=== PATIENT | male | born 1945 | race Caucasian/White ===

== ENCOUNTER 2018-01-23 10:44 | Inpatient (IN) | payer MEDICARE ==
[2018-01-23 11:41] LABS: Bilirubin Negative (Negative); Blood, Urine Small (Negative); Clarity CLEAR (Clear); Glucose, Urine (Dipstick) Negative (Negative); Leukocyte Negative (Negative); Nitrite Negative (Negative); Protein, Urine (Dipstick) 30 mg/dL (Neg-Trace); Specific Gravity, Urine 1.022 (1.002-1.036); Urobilinogen 0.2 mg/dL (0.2-1.0); pH, Urine 6.5 (5.0-9.0)
[2018-01-23 11:42] LABS: #Lymphocytes 0.5 thou/uL (1.20-3.40); #Monocytes 0.7 thou/uL (0.11-0.59); #Neutrophils 15.3 thou/uL (1.40-6.50); %Basophils 0.2 % (0.0-1.0); %Eosinophils 0.1 % (0.0-10.0); %Lymphocytes 2.9 % (21.0-51.0); %Monocytes 4.2 % (0.0-10.0); %Neutrophils 92.5 % (42.0-75.0); Hemoglobin 12.6 g/dL (14.0-18.0); Mean Corpuscular HGB CONC 31.8 g/dL (32.0-36.0); Mean Corpuscular Hemoglobin 27.4 pg (27.0-31.0); Mean Platelet Volume 6.8 fL (7.4-10.4); Platelet Count 209 thou/uL (130-400); RBC Distribution Width 12.5 % (11.5-14.5); White Blood Cell (WBC) Count 16.5 thou/uL (4.8-10.8)
[2018-01-23 11:48] LABS: Bacteria/HPF None Seen HPF (None Seen); Hyaline Casts/LPF 0-3 HYALINE CAST LPF (0-3 Hyaline); Squamous Epithelial 0-3 HPF (0-3); WBC/HPF 0-3 HPF (0-3)
[2018-01-23 12:03] LABS: ALT (SGPT) 9 U/L (8-55); AST (SGOT) 15 U/L (5-34); Albumin 4.1 g/dL (3.4-4.8); Alkaline Phosphatase 111 U/L (40-150); Anion Gap 14 mmol/L (10-20); BUN (Urea Nitrogen) 16 mg/dL (8.4-25.7); Calc. Creatinine Clearance 0 mL/min (70-130); Carbon Dioxide 27 mmol/L (23-31); Chloride 105 mmol/L (98-107); Estimated GFR-MDRD 55; Globulin 1.7 g/dL (2.4-3.5); Glucose 129 mg/dL (83-110); Lipase 12 U/L (8-78); Potassium 3.8 mmol/L (3.5-5.1); Protein, Total 5.8 g/dL (5.8-8.1); Sodium 142 mmol/L (136-145)
[2018-01-23] MEDS ORDERED: Ondansetron ODT 4 MG TAB ONE (12:03)
[2018-01-23 12:04] LABS: Troponin I Less than 0.010 ng/mL (< 0.028)
[2018-01-23] MEDS ORDERED: Acetaminophen 500 MG TAB ONE (13:20)
[2018-01-23] MEDS ORDERED: ISOVUE-370 76%-LOCM 1 ML ONE (14:23)
--- NOTE | 2018-01-23 15:02 | CT ---
CT ABODMEN AND PELVIS: Date: 01/23/18 COMPARISON: 02/28/13. HISTORY: Right flank pain. TECHNIQUE: Serial axial CT imaging obtained at 5 mm intervals from lung bases through pubic symphysis without co ntrast. Coronal reformatted imaging obtained. FINDINGS: The lack of contrast media limits assessment of the viscera, bowel vascular structures, and for lymph adenopathy. There is a stable sliding-type hiatal hernia. Imaged lung bases are unremarkable. No free intraperito saurabh air. Liver is unremarkable. Mid hyperdense material in the gallbladder may signify sludge. Spleen, pancrea s, and adrenal glands are unremarkable. There is a lower pole left renal cyst measuring 2.9 cm. No evidence for obstructive uropathy or nephr olithiasis on the left. There is an exophytic lesion emanating from the lower pole of the right kidney anteriorly with Hounsf ield units of 10-15, suggesting a stable 2.8 cm cyst. Additional posterior right renal cyst measures 3.6 cm. No left nephrolithiasis or evidence of obstructive uropathy noted on the right. Total hip arthroplasty noted on the left. There is nonspecific mild stranding of the perirectal/presacral fat. Limited assessment of the bowel demonstrates no evidence for bowel obstruction or inflammatory change . In the left lower quadrant, lateral to the urinary bladder and posterior to the inguinal canal, there is a 5.8 x 8.0 cm fluid collection. This is felt to most likely represent a postoperative lymphocele associated with prior inguinal hernia repair. Clinical correlation is essential. There is no gas see n within this fluid collection. There is multifocal atherosclerotic calcification of the abdominal aorta and its branches. Osseous structures demonstrate no acute findings. Lower lumbar spine facet hypertrophic change noted, as well as prominent/severe multilevel lumbar spi ne degenerative change with disc space narrowing, degenerative end plate change, and osteophyte forma tion. IMPRESSION: 1. No evidence for obstructive uropathy or nephrolithiasis. 2. Nonspecific fluid collection within the left lower quadrant posterior to the inguinal region sugg esting a postoperative fluid collection associated with prior left inguinal hernia surgery repair in the proper clinical setting. This lesion measures up to 5.8 x 8.0 cm. There is no evidence for internet media planner al gas. Clinical correlation would be required to exclude infection. Results called to Dr. Ramos at 12:30 on 01/23/18. CODE CR. POS: [facility]
[2018-01-23] MEDS ORDERED: Ibuprofen 800 MG TAB ONE (15:59)
--- NOTE | 2018-01-23 16:02 | CT ---
CT ABDOMEN AND PELVIS: 01/23/2018 HISTORY: Right hip pain. Diarrhea and vomiting. Right flank pain. COMPARISON: Noncontrast enhanced CT performed earlier on 01/23/2018. TECHNIQUE: Serial axial CT imaging obtained at 5 mm intervals, from the lung bases through the pubic symphysis, with IV contrast. Coronal reformatted imaging obtained. FINDINGS: The imaged lung bases are unremarkable. There is no free intraperitoneal air. There is a tiny hypodense lesion within the right lobe of the liver, on image 27, too small to charac terize. The spleen, gallbladder, pancreas, adrenal glands, and kidneys demonstrate no acute findings . Stable bilateral renal cysts are noted. There is mild increased density within the presacral fat, which may be inflammatory in nature. There is a fluid collection in the left lower quadrant, with deviation of the urinary bladder to the right, measuring approximately 6 x 8.4 cm, as seen on recent noncontrast enhanced examination. This lesion demonstrates no significant internal enhancement. It demonstrates a thin wall with questionab le minimal wall enhancement. There is mild stranding of the fat adjacent to this left lower quadrant fluid collection. It contains no internal gas. Limited assessment of the bowel without oral contrast demonstrates no evidence for bowel obstruction or focal bowel inflammatory change. There is a hip arthroplasty on the right with adjacent heterotopic bone. Streak artifact from hip ar throplasty limits detailed assessment in this region. There is mild degenerative change at the pubic symphysis. The inferior and superior pubic rami appea r intact. There is extensive degenerative change involving the lower lumbar spine, including multilevel promine nt facet hypertrophy and multilevel thoracic spine and lumbar spine disk space narrowing, degenerativ e endplate change, and osteophyte formation. There are multiple varices in the splenic hilum. IMPRESSION: Nonspecific left lower quadrant fluid collection with a perceptible possibly slightly enhancing rim. There is mild stranding of the adjacent fat, which could be inflammatory in nature. Question a hist ory of prior left lower quadrant/left inguinal surgery. If so, this may represent a sterile or infec laith postoperative fluid collection, including lymphocele or old hematoma. If no history of surgery i n this region, this may represent abscess. No evidence for bowel inflammatory change or obstruction. Numerous additional incidental findings as described above. POS: [facility]
--- NOTE | 2018-01-23 16:07 | RAD ---
2 VIEWS RIGHT HIP: Date: 01/23/18 HISTORY: Right hip pain. History of prior right hip arthroplasty. COMPARISON: 09/18/02. FINDINGS: As noted on the prior study, there is a right total hip prosthesis in similar alignment to the prior exam. There is evidence of heterotopic ossification seen lateral to the right hip. No hardware compli cation is seen. There is no fracture or dislocation appreciated. There is contrast seen within the ur inary bladder, related to recent contrasted study. Contrast is also seen in the normal caliber distal ureters. There is mass effect on the left aspect of the urinary bladder secondary to the large cysti c structure in the left hemipelvis noted on recent CT scan exam. IMPRESSION: Right total hip prosthesis without evidence of an acute osseous abnormality of the right hip. POS: [facility]
[2018-01-23] MEDS ORDERED: Ondansetron ODT 4 MG TAB PO PRN (17:11)
[2018-01-23] MEDS ORDERED: Ondansetron HCl/PF 4 MG/2 ML Vial IVP PRN (17:11)
[2018-01-23] MEDS ORDERED: Milk Of Magnesia 30 ML UDCUP PO PRN (17:11)
[2018-01-23 19:23] VITALS: BMI 26.0
[2018-01-23] MEDS: Sodium Chloride 0.9% 1,000 ML IV SCH (20:17)
[2018-01-23] MEDS: Heparin 5,000 UNITS/ML VIAL SC SCH (20:26)
[2018-01-23] MEDS: Docusate 100 MG CAP PO SCH (20:26)
[2018-01-23] MEDS ORDERED: Pantoprazole 40 MG VIAL IVP SCH (21:00)
[2018-01-23] MEDS ORDERED: CARBINOXAMINE MALEATE 4 MG PO PRN (21:04)
[2018-01-23] MEDS ORDERED: Nitroglycerin 0.4 MG TAB (25 Tab Bottle) SL PRN (21:04)
--- NOTE | 2018-01-23 21:46 | HP ---
PRIMARY CARE PHYSICIAN: Srinivas Dixon M.D. PRESENTING COMPLAINT: Nausea, vomiting, and diarrhea. HISTORY OF PRESENT ILLNESS: Mr. Sly Palmer is a 72-year-old male with a past medical history of hy pertension, hypothyroidism, GERD, CAD status post 2 MIs, hyperlipidemia, and recent prostatectomy in 09/2017 who presented to the emergency room with 1 day history of nausea, vomiting, and diarrhea. He reports that yesterday evening, he ate fried chicken and Sami fries made by his son-in-law. Soon after, he felt his reflux was coming out, so he took his PPI; however, it did not work as usual as it usually does and then he started having nausea eventually vomiting about 4-6 times consisting of rec ently ingested meals and then became bilious. He also had multiple loose stools, moving his bowel ab out 4 times as well. He denies hematemesis or hematochezia. Diarrhea was also non-mucoid. He did n ot eat any other unusual meals and no depression with similar symptoms. He reports chills and subjec tive fevers, eventually lying down on the bathroom trials with a space heater, lying on his right irina e. Last vomiting/diarrhea episode was around 2:00 a.m. today. At the ER, his physical examination w as benign and labs were significant for a white count of 16,500 with 92% neutrophils, but no bands. Initial abdomen/pelvis CT revealed no evidence of obstructive uropathy or nephrolithiasis; however, t here was nonspecific fluid collection in the left lower quadrant posterior to the inguinal region sug gesting postoperative fluid collection associated with a prior left inguinal hernia surgery repair in proper clinical setting. The patient had a prostatectomy in 09/2017 and this is likely sequelae of his surgery. He was hydrated in the emergency room, given Tylenol, ibuprofen and IV Zofran. The jeromy n was then to discharge him in the hospital, but he then had difficulty ambulating and moving his rig ht hip. He has a history of right hip replacement in 2001. In addition, he developed a fever while in the emergency room with temperature reaching 102.9 degree Fahrenheit. Decision was then made to a dmit the patient for observation, and then to get PT/OT as well. He denies chest pain, shortness of breath, palpitations, PND, orthopnea, edema. He has no urinary symptoms. PAST MEDICAL HISTORY: Hypertension, hypothyroidism, GERD, history of MIs with CAD, hyperlipidemia. PAST SURGICAL HISTORY: Right hip replacement in 2001, both knee replacements in 2006, prostatectomy for prostate cancer in 09/2017 and right shoulder surgery in 2007. SOCIAL HISTORY: Does not drink alcohol, use illicit drugs or smoke cigarettes. FAMILY HISTORY: Reviewed and noncontributory. ALLERGIES: NIACIN and PEACONS. HOME MEDICATIONS: Amlodipine/atorvastatin 10/40 mg 1 tablet daily, aspirin 325 mg daily, citalopram hydrobromide 10 mg daily, clopidogrel bisulphate 75 mg tablet 0.5 tab daily, Dexilant 30 mg p.o. john y, levothyroxine 75 mcg daily, olmesartan medoxomil 40 mg daily, tamsulosin 0.4 mg daily, tramadol 5 0 mg daily. REVIEW OF SYSTEMS: A 12-point review of systems conducted, but negative except as stated in HPI. PHYSICAL EXAMINATION: VITAL SIGNS: Largely within normal limits except borderline low blood pressure of 105/65. GENERAL: Not in acute distress. Lying comfortably in bed. HEENT: Normocephalic, atraumatic. Not pale, anicteric. PERRLA, EOMI. Dry mucous membranes. NECK: Supple, full range of movement. No JVD. RESPIRATORY: Vesicular breath sounds bilaterally with no wheezes, rales or rhonchi. CARDIOVASCULAR: S1, S2 only. No murmurs, rubs or gallops. Regular rate and rhythm. ABDOMEN: Soft, nontender, nondistended. No hepatosplenomegaly. Bowel sounds normoactive. MUSCULOSKELETAL: No edema. NEUROLOGIC: Alert and well oriented. No focal deficits. PSYCHIATRIC: Normal mood and affect. SKIN: Warm, dry. No rashes or lesions. Well perfused. MUSCULOSKELETAL: No edema. Moves extremities spontaneously apart from difficulty in moving his righ t hip. LABORATORY DATA: Significant labs include WBC of 16,500 with 95% neutrophils. Serum chemistry is un remarkable. Initial troponin less than 0.010. Urinalysis with no signs of infection. ASSESSMENT AND PLAN: 1. Nausea/vomiting/diarrhea. This is likely secondary to gastroenteritis, likely a viral gastroente ritis and less likely bacterial. He has an episode of fever with T-max 102.9 degree Fahrenheit. He will be hydrated parenterally, and temperature curve will be monitored. We will hold off on antibiot ics for now. Blood and urine cultures will be followed and if he becomes febrile all cultures become positive, then antibiotics to be started. He is clinically stable for now. His presentation could also be due to exacerbation of his GERD, so we will start on IV Protonix 40 mg q.12 hours and monitor his response. 2. Gastroesophageal reflux disease: Plan as above. We will also restart his home p.o. medication. 3. Hypertension: Blood pressure is at goal, so we will hold off on amlodipine for now. We will mon itor blood pressure and then restart once appropriate. 4. Coronary artery disease: The patient has had 2 myocardial infarctions in the past. He is curren tly chest pain free. Initial troponin is negative. We will restart his aspirin and Plavix. 5. Hypothyroidism: We will continue levothyroxine. 6. Hyperlipidemia. Continue statin. 7. Deep venous thrombosis prophylaxis with subcutaneous heparin. 8. Status post prostatectomy. We will continue Flomax. 9. Inability to ambulate: Patient was lying on his bathroom floor for a prolonged period on his rig ht side, likely causing him to have difficulty ambulation now. Also he has a right hip prosthesis. We will get PT/OT evaluation and this will depend on his response to therapy. CODE STATUS: FULL CODE. We will also place on IV Zofran p.r.n. for nausea/vomiting.
[2018-01-23] MEDS: traMADol HCl 50 MG TAB PO PRN (23:26)
[2018-01-23] MEDS: Acetaminophen 325 MG TAB PO PRN (23:27)
[2018-01-24 04:58] LABS: Anion Gap 10 mmol/L (10-20); BUN (Urea Nitrogen) 22 mg/dL (8.4-25.7); Calc. Creatinine Clearance 72 mL/min (70-130); Calcium 8.8 mg/dL (7.8-10.44); Carbon Dioxide 26 mmol/L (23-31); Chloride 107 mmol/L (98-107); Estimated GFR-MDRD 67; Glucose 101 mg/dL (83-110); Potassium 3.9 mmol/L (3.5-5.1); Sodium 139 mmol/L (136-145)
[2018-01-24 05:42] LABS: Band 14 % (5-11); Hemoglobin 11.3 g/dL (14.0-18.0); Lymphocytes 11 % (21-51); MDiff Complete? YES; Mean Corpuscular HGB CONC 32.5 g/dL (32.0-36.0); Mean Corpuscular Hemoglobin 28.1 pg (27.0-31.0); Mean Corpuscular Volume 86.3 fl (80.0-94.0); Mean Platelet Volume 7.7 fL (7.4-10.4); Metamyelocyte 2 % (0-0); Monocytes 5 % (0-10); Neutrophil 67 % (42-75); PLT Morphology Comment Appears Adequate; Platelet Count 145 thou/uL (130-400); RBC Distribution Width 12.6 % (11.5-14.5); RBC Morphology Normal; Reactive Lymphocytes 1 % (0-10); Red Blood Cell (RBC) Count 4.01 mill/uL (4.70-6.10); White Blood Cell (WBC) Count 8.3 thou/uL (4.8-10.8)
[2018-01-24] MEDS: Levothyroxine Sodium 75 MCG TAB PO SCH (05:58)
[2018-01-24] MEDS: Sodium Chloride 0.9% 1,000 ML IV SCH ×3 (05:58→20:56)
[2018-01-24] MEDS: traMADol HCl 50 MG TAB PO PRN (08:01)
[2018-01-24] MEDS: Heparin 5,000 UNITS/ML VIAL SC SCH ×3 (08:02→20:56)
[2018-01-24] MEDS: Potassium Chloride 20 MEQ TAB PO SCH (08:03)
[2018-01-24] MEDS: Docusate 100 MG CAP PO SCH ×2 (08:03→20:55)
[2018-01-24] MEDS: Citalopram 10 MG TAB PO SCH (08:04)
[2018-01-24] MEDS: Tamsulosin HCl 0.4 MG CAP PO SCH (08:04)
[2018-01-24] MEDS: Loratadine 10 MG TAB PO SCH (08:04)
[2018-01-24] MEDS: Acetaminophen 325 MG TAB PO PRN (08:09)
[2018-01-24] MEDS ORDERED: LANSOPRAZOLE 15 MG PO SCH (09:00)
[2018-01-24] MEDS ORDERED: Clopidogrel Bisulfate 75 MG TAB PO SCH (09:00)
[2018-01-24] MEDS ORDERED: Aspirin 325 MG TAB PO SCH (09:00)
--- NOTE | 2018-01-24 11:52 | RAD ---
RIGHT SHOULDER THREE VIEWS: History: Right shoulder pain. FINDINGS/IMPRESSION: There are post op changes of right shoulder arthroplasty. Soft tissue air is present. There is degene rative change at the acromioclavicular joint. Soft tissue air may be due to recent post op change or gas forming bacteria/infection. Clinical corre lation is recommended. POS: [facility]
--- NOTE | 2018-01-24 12:11 | MRI ---
MRI BRAIN WITHOUT IV CONTRAST: Date: 01/24/18 HISTORY: New onset right-sided weakness. Right leg weakness. FINDINGS: No definite signal abnormalities are seen throughout the brain. There is no evidence of an acute infa rction. Septum pellucidum and third ventricle are in the midline. The ventricular system is normal in size, shape, and position. The right vertebral artery, as well as basilar artery are tortuous, but t here are otherwise appropriate flow-voids demonstrated to base of the brain. Mucosal thickening is present in the right maxillary antrum with minimal mucosal thickening seen in a few ethmoidal air cells. The orbits and remainder of the skull base have a normal MRI appearance. Prominent degenerative changes are seen at the odontoid anterior arch of C1 articulation. IMPRESSION: 1. No acute intracranial abnormalities demonstrated. 2. Mild sinus disease. POS: [facility]
--- NOTE | 2018-01-24 12:39 | PDOC.PN ---
- Subjective Encounter Start Date: 01/24/18 Encounter Start Time: 07:10 Subjective: mild llq pain, no nausea -: no diarrhea or vomiting now -: has chronic right shoulder and right hip pain which has gotten worse per pt - Objective MAR Reviewed: Yes Vital Signs & Weight: Vital Signs (12 hours) Temp Pulse Resp BP Pulse Ox 01/24/18 11:43 98.0 F 86 18 110/63 95 01/24/18 09:37 100.7 F H 89 18 Result Diagrams: 01/24/18 03:55 01/24/18 03:55 Phys Exam - Physical Examination HEENT: PERRLA, moist MMs Neck: no JVD, supple Respiratory: no wheezing, no rales Cardiovascular: RRR, no significant murmur Gastrointestinal: soft, no distention, positive bowel sounds no rigidity or guarding Musculoskeletal: no edema, pulses present right knee effusion++ Neurological: non-focal, moves all 4 limbs Psychiatric: normal affect, A&O x 3 Dx/Plan (1) Sepsis Code(s): A41.9 - SEPSIS, UNSPECIFIED ORGANISM Status: Acute Qualifiers: Sepsis type: sepsis due to unspecified organism Qualified Code(s): A41.9 - Sepsis, unspecified organism (2) Bacteremia Code(s): R78.81 - BACTEREMIA Status: Acute (3) Gastroenteritis Code(s): K52.9 - NONINFECTIVE GASTROENTERITIS AND COLITIS, UNSPECIFIED Status : Acute (4) CAD (coronary artery disease) Code(s): I25.10 - ATHSCL HEART DISEASE OF [place] CORONARY ARTERY W/O ANG PCTRS Status: Chronic Qualifiers: Coronary Disease-Associated Artery/Lesion type: [place] artery [place] vs. transplanted heart: [place] heart Associated angina: without angina Qualified Code(s): I25.10 - Atherosclerotic heart disease of [place] coronary artery without angina pectoris (5) HTN (hypertension) Code(s): I10 - ESSENTIAL (PRIMARY) HYPERTENSION Status: Chronic Qualifiers: Hypertension type: essential hypertension Qualified Code(s): I10 - Essential (primary) hypertension (6) Dyslipidemia Code(s): E78.5 - HYPERLIPIDEMIA, UNSPECIFIED Status: Chronic (7) H/O prostatectomy Code(s): Z90.79 - ACQUIRED ABSENCE OF OTHER GENITAL ORGAN(S) Status: Chronic Comment: in sep (8) Hypothyroidism Code(s): E03.9 - HYPOTHYROIDISM, UNSPECIFIED Status: Chronic Qualifiers: Hypothyroidism type: unspecified Qualified Code(s): E03.9 - Hypothyroidism , unspecified - Plan gm +ve rods 2/2 in blood, had temp of 102 on arrival, has llq 5x8cm mass -: also has 14%bands, gen surg consult, pt had likely robotic prostatectomy in -: [place] 09[place], await full culture results -: will place him on meropenem and vanc -: Has worsoning pain in both right shoulder and hip with diff amb/rom, ortho * . -consultation, xrays of shoulder. Right knee chronic effusion, was worse before per patient. Gentle iv hydration, npo until cleared by gen surgery. Review of Systems - Medications/Allergies Allergies/Adverse Reactions: Allergies Allergy/AdvReac Type Severity Reaction Status Date / Time niacin Allergy Unknown Verified 06/24/13 14:05 Medications: Current Medications Acetaminophen (Tylenol) 650 mg PO Q4H PRN PRN Reason: Headache/Fever or Pain Last Admin: 01/24/18 08:09 Dose: 650 mg Citalopram Hydrobromide (Celexa) 10 mg PO DAILY [facility] Last Admin: 01/24/18 08:04 Dose: 10 mg Docusate Sodium (Colace) 100 mg PO BID [facility] Last Admin: 01/24/18 08:03 Dose: 100 mg Heparin Sodium (Porcine) (Heparin) 5,000 units SC TID [facility] Last Admin: 01/24/18 09:44 Dose: Not Given Sodium Chloride (Normal Saline 0.9%) 1,000 mls @ 100 mls/hr IV .Q10H [facility] Last Admin: 01/24/18 08:15 Dose: 1,000 mls Meropenem 1 gm/ Sodium (Chloride) 100 mls @ 200 mls/hr IVPB Q8HR [facility] Vancomycin HCl 1 gm/ Device 200 mls @ 200 mls/hr IVPB Q12HR [facility] Ketorolac Tromethamine (Toradol) 15 mg IVP Q6H PRN PRN Reason: Pain Stop: 01/29/18 12:14 Lactulose (Lactulose) 20 gm PO DAILYPRN PRN PRN Reason: Constipation Levothyroxine Sodium (Synthroid) 75 mcg PO 0600 [facility] Last Admin: 01/24/18 05:58 Dose: 75 mcg Loratadine (Claritin) 10 mg PO DAILY [facility] Last Admin: 01/24/18 08:04 Dose: 10 mg Magnesium Hydroxide (Milk Of Magnesium) 30 ml PO DAILYPRN PRN PRN Reason: Constipation Mirabegron (Myrbetriq Er) 25 mg PO DAILY [facility] Last Admin: 01/24/18 08:42 Dose: 25 mg Nitroglycerin (Nitrostat) 0.4 mg SL PRN PRN PRN Reason: Chest Pain Olmesartan (Benicar) 40 mg PO DAILY [facility] Last Admin: 01/24/18 08:13 Dose: 40 mg Ondansetron HCl (Zofran Odt) 4 mg PO Q6H PRN PRN Reason: Nausea/Vomiting Ondansetron HCl (Zofran) 4 mg IVP Q6H PRN PRN Reason: Nausea/Vomiting Pantoprazole Sodium (Protonix) 40 mg PO DAILY [facility] Last Admin: 01/24/18 08:04 Dose: 40 mg Potassium Chloride (K-Dur) 20 meq PO DAILY [facility] Last Admin: 01/24/18 08:03 Dose: 20 meq Tamsulosin HCl (Flomax) 0.4 mg PO DAILY [facility] Last Admin: 01/24/18 08:04 Dose: 0.4 mg Tizanidine HCl (Zanaflex) 2 mg PO Q4H PRN PRN Reason: Muscle Spasm Tramadol HCl (Ultram) 50 mg PO Q6H PRN PRN Reason: Moderate Pain (4-6) Last Admin: 01/24/18 08:01 Dose: 50 mg
[2018-01-24] MEDS: Ketorolac Tromethamine 30 MG/ML VIAL IVP PRN (13:33)
[2018-01-24] MEDS: tiZANidine HCl 4 MG TAB PO PRN (13:41)
[2018-01-24] MEDS ORDERED: PHENYLEPHRINE-NS 100 MCG/ML 10 ML SYRINGE ONE (13:48)
[2018-01-24] MEDS ORDERED: Lidocaine 1% PF 5 ML VIAL ONE (13:48)
[2018-01-24] MEDS ORDERED: Succinylcholine Chloride 20 MG/ML 10 ml SYRINGE FS ONE (13:48)
[2018-01-24] MEDS ORDERED: PROPOFOL 200 MG/20 ML VIAL ONE (13:48)
[2018-01-24] MEDS ORDERED: ePHEDrine/0.9% NaCl/PF SYRINGE 50 mg/10 ml ONE (13:48)
[2018-01-24] MEDS ORDERED: Dexamethasone 20 MG/5 ML VIAL ONE (13:48)
[2018-01-24] MEDS ORDERED: VANCOMYCIN IVPB PRN (13:56)
[2018-01-24] MEDS ORDERED: Lidocaine 1% w/Epinephrine 1:100K 20 ML VIAL ONE (14:33)
[2018-01-24] MEDS ORDERED: Sodium Chloride 0.9% 1,000 ML IV SCH (15:00)
--- NOTE | 2018-01-24 15:48 | CON ---
The patient from our hospitalist service. HISTORY OF PRESENT ILLNESS: He is a very pleasant 72-year-old gentleman who recently had some form o f viral illness where he is having diarrhea and vomiting. He ended up lying on the bathroom floor fo r quite a few hours due to this illness and states he had very debilitating chills and muscle spasms. Currently, today he seems to be in much less distress. He feels a little bit better, but he still having significant right shoulder and right hip pain, both of which have had a joint replacements on by Dr. Rashid and Dr. Russell. The patient is able to move his arm and leg okay, but the pain is v elizabeth restricted and he is guarded. He has no numbness and tingling in the right upper and lower extre mities. PAST MEDICAL HISTORY: Positive for hypertension, hyperthyroidism, GERD, coronary artery disease, and hyperlipidemia. PAST SURGICAL HISTORY: Hip replacement on the right, bilateral knees, prostatectomy and right should er. SOCIAL HISTORY: He works in the [employer] business. No alcohol or nicotine products. FAMILY HISTORY: Noncontributory. ALLERGIES: NIACIN and PEACONS. CURRENT MEDICATIONS: Amlodipine, atorvastatin, aspirin, citalopram, Plavix, Dexilant, levothyroxine, olmesartan medoxomil, tamsulosin, tramadol. REVIEW OF SYSTEMS: Does not have any shortness of breath, chest pain currently. He is having some b ladder difficulties, but mostly is positive review of systems as for his right shoulder pain and righ t hip pain. Rest review of systems is negative and reviewed. PHYSICAL EXAMINATION: GENERAL: Well-nourished appearing male, resting in bed comfortably, in no acute distress. Speech cl ear. Affect pleasant. Answers questions appropriately. He is alert and oriented x3. His is a t the bedside. HEENT: Normal exam. Face symmetric, tongue midline. NECK: Supple. EXTREMITIES: Upper extremities are equal size, shape, symmetry, normal bulk and tone. Left upper ex tremity: Normal exam. Right upper extremity: He has good strength in the biceps, triceps, and hand . No sensory deficits found either extremity. Pulses are equal. When I trying do internal and exte rnal rotation of the shoulder, it hurts, but the patient is saying it hurts in the deltoid region. P alpation of this area does cause him a great deal of pain that radiates down the arm, although he rosas s state it is getting a little bit better. Lower extremities also appear equal size, shape, symmetry , normal bulk and tone. Left lower extremity: He is able to move these well. Right lower extremity : He can draw his leg up, but he has pain on the lateral side in the greater trochanteric bursa area . Internal and external rotation causes pain into that area, not into the groin. Bilateral PT pulse s are intact. Sensations are intact. Palpation of the right hip causes him some pain. This is over the greater trochanteric area and distal down his about midthigh. X-rays of the shoulder replaceme nt and hip replacement hardware looks fine. He does have air gas noted on the x-ray that were notch in his shoulder. We will wait for the final report. ASSESSMENT: Right shoulder and right hip pain. PLAN: It appears the patient may have strained his muscles, more pain with movement in the muscular group of the upper and lower extremity. Also palpation of the bursa causes him a good deal of pain. We will get some therapy going for patient to work on his painful areas. I also added some 50 mg of Toradol to his regime. His BUN and creatinine normal. I also ordered a sed rate and a C-reactive p rotein. I also ordered some tizanidine to see if this will help his muscle tightness. We will luis bonnie to follow the patient. He does have some positive blood cultures that showed gram-positive rods for the initial result. Hopefully, his symptoms diminish over time as this appears to be from muscle strain by physical exam. I have discussed the plan with patient. He and his are amenable to g o forth with the plan. We will continue to check on him during this hospital stay. This is Brian Amezcua PA-C dictating for Dr. Thor Barba.
--- NOTE | 2018-01-24 16:36 | CON ---
DATE OF CONSULTATION: 01/24/2018 REQUESTING PHYSICIAN: Dr. Al. HISTORY OF PRESENT ILLNESS: A 72-year-old man who is 4 months status post robotic-assisted radical p rostatectomy for prostatic carcinoma. The patient presented with 2-3 day history of malaise, painful joints and fatigue. This is associated with multiple episodes of nausea, vomiting, and diarrhea. W orkup included CT scan of the abdomen and pelvis which revealed a moderate size left lower quadrant a bdominal pelvis fluid collection of undetermined etiology. The patient has recently been seen by [facility] to evaluate his painful joints. Joint aspirate was suspicious for infection. Curren tly, the patient admits to some chills. He has been afebrile since this admission. He is urinary in continent since his prostatectomy. PAST MEDICAL HISTORY: Significant for prostatic carcinoma, essential hypertension, gastroesophageal reflux disease, hypothyroidism, coronary artery disease, status post myocardial infarction and hyperl ipidemia. PAST SURGICAL HISTORY: Pertinent for robotic assisted radical prostatectomy on 09/07/2017, right hip arthroplasty in 2001, bilateral knee arthroplasties in 2006, and right shoulder arthroplasty in 2007 . SOCIAL HISTORY: Patient lives independently. Denies any ethanol, cigarette smoking or illicit drug abuse. FAMILY HISTORY: Noncontributory for this patient's age. REVIEW OF SYSTEMS: Ten point review of systems essentially unremarkable except for as stated in past medical history and chief complaint. PHYSICAL EXAMINATION: GENERAL: This reveals a 72-year-old normally developed man who is otherwise coherent and interactive and appears stated age. The patient is alert and oriented x3 and appears to be in no acute distress at the time of my evaluation. VITAL SIGNS: Currently includes blood pressure 110/63, pulse is 86, respiratory rate is 18, maximum temperature in the last 24 hours is 100.7 degrees Fahrenheit., oxygen saturation is 95% on room air. HEENT: Examination reveals normocephalic and atraumatic. Pupils are equal, round, and reactive to l ight and accommodation. Extraocular muscles are intact bilaterally. No sclerae icterus is present. Oral mucosa is pink and moist. No lesions are noted. HEART: Reveals regular rate and rhythm, no murmurs or gallops auscultated. LUNGS: Clear to auscultation bilaterally. Breathing is regular and unlabored. ABDOMEN: Soft, nontender, nondistended. Liver and spleen are nonpalpable below costal margins. EXTREMITIES: Reveals 2+ radial and pedal pulses bilaterally. He has swollen and tender right knee. NEUROLOGIC: Examination reveals no focal deficits present. MUSCULOSKELETAL: Examination reveals 5/5 muscle strength in bilateral upper and lower extremities. Range of motion about the right shoulder and both knees are restricted due to pain. LABORATORY DATA: Laboratory findings today includes CBC with 8,300 white blood cells, hemoglobin and hematocrit 11.3 and 34.6 respectively. Platelet count is 145,000. Note that white blood cell count yesterday was 16,500. Metabolic profile: Sodium 139, potassium 3.9 , chloride is 107, bicarbonate 26, BUN 22, creatinine is 1.09, glucose 101. C-reactive protein marke dly elevated at 34.74. IMAGING DATA: I have personally reviewed CT scan of the abdomen and pelvis which was obtained yester day and this reveals an 8.4 x 6.0 cm fluid collection in the left lower quadrant and pelvis. There i s no pneumoperitoneum or air fluid levels within the fluid collection itself. There is no pneumatosi s intestinalis noted. IMPRESSION: 1. Septic polyarthritis. 2. Abnormal left lower quadrant pelvic fluid collection of undetermined etiology. 3. Four months status post robotic radical prostatectomy. RECOMMENDATIONS: 1. We will ask Interventional Radiology to evaluate the patient in consideration for CT guided drain age of the left lower quadrant pelvic fluid collection. 2. Patient is being seen by Orthopedic Surgery and we will undergo urgent arthrocentesis and other i ndicated procedures. 3. Initiate broad spectrum antibiotics. 4. There is no further acute general surgical indication for this patient at this time. I will reev aluate the patient following CT guided drainage of the fluid collection and further recommendations w ere made at that time. Thank you again, Dr. Al, for allowing me the opportunity to participate in the care of this patient. I have discussed the above findings and recommendations with the patient and his family at bedside.
[2018-01-24 16:37] LABS: Body Fluid Source SYNOVIAL FLUID; Clarity Cloudy/Turbid (Clear)
[2018-01-24 16:38] LABS: BF Color Brown; RBC Background Count 0.004; RBC Count-Automated 487000 /cumm; Tube # EDTA; WBC/NonHematic-Auto 287000 /cumm
[2018-01-24 16:50] LABS: Synovial Fluid, Glucose 11 mg/dL (Not Available); Synovial Fluid, Protein 4.5 g/dL (Not Available); Synovial Fluid, Uric Acid Less than 5.0 mg/dL (Not Available)
[2018-01-24] MEDS ORDERED: HYDROmorphone 0.5 MG/0.5 ML SYRINGE ONE (17:18)
[2018-01-24] MEDS ORDERED: Fentanyl 100 MCG/2 ML VIAL ONE (17:18)
[2018-01-24 18:17] LABS: BF Segmented Neutrophils 96 %; Cell Count Non Hematic 2 %; Lymphocytes 2 %
[2018-01-24] MEDS ORDERED: Promethazine HCl 25 MG/ML VIAL SLOW IVP PRN (19:15)
[2018-01-24] MEDS ORDERED: Ondansetron HCl/PF 4 MG/2 ML Vial IVP PRN (19:15)
[2018-01-24] MEDS ORDERED: Promethazine HCl 25 MG/ML VIAL IM PRN (19:15)
--- NOTE | 2018-01-24 20:35 | OP ---
DATE OF OPERATION: 01/24/2018 OPERATIONS: 1. Irrigation and debridement of right infected total knee arthroplasty. 2. Irrigation and debridement of right infected reverse shoulder arthroplasty. 3. Aspiration of right hip joint. PREOPERATIVE DIAGNOSES: Septic arthritis of right knee with history of total knee arthroplasty, sept ic arthritis of right shoulder with history of total shoulder arthroplasty, suspected infection of ri ght hip with total hip arthroplasty. POSTOPERATIVE DIAGNOSES: Septic arthritis of right knee with history of total knee arthroplasty, sep tic arthritis of right shoulder with history of total shoulder arthroplasty, suspected infection of r ight hip with total hip arthroplasty. COMPLICATIONS: None. ESTIMATED BLOOD LOSS: 150 mL SURGEON: Thor Barba M.D LOOPER OPERATOR: Veronique Vann PA-C. INDICATIONS: Mr. Palmer is a 72-year-old male who has one day of worsening shoulder, knee and hip pain. He came down with a gastroenteritis type illness. His joints have become progressively more p ainful. He has also been found to have a possible abscess within his abdomen. He had gram-negative rods positive on his blood cultures. We have aspirated his shoulder and this showed gross purulence. He was indicated for irrigation of the shoulder as well as intraoperative aspirate of the knee and hip and then subsequent irrigation of warranted. He has elected to proceed with the operation. DESCRIPTION OF PROCEDURE: Mr. Palmer was identified in the preoperative holding area. His correct extremities were marked. He was carried to the operating room. He was positioned supine. General anesthesia was induced. At this point, we used an 18 gauge needle to aspirate fluid from the patient 's right knee. The fluid was cloudy and purulent in nature. We sent this fluid for culture, cell co unt, and Gram stain. We decided to proceed with irrigation and debridement of the right knee during this operation. I then used an 18-gauge spinal needle under intraoperative x-ray. This was inserted into the hip joint again using intraoperative x-ray confirming position. There was no significant f luid within the hip joint that could be aspirated. I was unable to obtain any significant specimen f rom the hip joint. At this point, we prepped and draped the right upper extremity and the right lower extremity. We the n started with irrigation and debridement of the shoulder. A lateral shoulder incision was made. We dissected down through the subcutaneous tissues to the fascia. The fascia over the deltoid was inci sed. We then split the deltoid proximally approximately 3 cm. This allowed access into the glenohum eral joint. The reverse shoulder arthroplasty was encountered. There was copious amount of purulenc e within the joint. This was evacuated. We then thoroughly irrigated with copious lavage using puls e lavage 5 liters. A deep drain was placed and the wounds were closed by closing the deltoid muscle followed by subcutaneous tissue and nylon for the skin. A sterile dressing was applied. Next, we moved to the right knee. An anterior knee incision was made through the patient's previous scar. We did then dissect down through the subcutaneous tissues and raised a medial flap. We then e ntered the knee joint through a medial parapatellar arthrotomy. Again, copious fluid and purulence w as obtained. This was thoroughly irrigated with copious lavage. There were several small pieces of polyethylene and there were loose within the joint as well. These were removed. Once we had thoroug h irrigation, we placed a deep drain. We then closed with 0 PDS suture, 2-0 PDS suture and nylon for the skin. A sterile dressing was applied at this point. The patient was taken to the recovery room in good condition without complication.
[2018-01-24] MEDS: Vancomycin HCl 1.75 GM in Sodium Chloride 0.9% 500 ML IVPB SCH (20:46)
[2018-01-24] MEDS: MEROPENEM 1 GM/50 ML 1 GM in Premix Bag 1 BAG IVPB SCH ×2 (20:46→21:49)
[2018-01-24] MEDS ORDERED: Vancomycin HCl 1 GM in Premix Bag 1 BAG IVPB SCH (21:00)
[2018-01-24 21:04] LABS: INR-International Normal Ratio 1.4; Prothrombin Time 17.3 SEC (12.0-14.7)
[2018-01-24 21:05] LABS: PTT 31.9 SEC (22.9-36.1)
[2018-01-24 23:39] LABS: HBCM Index 0.05 S/CO (0-0.79); HBSAg Index 0.22 S/CO (0-0.99); HIV (1/2) Antibody/Antigen Non-Reactive (NonReactive); HIV 1/2 INDEX 0.07 S/CO (<1.00); Hep A IgM AB Non-Reactive (NonReactive); Hep A IgM S/CO 0.04 S/CO (0-0.79); Hep B Surf Ag Non-Reactive S/CO (NonReactive); Hep C IgG Ab Non-Reactive (NonReactive); Hep C Index 0.17 S/CO (0-0.79); Hepatitis B Core IGM Abs Non-Reactive (NonReactive)
[2018-01-25] MEDS: Levothyroxine Sodium 75 MCG TAB PO SCH ×2 (05:06→11:43)
[2018-01-25 05:14] LABS: #Lymphocytes 0.4 thou/uL (1.20-3.40); #Monocytes 0.3 thou/uL (0.11-0.59); #Neutrophils 5.5 thou/uL (1.40-6.50); %Eosinophils 0.1 % (0.0-10.0); %Lymphocytes 6.5 % (21.0-51.0); %Monocytes 5.3 % (0.0-10.0); %Neutrophils 88.1 % (42.0-75.0); Hemoglobin 10.4 g/dL (14.0-18.0); Mean Corpuscular HGB CONC 32.6 g/dL (32.0-36.0); Mean Corpuscular Hemoglobin 27.8 pg (27.0-31.0); Mean Corpuscular Volume 85.5 fl (80.0-94.0); Mean Platelet Volume 7.4 fL (7.4-10.4); Platelet Count 137 thou/uL (130-400); RBC Distribution Width 12.4 % (11.5-14.5); Red Blood Cell (RBC) Count 3.75 mill/uL (4.70-6.10); White Blood Cell (WBC) Count 6.2 thou/uL (4.8-10.8)
[2018-01-25 05:28] LABS: ALT (SGPT) 7 U/L (8-55); AST (SGOT) 13 U/L (5-34); Albumin 2.8 g/dL (3.4-4.8); Alkaline Phosphatase 64 U/L (40-150); Anion Gap 7 mmol/L (10-20); BUN (Urea Nitrogen) 26 mg/dL (8.4-25.7); Bilirubin, Total 0.5 mg/dL (0.2-1.2); Calc. Creatinine Clearance 81 mL/min (70-130); Calcium 8.4 mg/dL (7.8-10.44); Carbon Dioxide 25 mmol/L (23-31); Chloride 111 mmol/L (98-107); Estimated GFR-MDRD 76; Globulin 2.2 g/dL (2.4-3.5); Glucose 115 mg/dL (83-110); Potassium 3.9 mmol/L (3.5-5.1); Sodium 139 mmol/L (136-145)
[2018-01-25] MEDS: Ketorolac Tromethamine 30 MG/ML VIAL IVP PRN (05:50)
[2018-01-25] MEDS: Sodium Chloride 0.9% 1,000 ML IV SCH ×2 (05:50→20:46)
[2018-01-25] MEDS: MEROPENEM 1 GM/50 ML 1 GM in Premix Bag 1 BAG IVPB SCH ×3 (05:50→20:46)
--- NOTE | 2018-01-25 08:05 | RAD ---
RIGHT HIP ONE VIEW: History: Right hip pain. FINDINGS/IMPRESSION: Spot fluoroscopic image of the right hip demonstrates a total hip arthroplasty. POS: ISATU
[2018-01-25] MEDS: traMADol HCl 50 MG TAB PO PRN ×2 (09:00→15:50)
[2018-01-25] MEDS ORDERED: Fentanyl 100 MCG/2 ML VIAL ONE (10:26)
[2018-01-25] MEDS ORDERED: Midazolam HCl 2 mg/2 ml Vial ONE (10:26)
[2018-01-25] MEDS: Heparin 5,000 UNITS/ML VIAL SC SCH ×3 (11:41→20:46)
[2018-01-25] MEDS: Citalopram 10 MG TAB PO SCH (11:41)
[2018-01-25] MEDS: Docusate 100 MG CAP PO SCH ×2 (11:41→20:45)
[2018-01-25] MEDS: Loratadine 10 MG TAB PO SCH (11:42)
[2018-01-25] MEDS: Tamsulosin HCl 0.4 MG CAP PO SCH (11:42)
--- NOTE | 2018-01-25 11:43 | PDOC.PN ---
- Subjective Encounter Start Date: 01/25/18 Encounter Start Time: 10:15 Subjective: feels better, no fever or sob -: is npo for CT guided asp - Objective MAR Reviewed: Yes Vital Signs & Weight: Vital Signs (12 hours) Temp Pulse Resp BP Pulse Ox 01/25/18 07:46 98.3 F 79 20 133/74 93 L 01/25/18 04:32 98.6 F 82 18 143/76 H 92 L 01/24/18 23:50 98.2 F 83 18 124/73 97 I&O: 01/24/18 01/25/18 01/26/18 06:59 06:59 06:59 Intake Total 2530 Output Total 650 Balance 1880 Result Diagrams: 01/25/18 04:50 01/25/18 04:50 Phys Exam - Physical Examination HEENT: PERRLA, moist MMs Neck: no JVD, supple Respiratory: no wheezing, no rales Cardiovascular: RRR, no significant murmur Gastrointestinal: soft, non-tender, positive bowel sounds Musculoskeletal: pulses present Neurological: non-focal, moves all 4 limbs Psychiatric: normal affect, A&O x 3 Dx/Plan (1) Sepsis Code(s): A41.9 - SEPSIS, UNSPECIFIED ORGANISM Status: Acute Qualifiers: Sepsis type: sepsis due to unspecified organism Qualified Code(s): A41.9 - Sepsis, unspecified organism (2) Bacteremia Code(s): R78.81 - BACTEREMIA Status: Acute (3) CAD (coronary artery disease) Code(s): I25.10 - ATHSCL HEART DISEASE OF [place] CORONARY ARTERY W/O ANG PCTRS Status: Chronic Qualifiers: Coronary Disease-Associated Artery/Lesion type: [place] artery [place] vs. transplanted heart: [place] heart Associated angina: without angina Qualified Code(s): I25.10 - Atherosclerotic heart disease of [place] coronary artery without angina pectoris (4) HTN (hypertension) Code(s): I10 - ESSENTIAL (PRIMARY) HYPERTENSION Status: Chronic Qualifiers: Hypertension type: essential hypertension Qualified Code(s): I10 - Essential (primary) hypertension (5) Dyslipidemia Code(s): E78.5 - HYPERLIPIDEMIA, UNSPECIFIED Status: Chronic (6) H/O prostatectomy Code(s): Z90.79 - ACQUIRED ABSENCE OF OTHER GENITAL ORGAN(S) Status: Chronic Comment: in sep (7) Hypothyroidism Code(s): E03.9 - HYPOTHYROIDISM, UNSPECIFIED Status: Chronic Qualifiers: Hypothyroidism type: unspecified Qualified Code(s): E03.9 - Hypothyroidism , unspecified (8) Septic arthritis Status: Acute Qualifiers: Septic arthritis location: multiple locations Comment: right shoulder, knee and likely right hip as well - Plan s/p debridement of right shoulder and knee, had asp of hip -: await full culture results, prelim its gm+ rods -: is on christelle and vanc, d/w yesterday -: is on iv fluids, toradol prn -: to mobilize as tolerated, for CT guided asp of LLQ fluid collection * . Review of Systems - Medications/Allergies Allergies/Adverse Reactions: Allergies Allergy/AdvReac Type Severity Reaction Status Date / Time niacin Allergy Unknown Verified 06/24/13 14:05 Medications: Current Medications Acetaminophen (Tylenol) 650 mg PO Q4H PRN PRN Reason: Headache/Fever or Pain Last Admin: 01/24/18 08:09 Dose: 650 mg Citalopram Hydrobromide (Celexa) 10 mg PO DAILY [facility] Last Admin: 01/24/18 08:04 Dose: 10 mg Docusate Sodium (Colace) 100 mg PO BID [facility] Last Admin: 01/24/18 20:55 Dose: 100 mg Heparin Sodium (Porcine) (Heparin) 5,000 units SC TID [facility] Last Admin: 01/24/18 20:56 Dose: 5,000 units Sodium Chloride (Normal Saline 0.9%) 1,000 mls @ 100 mls/hr IV .Q10H [facility] Last Admin: 01/25/18 05:50 Dose: 1,000 mls Meropenem 1 gm/ Device 50 mls @ 100 mls/hr IVPB Q8HR [facility] Last Admin: 01/25/18 05:50 Dose: 50 mls Vancomycin HCl 1.75 gm/ Sodium (Chloride) 500 mls @ 250 mls/hr IVPB 1500 [facility] Last Admin: 01/24/18 20:46 Dose: Not Given Ketorolac Tromethamine (Toradol) 15 mg IVP Q6H PRN PRN Reason: Pain Stop: 01/29/18 12:14 Last Admin: 01/25/18 05:50 Dose: 15 mg Lactulose (Lactulose) 20 gm PO DAILYPRN PRN PRN Reason: Constipation Levothyroxine Sodium (Synthroid) 75 mcg PO 0600 [facility] Last Admin: 01/25/18 05:06 Dose: Not Given Loratadine (Claritin) 10 mg PO DAILY [facility] Last Admin: 01/24/18 08:04 Dose: 10 mg Magnesium Hydroxide (Milk Of Magnesium) 30 ml PO DAILYPRN PRN PRN Reason: Constipation Mirabegron (Myrbetriq Er) 25 mg PO DAILY [facility] Last Admin: 01/24/18 08:42 Dose: 25 mg Miscellaneous Medication (Pharmacy To Dose) 1 each IVPB PRN PRN PRN Reason: Pharmacy to dose Nitroglycerin (Nitrostat) 0.4 mg SL PRN PRN PRN Reason: Chest Pain Olmesartan (Benicar) 40 mg PO DAILY [facility] Last Admin: 01/24/18 08:13 Dose: 40 mg Ondansetron HCl (Zofran Odt) 4 mg PO Q6H PRN PRN Reason: Nausea/Vomiting Ondansetron HCl (Zofran) 4 mg IVP Q6H PRN PRN Reason: Nausea/Vomiting Pantoprazole Sodium (Protonix) 40 mg PO DAILY [facility] Last Admin: 01/24/18 08:04 Dose: 40 mg Potassium Chloride (K-Dur) 20 meq PO DAILY [facility] Last Admin: 01/24/18 08:03 Dose: 20 meq Tamsulosin HCl (Flomax) 0.4 mg PO DAILY [facility] Last Admin: 01/24/18 08:04 Dose: 0.4 mg Tizanidine HCl (Zanaflex) 2 mg PO Q4H PRN PRN Reason: Muscle Spasm Last Admin: 01/24/18 13:41 Dose: 2 mg Tramadol HCl (Ultram) 50 mg PO Q6H PRN PRN Reason: Moderate Pain (4-6) Last Admin: 01/25/18 09:00 Dose: 50 mg
[2018-01-25] MEDS: Potassium Chloride 20 MEQ TAB PO SCH (11:44)
[2018-01-25] MEDS: tiZANidine HCl 4 MG TAB PO PRN (11:48)
--- NOTE | 2018-01-25 12:51 | CT ---
CT GUIDED PELVIC ABSCESS DRAINAGE. HISTORY: Left lower quadrant fluid collection. FINDINGS: After explaining the procedure and answering all questions, the anterior aspect of the left lower doreen drant was prepped and draped in the usual sterile fashion. Sterile technique, buffered local anesthe daniel, CT guidance, and an anterior approach were used to carefully advance a 19-gauge needle into the left groin fluid collection. An 0.035 Amplatz wire was used to hold position, and the tract was dila laith to 8 Welsh. Locking loop 8 Welsh drain was placed in the fluid cavity and secured externally. A total volume of 120 cc slightly cloudy yellow liquid was drainage. A portion was sent to the [facility] for evaluation. The patient tolerated the procedure well and was returned in improved conditi on. IMPRESSION: Technically successful CT-guided drainage left lower quadrant fluid collection. Pathology is pending . POS: TANIA
--- NOTE | 2018-01-25 13:18 | PRG ---
DATE OF EVALUATION: 01/25/2018 SUBJECTIVE: Sly's postop day #1 from incision, drainage, washout of septic periprosthetic arthritis of the, 1. Right glenohumeral joint. 2. Right total knee arthroplasty. He feels much better today. He is doing very well and he slept a ll night last night according to the patient. His pain has improved significantly. OBJECTIVE: VITAL SIGNS: Temperature is 98.3, pulse 74, respiratory rate 20, O2 saturation is 98% on room air, b lood pressure is 126/81. GENERAL: He is alert and oriented to person, place, time, and situation. He is nonfocal and appropr iate with examiner and much easier to converse with very little somnolence today. EXTREMITIES: Right shoulder dressed with drains as is the right knee. He is neurovascularly intact in both upper and lower extremities. No gross strikethrough is appreciated. IMPRESSION: Postop day 1, 72-year-old white male with, 1. 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 2. Periprosthetic septic arthritis, right knee. PLAN: Continue current management of antibiotics per Dr. Roy. We will follow with the patient adria guiow. Give consideration of secondary washout of long-term, plans will be discussed with his primar y surgeon, Dr. Russell for decisions about whether or not this patient will require excisional arthr oplasty as well as antibiotic impregnated prosthesis temporarily and revision arthroplasty.
[2018-01-25 14:55] LABS: Creatinine, Urine Less than 20.00 mg/dL (63-166); Urea Nitrogen, Random Urine Less than 40 mg/dl
[2018-01-25] MEDS: Vancomycin HCl 1.75 GM in Sodium Chloride 0.9% 500 ML IVPB SCH (15:42)
--- NOTE | 2018-01-25 15:47 | CON ---
DATE OF CONSULTATION: 01/25/2018 REASON FOR CONSULTATION: Bacteremia. HISTORY OF PRESENT ILLNESS: A 72-year-old patient with a history of hypertension, hypothyroidism, and coronary artery disease as well as prostate cancer with recent prostatectomy done in [place] who was in his usual state until 2 days before admission when he developed nausea and vomiting. He came to the emergency room and was about to be released when family members noticed that he was limping and could not hold his weight because of right hip pain. Because of that new symptom recognition, discharge was held and eventually developed a fever. The right shoulder became painful and he was admitted. CT abdomen and pelvis was followed up and showed fluid collection. This was not oral contrast study, so only the IV contrast was given to the patient which demonstrated nonspecific left lower quadrant fluid collection with possible and slightly enhancing rim and mild stranding of the adjacent fat. There is no evidence of bowel inflammatory change or obstruction noted. Patient had drainage procedure which was percutaneous drainage procedure and 120 mL of slightly cloudy yellow liquid was drained. The pigtail catheter was left in place and currently Mr. Palmer is awake and he is feeling better. No headaches, visual symptoms, sore throat, odynophagia, dysphagia, no back pain, right shoulder pain which is moderate. Some neck tenderness. Some headaches in the occipital area, moderate. No dyspnea or chest pain, no cough, no sputum production. Little bit of abdominal tenderness. No genitourinary symptoms. No joint inflammatory activity outside the involved area of the right knee and right shoulder. No neurologic symptoms although he was confused on arrival, probably from encephalopathy related to sepsis. PAST MEDICAL HISTORY: Includes hypertension, hypothyroidism, GERD, coronary artery disease, and hyperlipidemia. PAST SURGICAL HISTORY: Right hip replacement, bilateral knee replacements, previous prostatectomy in September of last year, and right shoulder surgery. 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 Lives in [place]. Never a smoker. No alcoholic beverage use. FAMILY HISTORY: Noncontributory. ALLERGIES: NIACIN. CURRENT MEDICATIONS: Tylenol, Celexa, Colace, heparin, Toradol, lactulose, Synthroid, loratadine, meropenem, olmesartan, and vancomycin. PHYSICAL EXAMINATION: VITAL SIGNS: T-max 100.7. He has been afebrile for the past few hours. Other vital signs are normal. O2 sat 98%. The patient has peripheral IV access and voiding spontaneously. Areas of telangiectases in facial region. HEENT: Ocular movements are conjugate. Sclerae are white. Patient has dentures in upper and lower maxilla. NECK: Supple, no jugular vein distention. LUNGS: Symmetric clear breath sounds. HEART: S1 and S2, regular rate. No S3, S4. ABDOMEN: Soft with mild tenderness on percussion. No ascites, no genital abnormalities. EXTREMITIES: Knee with dressing following the arthroscopy. Pulses 1+ in dorsalis pedis. He is moving extremities with limitations imposed by the right knee and shoulder inflammatory process. NEUROLOGIC: Cognitive function appears to be intact. LABORATORY DATA: White cell count down from 16-6.2, hemoglobin 10.4, platelets 137 with 88% neutrophils. INR 1.4, sodium 142, creatinine is at 0.97, which is improved from admission. Albumin 2.8, lipase 12. Urinalysis was remarkable for 11-20 rbc's. Synovial fluid with 287,000 wbc's, predominance of mature neutrophils serology with negative hepatitis C and HIV. Microbiology with gram positive rods in 2 out of 2 sets of blood cultures and from knee and shoulder gram positive rods identified in the Gram stain, pending cultures. ASSESSMENT: Coronary artery disease, prostatectomy for management of prostate cancer at the end of last year and now acute onset of nausea and vomiting with fluid collection in the left lower quadrant, not apparently associated with any bowel inflammatory process which has resulted in bacteremia with seeding of multiple joints that had been washed out. The organism appears to be an anaerobe and Clostridium is very likely in this setting. DISCUSSION: The main concern is with nature of this fluid collection, it does not seem to be associated with colon and what has accumulated in the bag resembles urine, so we will go ahead and submit urea and creatinine in the fluid to see if it is urine. If that is the case, then may implicate leakage from the bladder or residual from the prostatectomy surgery. Otherwise it may be an infected seroma which accumulated following the prostatectomy. He will have to continue treatment without probably continue meropenem until we clarify the issue of the presence of urine or not in the bag. It could potentially be transitioned to a different antimicrobial for continuation of therapy with more restricted activity against Clostridium species if that is confirmed as the pathogen. [facility]
[2018-01-25] MEDS: Acetaminophen 325 MG TAB PO PRN ×2 (15:50→20:48)
--- NOTE | 2018-01-25 18:48 | OP ---
DATE OF PROCEDURE: 01/24/2018 PREPROCEDURAL DIAGNOSIS: Right shoulder acute effusion with periprosthetic arthralgia. POSTPROCEDURAL DIAGNOSIS: Septic arthritis periprosthetic in nature, right shoulder. SURGEON: Damian Tay PA-C. ANESTHESIA: Xylocaine 1% skin wheal. SPECIMENS: Gram stain culture and sensitivity, glucose, protein, cell count with differential and cr ystal analysis sent. FINDINGS: Gross examination and 15 mL removed was purulent appearing brown dishwater fluid without a string sign consistent grossly with a septic effusion. INDICATIONS FOR SURGERY: Sly is a 72-year-old white male who has had progressive constitutional symp toms over the last 24 hours. He was admitted to the medicine service. He has had right shoulder, ri ght hip and right knee arthralgias and effusion of the right knee and right shoulder. Plain radiogra phs demonstrated air fluid collection in the right shoulder with two views consistent with intraartic ular septic process. Our service was consulted for evaluation of this. Also of note, the patient khan s been hypertensive today with fevers, nausea, vomiting, and significant lethargy. PROCEDURE IN DETAIL: After informed consent obtained, the right shoulder was prepped and draped in u sual sterile fashion. Skin wheal anesthesia 1% Xylocaine was placed and Z-line tract was then brian d down to the pseudocapsule with 18-gauge 1 inch and half needle. Immediate aspiration of both gas a nd approximately 15-20 mL of cloudy brown dishwater fluid was aspirated. This was sent for specimen as named above. The needle was withdrawn and procedure terminated without complications. Sterile dr bruno was applied. PLAN: 1. The patient will be taken to the operative suite for immediate incision and drainage, washout of the right shoulder as well as expected washout of the right knee and a needle arthrocentesis under fl uoroscopic guidance of the right hip. He seems to be in early stages of septic shock and his blood c ultures have been positive for gram positive rods. His right shoulder is definitely septic and I navin pect that his knee is as well and quite possibly his hip. He will be taken to the operative suite im mediately. 2. Dr. Varma was notified of patient's condition and our plan. 3. The risks, benefits, options, alternatives, and rationale for proceeding with incision, drainage, washout, exploration of the right shoulder and right knee been explained in great detail. He is kuldip dy to proceed. All questions were answered. No guarantee of outcome stated or implied.
[2018-01-26] MEDS: Ketorolac Tromethamine 30 MG/ML VIAL IVP PRN ×3 (01:16→20:57)
[2018-01-26] MEDS: Sodium Chloride 0.9% 1,000 ML IV SCH ×2 (05:52→18:09)
[2018-01-26] MEDS: MEROPENEM 1 GM/50 ML 1 GM in Premix Bag 1 BAG IVPB SCH ×3 (05:52→21:06)
[2018-01-26] MEDS: traMADol HCl 50 MG TAB PO PRN (05:52)
--- NOTE | 2018-01-26 08:50 | RAD ---
RIGHT KNEE TWO VIEWS: History: Right knee septic arthritis. FINDINGS: A total knee prosthesis which is in satisfactory position. There is a small joint effusion or the kne e. I do not see any bony destructive change. There appears to be some slight soft tissue swelling ant eriorly. IMPRESSION: Total knee prosthesis in satisfactory position. There is a small joint effusion noted. POS: C
[2018-01-26] MEDS: Heparin 5,000 UNITS/ML VIAL SC SCH ×3 (09:03→21:04)
[2018-01-26] MEDS: Potassium Chloride 20 MEQ TAB PO SCH (09:04)
[2018-01-26] MEDS: Loratadine 10 MG TAB PO SCH (09:04)
[2018-01-26] MEDS: Tamsulosin HCl 0.4 MG CAP PO SCH (09:05)
[2018-01-26] MEDS: Docusate 100 MG CAP PO SCH ×2 (09:08→21:03)
[2018-01-26] MEDS: Citalopram 10 MG TAB PO SCH (09:08)
--- NOTE | 2018-01-26 12:34 | PDOC.PN ---
- Subjective Encounter Start Date: 01/26/18 Encounter Start Time: 10:20 Subjective: no sob, feels better -: is eating well -: c/o neck pain and trouble with rom - Objective MAR Reviewed: Yes Vital Signs & Weight: Vital Signs (12 hours) Temp Pulse Resp BP Pulse Ox 01/26/18 11:00 98.3 F 65 20 165/107 H 95 01/26/18 08:00 98.5 F 73 16 166/82 H 94 L 01/26/18 04:00 98.3 F I&O: 01/25/18 01/26/18 01/27/18 06:59 06:59 06:59 Intake Total 2530 2515 Output Total 650 130 Balance 1880 2385 Result Diagrams: 01/25/18 04:50 01/25/18 04:50 Phys Exam - Physical Examination HEENT: PERRLA, moist MMs Neck: no JVD, supple Respiratory: no wheezing, no rales Cardiovascular: RRR, no significant murmur Gastrointestinal: soft, non-tender, positive bowel sounds abd drain has yellow tinged fluid Musculoskeletal: no edema, pulses present right shoulder and right knee has drains+ Neurological: non-focal, moves all 4 limbs Psychiatric: normal affect, A&O x 3 Dx/Plan (1) Septic arthritis Status: Acute Qualifiers: Septic arthritis location: multiple locations Comment: right shoulder, knee and likely right hip as well (2) Sepsis Code(s): A41.9 - SEPSIS, UNSPECIFIED ORGANISM Status: Acute Comment: clostridium perfringens (3) Bacteremia Code(s): R78.81 - BACTEREMIA Status: Acute Comment: c.perfringens (4) CAD (coronary artery disease) Code(s): I25.10 - ATHSCL HEART DISEASE OF [place] CORONARY ARTERY W/O ANG PCTRS Status: Chronic Qualifiers: Coronary Disease-Associated Artery/Lesion type: [place] artery [place] vs. transplanted heart: [place] heart Associated angina: without angina Qualified Code(s): I25.10 - Atherosclerotic heart disease of [place] coronary artery without angina pectoris (5) HTN (hypertension) Code(s): I10 - ESSENTIAL (PRIMARY) HYPERTENSION Status: Chronic Qualifiers: Hypertension type: essential hypertension Qualified Code(s): I10 - Essential (primary) hypertension (6) Dyslipidemia Code(s): E78.5 - HYPERLIPIDEMIA, UNSPECIFIED Status: Chronic (7) H/O prostatectomy Code(s): Z90.79 - ACQUIRED ABSENCE OF OTHER GENITAL ORGAN(S) Status: Chronic Comment: in sep (8) Hypothyroidism Code(s): E03.9 - HYPOTHYROIDISM, UNSPECIFIED Status: Chronic Qualifiers: Hypothyroidism type: unspecified Qualified Code(s): E03.9 - Hypothyroidism , unspecified - Plan is on meropenem and vanc per advice -: abd drainage fluid is being tested to r/o if its urine -: will obtain CT c.spine to r/o epidural abscess/collection in view of pain -: is hemodynamically stable -: gentle iv hydration, d/w family at bedside * . Review of Systems - Medications/Allergies Allergies/Adverse Reactions: Allergies Allergy/AdvReac Type Severity Reaction Status Date / Time niacin Allergy Unknown Verified 06/24/13 14:05 Medications: Current Medications Acetaminophen (Tylenol) 650 mg PO Q4H PRN PRN Reason: Headache/Fever or Pain Last Admin: 01/25/18 20:48 Dose: 650 mg Citalopram Hydrobromide (Celexa) 10 mg PO DAILY [facility] Last Admin: 01/26/18 09:08 Dose: 10 mg Docusate Sodium (Colace) 100 mg PO BID [facility] Last Admin: 01/26/18 09:08 Dose: 100 mg Heparin Sodium (Porcine) (Heparin) 5,000 units SC TID [facility] Last Admin: 01/26/18 09:03 Dose: 5,000 units Sodium Chloride (Normal Saline 0.9%) 1,000 mls @ 100 mls/hr IV .Q10H [facility] Last Admin: 01/26/18 05:52 Dose: 1,000 mls Meropenem 1 gm/ Device 50 mls @ 100 mls/hr IVPB Q8HR [facility] Last Admin: 01/26/18 05:52 Dose: 50 mls Vancomycin HCl 1.75 gm/ Sodium (Chloride) 500 mls @ 250 mls/hr IVPB 1500 [facility] Last Admin: 01/25/18 15:42 Dose: 500 mls Ketorolac Tromethamine (Toradol) 15 mg IVP Q6H PRN PRN Reason: Pain Stop: 01/29/18 12:14 Last Admin: 01/26/18 11:38 Dose: 15 mg Lactulose (Lactulose) 20 gm PO DAILYPRN PRN PRN Reason: Constipation Levothyroxine Sodium (Synthroid) 75 mcg PO 0600 [facility] Last Admin: 01/25/18 11:43 Dose: 75 mcg Loratadine (Claritin) 10 mg PO DAILY [facility] Last Admin: 01/26/18 09:04 Dose: 10 mg Magnesium Hydroxide (Milk Of Magnesium) 30 ml PO DAILYPRN PRN PRN Reason: Constipation Mirabegron (Myrbetriq Er) 25 mg PO DAILY [facility] Last Admin: 01/26/18 09:06 Dose: 25 mg Miscellaneous Medication (Pharmacy To Dose) 1 each IVPB PRN PRN PRN Reason: Pharmacy to dose Nitroglycerin (Nitrostat) 0.4 mg SL PRN PRN PRN Reason: Chest Pain Olmesartan (Benicar) 40 mg PO DAILY [facility] Last Admin: 01/26/18 09:05 Dose: 40 mg Ondansetron HCl (Zofran Odt) 4 mg PO Q6H PRN PRN Reason: Nausea/Vomiting Ondansetron HCl (Zofran) 4 mg IVP Q6H PRN PRN Reason: Nausea/Vomiting Pantoprazole Sodium (Protonix) 40 mg PO DAILY [facility] Last Admin: 01/26/18 09:04 Dose: 40 mg Potassium Chloride (K-Dur) 20 meq PO DAILY [facility] Last Admin: 01/26/18 09:04 Dose: 20 meq Tamsulosin HCl (Flomax) 0.4 mg PO DAILY [facility] Last Admin: 01/26/18 09:05 Dose: 0.4 mg Tizanidine HCl (Zanaflex) 2 mg PO Q4H PRN PRN Reason: Muscle Spasm Last Admin: 01/25/18 11:48 Dose: 2 mg Tramadol HCl (Ultram) 50 mg PO Q6H PRN PRN Reason: Moderate Pain (4-6) Last Admin: 01/26/18 05:52 Dose: 50 mg
--- NOTE | 2018-01-26 14:46 | CT ---
CT GUIDED PELVIC ABSCESS DRAINAGE. HISTORY: Left lower quadrant fluid collection. FINDINGS: After explaining the procedure and answering all questions, the anterior aspect of the left lower doreen drant was prepped and draped in the usual sterile fashion. Sterile technique, buffered local anesthe daniel, CT guidance, and an anterior approach were used to carefully advance a 19-gauge needle into the left groin fluid collection. An 0.035 Amplatz wire was used to hold position, and the tract was dila laith to 8 British. Locking loop 8 British drain was placed in the fluid cavity and secured externally. A total volume of 120 cc slightly cloudy yellow liquid was drainage. A portion was sent to the [facility] for evaluation. The patient tolerated the procedure well and was returned in improved conditi on. IMPRESSION: Technically successful CT-guided drainage left lower quadrant fluid collection. Pathology is pending .
--- NOTE | 2018-01-26 14:54 | PRG ---
DATE OF SERVICE: 01/26/2018 SUBJECTIVE: Sly is a 72-year-old white male who is postop day 2 for incision, drainage, washout, right shoulder and right knee septic periprosthetic ___ arthritis. He is doing much better subjectively. At this point, happy with his postoperative results, his blood pressures normalized. His temperature was also normalized. He is eating and he actually stood and walked yesterday. OBJECTIVE: Temperature 98.3 this morning, pulse 87, O2 saturations 92% on room air, blood pressure 116/75. He is alert and oriented to person, place, time, and situation appropriate with examiner, he smiles appropriately and conversive. He can actually move his right arm now. His right knee drained and unfortunately was pulled accidentally, his right shoulder drains still intact and drain output. He has had 130 mL out of his abdominal drain, which was CT guided and placed 2 days ago. It is being tested currently for urine. Some question of maybe uteroperitoneal fistula or other etiology for his abdominal fluid collection. He is neurovascularly intact in the right upper and lower extremities. Overall, patient is improving significantly. IMPRESSION: Septic arthritis, periprosthetic in nature of the right shoulder and right knee. Pathogen appears to be Clostridium perfringens, which is atypical organism for this type of problem. PLAN: 1. Antibiotic choice deference to Dr. Roy. 2. We have talked about long-term prognosis with patient's regarding short- term PICC line placement, antibiotic selection, and ultimately we may refer him back to Dr. Rashid for long-term followup and treatment. Otherwise we will assume orthopaedic management. We will recheck the patient tomorrow. Please note Dr. Barba and I examined the patient together. BENNY
--- NOTE | 2018-01-26 15:06 | MRI ---
MRI CERVICAL SPINE WITH AND WITHOUT GADOLINIUM CONTRAST: Date: 01/26/18 HISTORY: Epidural bacteremia. Neck pain. Meningitis. FINDINGS: There is desiccation of all of the intervertebral discs. Bone marrow signal includes mild discogenic end plate changes without focal inflammation. C2-3: Disc space narrowing. Mild osteophytosis. Central canal and neural foramina are patent. C3-4: Disc space narrowing. Circumferential degenerative changes with mild stenosis of the central canal. M oderate right and severe left foraminal stenoses. C4-5: Disc space narrowing. Posterior osteophyte/disc complex and circumferential degenerative changes with moderate stenosis of the central canal. Severe bilateral foraminal stenoses. No abnormal enhancement . No abnormal signal within the spinal cord. C5-6: Posterior disc bulge and circumferential degenerative changes with mild stenosis of the central canal . Mild bilateral foraminal stenoses. C6-7: Posterior osteophyte/disc complex with circumferential degenerative changes. Moderate to severe centr al canal stenosis. Severe bilateral foraminal stenoses. C7-T1: Disc space narrowing with minimal degenerative spondylolisthesis. Circumferential degenerative change s with moderate stenosis of the central canal. Neural foramina remain patent. IMPRESSION: 1. No inflammatory abnormalities of the cervical spine are apparent. 2. Multilevel degenerative changes including severe bilateral foraminal stenoses. POS: TANIA
[2018-01-26] MEDS: Acetaminophen 325 MG TAB PO PRN (15:26)
--- NOTE | 2018-01-26 15:36 | PQF ---
DATE: 01-26-18 ATTN: DR. KIRK MORALES Please exercise your independent, professional judgment in responding to the clarification form. Clinical indicators are provided on the bottom of this form for your review Please check appropriate box(s): R Knee [ x] R Knee Excisional Debridement [ ] R knee Non-excisional Debridement: (Removal by flushing, brushing, chemical , or washing) [ ] Other procedure diagnosis [ ] Unable to determine R Shoulder [x ] R Shoulder Excisional Debridement [ ] R Shoulder Non-excisional Debridement: (Removal by flushing, brushing, chemical, or washing) [ ] Incision and Drainage only (No Debridement): [ ] Other procedure diagnosis [ ] Unable to determine For continuity of documentation, please document condition throughout progress notes and discharge summary. Thank You. CLINICAL INDICATORS - SIGNS / SYMPTOMS / LABS OPERATIVE NOTE 01-24-18: IRRIGATION AND DEBRIDEMENT OF RIGHT INFECTED TOTAL KNEE ARTHROPLASTY IRRIGATION AND DEBRIDEMENT OF RIGHT INFECTED REVERSE SHOULDER ARTHROPLASTY. OPERATIVE NOTE 01-24-18: WE DISSECTED DOWN THROUGH THE SUBCUTANEOUS TISSUES TO THE FASCIA. THE FASCIA OVER THE DELTOID WAS INCISED. THERE WAS COPIOUS AMOUNT OF PURULENCE WITHIN JOINT. THIS WAS EVACUATED. OPERATIVE NOTE 01-24-18: WE DID THEN DISSECT DOWN THROUGH SUBCUTANEOUS TISSUES AND RAISED A MEDIAL FLAP. WE THEN ENTERED THE KNEE JOINT THROUGH A MEDIAL PARAPATELLAR ARTHROTOMY. AGAIN, COPIOUS FLUID AND PURULENCE WAS OBTAINED, THIS WAS THOROUGHLY IRRIGATED WITH COPIOUS LAVAGE. THERE WERE SEVERAL SMALL PIECES OF POLYETHYLENE AND THERE WERE LOOSE WITHIN THE JOINT WELL. THESE WERE REMOVED. RISK FACTORS: OPERATIVE NOTE 01-24-18: IRRIGATION AND DEBRIDEMENT OF RIGHT INFECTED TOTAL KNEE ARTHROPLASTY IRRIGATION AND DEBRIDEMENT OF RIGHT INFECTED REVERSE SHOULDER ARTHROPLASTY. TREATMENTS: OPERATIVE NOTE 01-24-18: IRRIGATION AND DEBRIDEMENT OF RIGHT INFECTED TOTAL KNEE ARTHROPLASTY IRRIGATION AND DEBRIDEMENT OF RIGHT INFECTED REVERSE SHOULDER ARTHROPLASTY. (This form is maintained as a part of the permanent medical record) 2014 [employer]. All Rights Reserved [email or web address] [email or web address] Office: [phone] BENNY
[2018-01-26] MEDS: Vancomycin HCl 1.75 GM in Sodium Chloride 0.9% 500 ML IVPB SCH (16:10)
[2018-01-26] MEDS: Morphine 4 MG/ML VIAL SLOW IVP PRN ×2 (16:11→22:33)
[2018-01-26 16:43] LABS: Vancomycin, Trough 6.6 ug/mL
--- NOTE | 2018-01-26 16:45 | PRG ---
DATE OF SERVICE: 01/26/2018 ATTENDING PHYSICIAN: Jamie Varma DO SUBJECTIVE: Mr. 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 He was admitted with a 2-day history of malaise, painful join ts, fatigue as well as nausea, vomiting, and diarrhea. A CT scan of the abdomen and pelvis showed a left lower quadrant fluid collection of undetermined etiology. He had a percutaneous drain of this f luid collection on 01/25/2018. Microbiology reports from the drainage show many gram negative rods a nd moderate gram positive rods. Blood cultures as well as joint aspirate reveal infection with Clost ridium perfringens. The patient has a pigtail catheter that remains in place following his percutane ous drainage of his left lower quadrant for fluid collection. This morning on exam, the patient repo rts feeling better overall, but does report some neck pain and stiffness. He has had past episodes o f meningitis. OBJECTIVE: VITAL SIGNS: Blood pressure 166/82, pulse 73, temperature 98.5, respirations 16, O2 sat 94% on room air. GENERAL: The patient is a middle-aged adult male, in no acute distress. HEENT: Normocephalic and atraumatic. RESPIRATORY: Breath sounds clear to auscultation bilaterally. CARDIOVASCULAR: Regular rate and rhythm. Normal S1 and S2. No murmurs, gallops or rubs. ABDOMEN: A pigtail catheter in place in the left lower quadrant. NEUROLOGIC: The patient is grossly alert and oriented. He has no focal deficits. LABORATORY DATA: There are no labs to review today. IMAGING: There are no images to review. ASSESSMENT: 1. Septic arthritis. 2. Bacteremia with Clostridium perfringens. 3. Left lower quadrant fluid collection suspicious for abscess. PLAN: Continue antibiotics per recommendations of Dr. Roy. His joints are being managed by Dr. Carlos Manuel rosario in Orthopedic Surgery. Continue care as ordered. We will consider taking out the pigtail ca theter on Wednesday. Surgery will continue to follow from a distance. This patient was seen and examined along with Dr. Varma on rounds who agrees with the assessment and plan.
--- NOTE | 2018-01-26 18:31 | PRG ---
DATE OF SERVICE: 01/26/2018 SUBJECTIVE: The patient had lot of neck pain. Had an MRI C-spine which is discussed below, able to walk this morning. No respiratory symptoms or abdominal pain, no diarrhea. OBJECTIVE: VITAL SIGNS: T-max 98.9, blood pressure 148/85, pulse 80, respirations 20, O2 sat 95%. GENERAL: Appears no distress, a little bit diaphoretic, oriented. HEENT: Ocular movements conjugate. Oral cavity is normal. A little bit of stiffness in the posteri or neck area. CARDIAC: S1, S2, regular rate. ABDOMEN: Soft. LUNGS: Symmetric, clear breath sounds. GENITAL: Normal. EXTREMITIES: Better range of motion right knee. Right shoulder still stiff. Moves extremities othe rwise okay. NEUROLOGIC: Cognitive function intact. LABORATORY DATA: White cell count down to 6.2, hemoglobin 10.4, platelets 137. Sodium 139, creatini ne 0.97. Microbiology with Clostridium perfringens from all the samples. We have a preliminary resu lt but no growth for 24 hours. The abdominal sample shows many gram-negative rods and moderate gram- positive rods. He is currently on vancomycin and meropenem. ASSESSMENT: Coronary artery disease, prostatectomy with what appears to be a seroma on the left side with colonization by Clostridium and may be a gram-negative [place], we then extension of the clostridia l infection towards the joints with bacteremia. The C-spine area appears not to be involved by infla mmatory process at least according to the C-spine MRI, which was contrast study. We will continue me ropenem alone, discontinue vancomycin, probably eventually transitioned to a more focused antimicrobi al regimen. PICC line placement. He may need more thorough washout of the right knee and right shou lder. We will discuss with Dr. Barba.
[2018-01-27] MEDS: Acetaminophen 325 MG TAB PO PRN (00:30)
[2018-01-27] MEDS: tiZANidine HCl 4 MG TAB PO PRN (00:31)
[2018-01-27] MEDS: Morphine 4 MG/ML VIAL SLOW IVP PRN ×5 (02:32→23:22)
[2018-01-27] MEDS: Ketorolac Tromethamine 30 MG/ML VIAL IVP PRN (03:44)
[2018-01-27] MEDS: Sodium Chloride 0.9% 1,000 ML IV SCH (05:39)
[2018-01-27] MEDS: MEROPENEM 1 GM/50 ML 1 GM in Premix Bag 1 BAG IVPB SCH ×3 (05:39→21:08)
[2018-01-27] MEDS: Levothyroxine Sodium 75 MCG TAB PO SCH (05:41)
[2018-01-27] MEDS: traMADol HCl 50 MG TAB PO PRN (05:45)
[2018-01-27] MEDS: Loratadine 10 MG TAB PO SCH (08:59)
[2018-01-27] MEDS: Heparin 5,000 UNITS/ML VIAL SC SCH ×3 (08:59→19:54)
[2018-01-27] MEDS: Tamsulosin HCl 0.4 MG CAP PO SCH (08:59)
[2018-01-27] MEDS: Potassium Chloride 20 MEQ TAB PO SCH (08:59)
[2018-01-27] MEDS: Docusate 100 MG CAP PO SCH ×2 (08:59→19:54)
[2018-01-27] MEDS: Citalopram 10 MG TAB PO SCH (08:59)
--- NOTE | 2018-01-27 11:02 | PDOC.PN ---
- Subjective Encounter Start Date: 01/27/18 Encounter Start Time: 07:50 Subjective: no new complaints -: neck is better, no sob - Objective MAR Reviewed: Yes Vital Signs & Weight: Vital Signs (12 hours) Temp Pulse Resp BP Pulse Ox 01/27/18 08:00 98.2 F 74 16 153/90 H 94 L 01/27/18 04:49 98.4 F 75 18 148/85 H 93 L 01/27/18 00:00 99.3 F 78 18 144/80 H 94 L I&O: 01/26/18 01/27/18 01/28/18 06:59 06:59 06:59 Intake Total 2515 3151 Output Total 130 400 Balance 2385 2751 Result Diagrams: 01/25/18 04:50 01/25/18 04:50 Phys Exam - Physical Examination HEENT: PERRLA, moist MMs Neck: no JVD, supple Respiratory: no wheezing, no rales Cardiovascular: RRR, no significant murmur Gastrointestinal: soft, non-tender, positive bowel sounds Musculoskeletal: pulses present has drain in right shoulder and knee Neurological: non-focal, moves all 4 limbs Psychiatric: normal affect, A&O x 3 Dx/Plan (1) Septic arthritis Status: Acute Qualifiers: Septic arthritis location: multiple locations Comment: right shoulder, knee and likely right hip as well (2) Sepsis Code(s): A41.9 - SEPSIS, UNSPECIFIED ORGANISM Status: Acute Comment: clostridium perfringens (3) Bacteremia Code(s): R78.81 - BACTEREMIA Status: Acute Comment: c.perfringens (4) CAD (coronary artery disease) Code(s): I25.10 - ATHSCL HEART DISEASE OF [place] CORONARY ARTERY W/O ANG PCTRS Status: Chronic Qualifiers: Coronary Disease-Associated Artery/Lesion type: [place] artery [place] vs. transplanted heart: [place] heart Associated angina: without angina Qualified Code(s): I25.10 - Atherosclerotic heart disease of [place] coronary artery without angina pectoris (5) HTN (hypertension) Code(s): I10 - ESSENTIAL (PRIMARY) HYPERTENSION Status: Chronic Qualifiers: Hypertension type: essential hypertension Qualified Code(s): I10 - Essential (primary) hypertension (6) Dyslipidemia Code(s): E78.5 - HYPERLIPIDEMIA, UNSPECIFIED Status: Chronic (7) H/O prostatectomy Code(s): Z90.79 - ACQUIRED ABSENCE OF OTHER GENITAL ORGAN(S) Status: Chronic Comment: in sep (8) Hypothyroidism Code(s): E03.9 - HYPOTHYROIDISM, UNSPECIFIED Status: Chronic Qualifiers: Hypothyroidism type: unspecified Qualified Code(s): E03.9 - Hypothyroidism , unspecified - Plan is on meropenem -: dc iv fluids -: await full culture results, anaerobe will take time -: for picc line, may need repeat debridement due to organsim growing -: on toradol, morphine and norco prn * . Review of Systems - Medications/Allergies Allergies/Adverse Reactions: Allergies Allergy/AdvReac Type Severity Reaction Status Date / Time niacin Allergy Unknown Verified 06/24/13 14:05 Medications: Current Medications Acetaminophen (Tylenol) 650 mg PO Q4H PRN PRN Reason: Headache/Fever or Pain Last Admin: 01/27/18 00:30 Dose: 650 mg Hydrocodone Bitart/Acetaminophen ([place] 7.5/325) 1 tab PO Q6H PRN PRN Reason: Pain Citalopram Hydrobromide (Celexa) 10 mg PO DAILY [facility] Last Admin: 01/27/18 08:59 Dose: 10 mg Docusate Sodium (Colace) 100 mg PO BID [facility] Last Admin: 01/27/18 08:59 Dose: 100 mg Heparin Sodium (Porcine) (Heparin) 5,000 units SC TID [facility] Last Admin: 01/27/18 08:59 Dose: 5,000 units Meropenem 1 gm/ Device 50 mls @ 100 mls/hr IVPB Q8HR [facility] Last Admin: 01/27/18 05:39 Dose: 50 mls Ketorolac Tromethamine (Toradol) 15 mg IVP Q6H PRN PRN Reason: Pain Stop: 01/29/18 12:14 Last Admin: 01/27/18 03:44 Dose: 15 mg Lactulose (Lactulose) 20 gm PO DAILYPRN PRN PRN Reason: Constipation Levothyroxine Sodium (Synthroid) 75 mcg PO 0600 [facility] Last Admin: 01/27/18 05:41 Dose: 75 mcg Loratadine (Claritin) 10 mg PO DAILY [facility] Last Admin: 01/27/18 08:59 Dose: 10 mg Magnesium Hydroxide (Milk Of Magnesium) 30 ml PO DAILYPRN PRN PRN Reason: Constipation Mirabegron (Myrbetriq Er) 25 mg PO DAILY [facility] Last Admin: 01/27/18 09:00 Dose: 25 mg Miscellaneous Medication (Pharmacy To Dose) 1 each IVPB PRN PRN PRN Reason: Pharmacy to dose Morphine Sulfate (Morphine) 4 mg SLOW IVP Q3H PRN PRN Reason: Chest Pain/BP Elevations Last Admin: 01/27/18 09:00 Dose: 4 mg Nitroglycerin (Nitrostat) 0.4 mg SL PRN PRN PRN Reason: Chest Pain Olmesartan (Benicar) 40 mg PO DAILY [facility] Last Admin: 01/27/18 08:59 Dose: 40 mg Ondansetron HCl (Zofran Odt) 4 mg PO Q6H PRN PRN Reason: Nausea/Vomiting Ondansetron HCl (Zofran) 4 mg IVP Q6H PRN PRN Reason: Nausea/Vomiting Pantoprazole Sodium (Protonix) 40 mg PO DAILY [facility] Last Admin: 01/27/18 08:59 Dose: 40 mg Potassium Chloride (K-Dur) 20 meq PO DAILY [facility] Last Admin: 01/27/18 08:59 Dose: 20 meq Sodium Chloride (Flush - Normal Saline) 10 ml IVF Q12HR [facility] Last Admin: 01/27/18 09:00 Dose: 10 ml Sodium Chloride (Flush - Normal Saline) 10 ml IVF PRN PRN PRN Reason: Saline Flush Tamsulosin HCl (Flomax) 0.4 mg PO DAILY [facility] Last Admin: 01/27/18 08:59 Dose: 0.4 mg Tizanidine HCl (Zanaflex) 2 mg PO Q4H PRN PRN Reason: Muscle Spasm Last Admin: 01/27/18 00:31 Dose: 2 mg Tramadol HCl (Ultram) 50 mg PO Q6H PRN PRN Reason: Moderate Pain (4-6) Last Admin: 01/27/18 05:45 Dose: 50 mg
[2018-01-27] MEDS: HYDROcodone/Acetaminophen 7.5/325 mg Tablet PO PRN ×2 (11:59→21:15)
--- NOTE | 2018-01-27 16:51 | PRG ---
DATE OF SERVICE: 01/27/2018 SUBJECTIVE: Mr. Palmer is still with quite a bit of headaches and neck pain, particularly the inse rtion of the posterior neck muscles into the occipital area. The joints are improving. He has no re spiratory symptoms, no abdominal pain or diarrhea. OBJECTIVE: VITAL SIGNS: His temperature is normalized. BP 160/70, pulse 89. GENERAL: Appears in some distress from his neck pain. HEENT: Ocular movements conjugate. There is quite a bit of tenderness in the basilar skull region a t the insertion of the muscles and this is quite symmetric right and left side. LUNGS: Clear. HEART: S1, S2, regular rate. ABDOMEN: Soft with some mild to moderate tenderness in the left lower quadrant. MUSCULOSKELETAL: All the drains have been removed from the joints. Range of motion is still limited in the right shoulder and right knee. The right hip is better. Pulses 1+ dorsalis pedis. NEUROLOGIC: He is awake, oriented, follows commands. LABORATORY DATA: White cell count down to 6.2, hemoglobin 10.4, platelets 137. Sodium 139, creatini ne 0.97, albumin down to 2.8. The microbiology as noted before. There is a stool for C. diff which was negative. The abdominal drain has been removed. Cervical spine MRI did not show any areas of sp ine inflammatory change noticeable. ASSESSMENT: Coronary artery disease with recent prostatectomy and what appears to be a seroma in the left side colonization by Clostridium and then bacteremia with multiple sites of involvement, partic ularly joints. There is a concern in the C-spine area, more at the junction with the occiput and I d o not think that area was included in the MRI. He also was having headaches. There have been a few cases of meningitis reported, although that is a rare secondary to Clostridium species. We will orde r an MRI of the brain with contrast. Discussed with Dr. Barba and will just hope that the washou t performed will be sufficient to clear this infection in the joints without having to do any more ra dical procedures. Waiting on the final results of the abdominal abscess culture to define long-term antimicrobial therapy. I believe the abdominal organisms, is going to milk route deliverer to be the same I want to retrieve from the blood and samples from the joints.
--- NOTE | 2018-01-27 16:58 | MRI ---
MRI BRAIN WITH AND WITHOUT GADOLINIUM CONTRAST: HISTORY: Sepsis. TIA. COMPARISON: Noncontrast study from 01/24/18. FINDINGS: There is no evidence of acute intracranial hemorrhage or infarct. The ventricles appear normal in si ze, shape, and position. There is no mass effect, shift of midline structures, or abnormal areas of contrast enhancement. Minimal mucosal thickening within the ethmoid air cells and right maxillary si nus and right mastoid air cells. IMPRESSION: No acute intracranial abnormalities are demonstrated. POS: [facility]
--- NOTE | 2018-01-27 17:02 | PRG ---
DATE OF SERVICE: 01/27/2018 SUBJECTIVE: Mr. Trotter is a 72-year-old man who was admitted with a poorly septic arthritis. Right lower quadrant pelvic fluid was percutaneously drained. Microbiology is consistent for many gram neg ative rods as well as moderate gram positive rods. Final identification is pending. The patient is currently on broad spectrum antibiotics and managed by Infectious Disease. The patient reports no ab dominal pain today. The percutaneous drainage catheter is examined and it has been in place and has no output since yesterday. The patient has no abdominal tenderness to palpation. The drainage keisha ter was removed without incident and dressing applied here. General Surgery will sign off this patie nt's care at this time and be available to reevaluate the patient on demand. Medical management to ke coppola continued per his primary care service as well as Infectious Disease.
[2018-01-27] MEDS ORDERED: Metoprolol Tartrate 50 MG TAB PO SCH (20:00)
[2018-01-28] MEDS: Morphine 4 MG/ML VIAL SLOW IVP PRN ×3 (03:52→20:22)
[2018-01-28] MEDS: Levothyroxine Sodium 75 MCG TAB PO SCH (06:26)
[2018-01-28] MEDS: HYDROcodone/Acetaminophen 7.5/325 mg Tablet PO PRN ×3 (06:27→22:14)
[2018-01-28] MEDS: MEROPENEM 1 GM/50 ML 1 GM in Premix Bag 1 BAG IVPB SCH ×3 (06:28→20:16)
[2018-01-28 08:26] LABS: ALT (SGPT) 8 U/L (8-55); AST (SGOT) 19 U/L (5-34); Albumin 2.7 g/dL (3.4-4.8); Alkaline Phosphatase 98 U/L (40-150); Anion Gap 11 mmol/L (10-20); BUN (Urea Nitrogen) 15 mg/dL (8.4-25.7); Bilirubin, Total 0.7 mg/dL (0.2-1.2); Calc. Creatinine Clearance 120 mL/min (70-130); Calcium 8.2 mg/dL (7.8-10.44); Carbon Dioxide 22 mmol/L (23-31); Chloride 107 mmol/L (98-107); Estimated GFR-MDRD Greater than 90; Glucose 98 mg/dL (83-110); Potassium 3.7 mmol/L (3.5-5.1); Protein, Total 4.7 g/dL (5.8-8.1); Sodium 136 mmol/L (136-145)
[2018-01-28 08:39] LABS: #Eosinphils 0.1 thou/uL (0.0-0.7); #Lymphocytes 0.5 thou/uL (1.20-3.40); #Monocytes 0.8 thou/uL (0.11-0.59); #Neutrophils 5.5 thou/uL (1.40-6.50); %Basophils 0.1 % (0.0-1.0); %Eosinophils 1.2 % (0.0-10.0); %Lymphocytes 7.1 % (21.0-51.0); %Monocytes 10.9 % (0.0-10.0); %Neutrophils 80.7 % (42.0-75.0); Hemoglobin 10.5 g/dL (14.0-18.0); Mean Corpuscular Hemoglobin 28.1 pg (27.0-31.0); Mean Corpuscular Volume 85.3 fl (80.0-94.0); Mean Platelet Volume 7.8 fL (7.4-10.4); Platelet Count 158 thou/uL (130-400); RBC Distribution Width 12.6 % (11.5-14.5); Red Blood Cell (RBC) Count 3.74 mill/uL (4.70-6.10); White Blood Cell (WBC) Count 6.9 thou/uL (4.8-10.8)
[2018-01-28] MEDS: Citalopram 10 MG TAB PO SCH (11:01)
--- NOTE | 2018-01-28 11:37 | RAD ---
TWO VIEWS RIGHT HIP: Date: 01-28-18 History: Right hip prosthesis. Evaluate for gas formation. Comparison: 01-23-18 FINDINGS: Again noted is a right total hip prosthesis. Heterotopic ossification seen adjacent to the right hip. There is no fracture or dislocation identified. There is mild subcutaneous edema in the right latera l gluteal region, but no definitive subcutaneous emphysema is seen. IMPRESSION: 1. Right total hip prosthesis without hardware complication. 2. Subcutaneous edema in the right lateral gluteal region. No obvious subcutaneous emphysema is seen. POS: [facility]
[2018-01-28] MEDS: Heparin 5,000 UNITS/ML VIAL SC SCH ×3 (13:09→20:16)
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
[2018-01-28] MEDS: Loratadine 10 MG TAB PO SCH (17:32)
[2018-01-28] MEDS: Docusate 100 MG CAP PO SCH ×2 (17:32→20:15)
[2018-01-28] MEDS: Tamsulosin HCl 0.4 MG CAP PO SCH (17:32)
[2018-01-28] MEDS: Potassium Chloride 20 MEQ TAB PO SCH (17:32)
--- NOTE | 2018-01-28 18:25 | PDOC.PN ---
- Subjective Encounter Start Date: 01/28/18 Encounter Start Time: 07:40 Subjective: feels better, pain is better now -: no sob, eating well, no fever - Objective MAR Reviewed: Yes Vital Signs & Weight: Vital Signs (12 hours) Temp Pulse Resp BP Pulse Ox 01/28/18 08:00 98.1 F 73 16 94 L 01/28/18 07:58 98.1 F 73 16 148/76 H 94 L I&O: 01/27/18 01/28/18 01/29/18 06:59 06:59 06:59 Intake Total 3151 1486 Output Total 400 Balance 2751 1486 Result Diagrams: 01/28/18 07:35 01/28/18 07:35 Phys Exam - Physical Examination HEENT: PERRLA, moist MMs Neck: no JVD, supple Respiratory: no wheezing, no rales Cardiovascular: RRR, no significant murmur Gastrointestinal: soft, non-tender, no distention, positive bowel sounds Musculoskeletal: pulses present right shoulder and knee are in dressing Neurological: non-focal, moves all 4 limbs Psychiatric: normal affect, A&O x 3 Dx/Plan (1) Septic arthritis Status: Acute Qualifiers: Septic arthritis location: multiple locations Comment: right shoulder, knee and likely right hip as well (2) Sepsis Code(s): A41.9 - SEPSIS, UNSPECIFIED ORGANISM Status: Acute Comment: clostridium perfringens (3) Bacteremia Code(s): R78.81 - BACTEREMIA Status: Acute Comment: c.perfringens (4) CAD (coronary artery disease) Code(s): I25.10 - ATHSCL HEART DISEASE OF [place] CORONARY ARTERY W/O ANG PCTRS Status: Chronic Qualifiers: Coronary Disease-Associated Artery/Lesion type: [place] artery [place] vs. transplanted heart: [place] heart Associated angina: without angina Qualified Code(s): I25.10 - Atherosclerotic heart disease of [place] coronary artery without angina pectoris (5) HTN (hypertension) Code(s): I10 - ESSENTIAL (PRIMARY) HYPERTENSION Status: Chronic Qualifiers: Hypertension type: essential hypertension Qualified Code(s): I10 - Essential (primary) hypertension (6) Dyslipidemia Code(s): E78.5 - HYPERLIPIDEMIA, UNSPECIFIED Status: Chronic (7) H/O prostatectomy Code(s): Z90.79 - ACQUIRED ABSENCE OF OTHER GENITAL ORGAN(S) Status: Chronic Comment: in sep (8) Hypothyroidism Code(s): E03.9 - HYPOTHYROIDISM, UNSPECIFIED Status: Chronic Qualifiers: Hypothyroidism type: unspecified Qualified Code(s): E03.9 - Hypothyroidism , unspecified - Plan Will likely go for removal of prosthesis from right shoulder and knee in am -: hyperbaric therapy if condition worsons/ID/Ortho advice -: is on meropenem -: clinically is getting better -: will add lopressor for htn (likely elevated from pain) * . is on morphine, ultram, norco and zanaflex prn Awaiting full culture results, then picc line if needed. Review of Systems - Medications/Allergies Allergies/Adverse Reactions: Allergies Allergy/AdvReac Type Severity Reaction Status Date / Time niacin Allergy Unknown Verified 06/24/13 14:05 Medications: Current Medications Acetaminophen (Tylenol) 650 mg PO Q4H PRN PRN Reason: Headache/Fever or Pain Last Admin: 01/27/18 00:30 Dose: 650 mg Hydrocodone Bitart/Acetaminophen ([place] 7.5/325) 1 tab PO Q6H PRN PRN Reason: Mild-Moderate Pain (1-5) Last Admin: 01/27/18 21:15 Dose: 1 tab Hydrocodone Bitart/Acetaminophen ([place] 7.5/325) 2 tab PO Q6H PRN PRN Reason: Moderate to Severe Pain (6-10) Last Admin: 01/28/18 16:09 Dose: 2 tab Citalopram Hydrobromide (Celexa) 10 mg PO DAILY [facility] Last Admin: 01/28/18 11:01 Dose: 10 mg Docusate Sodium (Colace) 100 mg PO BID [facility] Last Admin: 01/28/18 17:32 Dose: 100 mg Heparin Sodium (Porcine) (Heparin) 5,000 units SC TID [facility] Last Admin: 01/28/18 14:59 Dose: Not Given Meropenem 1 gm/ Device 50 mls @ 100 mls/hr IVPB Q8HR [facility] Last Admin: 01/28/18 14:47 Dose: 50 mls Lactulose (Lactulose) 20 gm PO DAILYPRN PRN PRN Reason: Constipation Levothyroxine Sodium (Synthroid) 75 mcg PO 0600 [facility] Last Admin: 04/27/18 06:26 Dose: 75 mcg Loratadine (Claritin) 10 mg PO DAILY [facility] Last Admin: 01/28/18 17:32 Dose: 10 mg Magnesium Hydroxide (Milk Of Magnesium) 30 ml PO DAILYPRN PRN PRN Reason: Constipation Mirabegron (Myrbetriq Er) 25 mg PO DAILY [facility] Last Admin: 01/28/18 17:32 Dose: 25 mg Miscellaneous Medication (Pharmacy To Dose) 1 each IVPB PRN PRN PRN Reason: Pharmacy to dose Morphine Sulfate (Morphine) 4 mg SLOW IVP Q3H PRN PRN Reason: Chest Pain/BP Elevations Last Admin: 01/28/18 12:18 Dose: 4 mg Nitroglycerin (Nitrostat) 0.4 mg SL PRN PRN PRN Reason: Chest Pain Olmesartan (Benicar) 40 mg PO DAILY [facility] Last Admin: 01/28/18 11:02 Dose: 40 mg Ondansetron HCl (Zofran Odt) 4 mg PO Q6H PRN PRN Reason: Nausea/Vomiting Ondansetron HCl (Zofran) 4 mg IVP Q6H PRN PRN Reason: Nausea/Vomiting Pantoprazole Sodium (Protonix) 40 mg PO DAILY [facility] Last Admin: 01/28/18 17:32 Dose: 40 mg Potassium Chloride (K-Dur) 20 meq PO DAILY [facility] Last Admin: 01/28/18 17:32 Dose: 20 meq Sodium Chloride (Flush - Normal Saline) 10 ml IVF Q12HR [facility] Last Admin: 01/28/18 17:33 Dose: 10 ml Sodium Chloride (Flush - Normal Saline) 10 ml IVF PRN PRN PRN Reason: Saline Flush Tamsulosin HCl (Flomax) 0.4 mg PO DAILY [facility] Last Admin: 01/28/18 17:32 Dose: 0.4 mg Tizanidine HCl (Zanaflex) 2 mg PO Q4H PRN PRN Reason: Muscle Spasm Last Admin: 01/27/18 00:31 Dose: 2 mg Tramadol HCl (Ultram) 50 mg PO Q6H PRN PRN Reason: Moderate Pain (4-6) Last Admin: 01/27/18 05:45 Dose: 50 mg
[2018-01-28] MEDS: Metoprolol Tartrate 50 MG TAB PO SCH (20:16)
[2018-01-28] MEDS: Calcium Carbonate 500 MG ChewTAB PO PRN (20:39)
--- NOTE | 2018-01-28 22:29 | CON ---
DATE OF CONSULTATION: 01/28/2018 HISTORY OF PRESENT ILLNESS: Mr. Sly Palmer is a 72-year-old male with right knee and right shoulder prosthetic septic arthritis. The patient is currently status post incision and drainage. The patient continued to have a draining wound from his abdomen. The patient is planned tentatively for a revision of total knee with extraction of his right total shoulder with pending clearance of the abdomen before proceeding. I could plan to proceed this next with Dr. Jose. The patient is planned for an I&D and recommended fusion with drain with placement of antibiotic beads. The patient will be rescheduled tomorrow morning for repeat washout given the patient's stable status and difficulty with multiple more acute wounds. We will plan on performing the procedure I&D in the morning, so patient made n.p.o. at midnight. I discussed him with the risks and benefits and his right shoulder likely needed to be resected and we will have to do an antibiotic spacer over potentially single stage versus two stage in his right knee. BENNY
[2018-01-29] MEDS: Levothyroxine Sodium 75 MCG TAB PO SCH (04:50)
[2018-01-29] MEDS: MEROPENEM 1 GM/50 ML 1 GM in Premix Bag 1 BAG IVPB SCH ×3 (05:44→20:51)
[2018-01-29] MEDS ORDERED: Neomycin-Polymyxin 1 ML AMP ONE (06:56)
[2018-01-29] MEDS: Citalopram 10 MG TAB PO SCH ×2 (07:42→11:11)
[2018-01-29] MEDS: Amlodipine 10 MG TAB PO SCH ×2 (07:42→11:10)
[2018-01-29] MEDS: Atorvastatin Calcium 40 MG TAB PO SCH ×2 (07:42→11:11)
[2018-01-29] MEDS: Metoprolol Tartrate 50 MG TAB PO SCH ×2 (07:43→20:50)
[2018-01-29] MEDS: Docusate 100 MG CAP PO SCH ×2 (07:43→20:50)
[2018-01-29] MEDS: Heparin 5,000 UNITS/ML VIAL SC SCH ×3 (07:43→20:50)
[2018-01-29] MEDS: Loratadine 10 MG TAB PO SCH ×2 (07:43→11:11)
[2018-01-29] MEDS: Potassium Chloride 20 MEQ TAB PO SCH ×2 (07:44→11:11)
[2018-01-29] MEDS ORDERED: Fentanyl 100 MCG/2 ML VIAL ONE ×2 (07:44→09:57)
[2018-01-29] MEDS ORDERED: Ondansetron HCl/PF 4 MG/2 ML Vial ONE ×2 (07:44→16:38)
[2018-01-29] MEDS: Tamsulosin HCl 0.4 MG CAP PO SCH ×2 (07:44→11:11)
[2018-01-29] MEDS ORDERED: Famotidine/PF 20 mg/2ml Vial ONE (08:03)
[2018-01-29] MEDS ORDERED: Tobramycin Sulfate 1.2 GM VIAL ONE (08:13)
[2018-01-29] MEDS ORDERED: ATORVASTATIN PO SCH (09:00)
[2018-01-29] MEDS ORDERED: [UNRECOGNIZED DRUG - OTHER] PO SCH (09:00)
[2018-01-29] MEDS ORDERED: AMLODIPINE PO SCH (09:00)
[2018-01-29] MEDS ORDERED: Ondansetron HCl/PF 4 MG/2 ML Vial IVP PRN (09:27)
[2018-01-29] MEDS ORDERED: Acetaminophen 1,000 MG in Premix Bag 1 BAG IVPB PRN (09:28)
--- NOTE | 2018-01-29 11:00 | PDOC.PN ---
- Subjective Encounter Start Date: 01/29/18 Encounter Start Time: 07:15 Subjective: is going for repeat debridement this am -: no sob, feels better - Objective MAR Reviewed: Yes Vital Signs & Weight: Vital Signs (12 hours) Temp Pulse Resp BP 01/29/18 05:10 98.3 F 70 18 161/92 H 01/29/18 00:02 97.9 F 80 18 157/78 H I&O: 01/28/18 01/29/18 01/30/18 06:59 06:59 06:59 Intake Total 1486 Balance 1486 Result Diagrams: 01/28/18 07:35 01/28/18 07:35 Phys Exam - Physical Examination HEENT: PERRLA, moist MMs Neck: no JVD, supple Respiratory: no wheezing, no rales Cardiovascular: RRR, no significant murmur Gastrointestinal: soft, non-tender, positive bowel sounds Musculoskeletal: no edema, pulses present Neurological: non-focal, moves all 4 limbs Psychiatric: A&O x 3 Dx/Plan (1) Septic arthritis Status: Acute Qualifiers: Septic arthritis location: multiple locations Comment: right shoulder, knee and likely right hip as well (2) Sepsis Code(s): A41.9 - SEPSIS, UNSPECIFIED ORGANISM Status: Acute Comment: clostridium perfringens (3) Bacteremia Code(s): R78.81 - BACTEREMIA Status: Acute Comment: c.perfringens (4) CAD (coronary artery disease) Code(s): I25.10 - ATHSCL HEART DISEASE OF [place] CORONARY ARTERY W/O ANG PCTRS Status: Chronic Qualifiers: Coronary Disease-Associated Artery/Lesion type: [place] artery [place] vs. transplanted heart: [place] heart Associated angina: without angina Qualified Code(s): I25.10 - Atherosclerotic heart disease of [place] coronary artery without angina pectoris (5) HTN (hypertension) Code(s): I10 - ESSENTIAL (PRIMARY) HYPERTENSION Status: Chronic Qualifiers: Hypertension type: essential hypertension Qualified Code(s): I10 - Essential (primary) hypertension (6) Dyslipidemia Code(s): E78.5 - HYPERLIPIDEMIA, UNSPECIFIED Status: Chronic (7) H/O prostatectomy Code(s): Z90.79 - ACQUIRED ABSENCE OF OTHER GENITAL ORGAN(S) Status: Chronic Comment: in sep (8) Hypothyroidism Code(s): E03.9 - HYPOTHYROIDISM, UNSPECIFIED Status: Chronic Qualifiers: Hypothyroidism type: unspecified Qualified Code(s): E03.9 - Hypothyroidism , unspecified - Plan for repeat wash out today -: on meropenem, norvasc, lopressor and lipitor -: cultures are pending -: clinically improving, morphine, norco and tizanidine prn -: will likely go for removal of hardware on per ortho * . Review of Systems - Medications/Allergies Allergies/Adverse Reactions: Allergies Allergy/AdvReac Type Severity Reaction Status Date / Time niacin Allergy Unknown Verified 06/24/13 14:05 Medications: Current Medications Acetaminophen (Tylenol) 650 mg PO Q4H PRN PRN Reason: Headache/Fever or Pain Last Admin: 01/27/18 00:30 Dose: 650 mg Hydrocodone Bitart/Acetaminophen ([place] 7.5/325) 1 tab PO Q6H PRN PRN Reason: Mild-Moderate Pain (1-5) Last Admin: 01/27/18 21:15 Dose: 1 tab Hydrocodone Bitart/Acetaminophen ([place] 7.5/325) 2 tab PO Q6H PRN PRN Reason: Moderate to Severe Pain (6-10) Last Admin: 01/28/18 22:14 Dose: 2 tab Amlodipine Besylate (Norvasc) 10 mg PO DAILY [facility] Atorvastatin Calcium (Lipitor) 40 mg PO DAILY [facility] Calcium Carbonate (Tums) 1,000 mg PO Q4H PRN PRN Reason: INDIGESTION Last Admin: 01/28/18 20:39 Dose: 1,000 mg Citalopram Hydrobromide (Celexa) 10 mg PO DAILY [facility] Last Admin: 01/28/18 11:01 Dose: 10 mg Docusate Sodium (Colace) 100 mg PO BID [facility] Last Admin: 01/29/18 07:43 Dose: Not Given Fentanyl (Pacu-Sublimaze) 50 mcg SLOW IVP Q10MIN PRN PRN Reason: Moderate to Severe Pain (6-10) Stop: 01/29/18 12:28 Heparin Sodium (Porcine) (Heparin) 5,000 units SC TID [facility] Last Admin: 01/29/18 07:43 Dose: Not Given Meropenem 1 gm/ Device 50 mls @ 100 mls/hr IVPB Q8HR [facility] Last Admin: 01/29/18 05:44 Dose: 50 mls Acetaminophen 1,000 mg/ Device 100 mls @ 400 mls/hr IVPB Q6H PRN PRN Reason: Fever/Mild Pain Stop: 01/30/18 09:29 Lactulose (Lactulose) 20 gm PO DAILYPRN PRN PRN Reason: Constipation Levothyroxine Sodium (Synthroid) 75 mcg PO 0600 [facility] Last Admin: 01/29/18 04:50 Dose: Not Given Loratadine (Claritin) 10 mg PO DAILY [facility] Last Admin: 01/28/18 17:32 Dose: 10 mg Magnesium Hydroxide (Milk Of Magnesium) 30 ml PO DAILYPRN PRN PRN Reason: Constipation Metoprolol Tartrate (Lopressor) 50 mg PO BID [facility] Last Admin: 01/29/18 07:43 Dose: Not Given Mirabegron (Myrbetriq Er) 25 mg PO DAILY [facility] Last Admin: 01/28/18 17:32 Dose: 25 mg Morphine Sulfate (Morphine) 4 mg SLOW IVP Q3H PRN PRN Reason: Chest Pain/BP Elevations Last Admin: 01/28/18 20:22 Dose: 4 mg Morphine Sulfate (Pacu-Morphine Sulfate) 4 mg SLOW IVP ONE PRN PRN Reason: Moderate to Severe Pain (6-10) Stop: 01/29/18 12:27 Nitroglycerin (Nitrostat) 0.4 mg SL PRN PRN PRN Reason: Chest Pain Olmesartan (Benicar) 40 mg PO DAILY [facility] Last Admin: 01/28/18 11:02 Dose: 40 mg Ondansetron HCl (Zofran Odt) 4 mg PO Q6H PRN PRN Reason: Nausea/Vomiting Ondansetron HCl (Zofran) 4 mg IVP Q6H PRN PRN Reason: Nausea/Vomiting Ondansetron HCl (Pacu-Zofran) 4 mg IVP ONE PRN PRN Reason: Nausea/Vomiting Stop: 01/29/18 12:27 Pantoprazole Sodium (Protonix) 40 mg PO DAILY [facility] Last Admin: 01/28/18 17:32 Dose: 40 mg Potassium Chloride (K-Dur) 20 meq PO DAILY [facility] Last Admin: 01/28/18 17:32 Dose: 20 meq Sodium Chloride (Flush - Normal Saline) 10 ml IVF Q12HR [facility] Last Admin: 01/29/18 07:44 Dose: Not Given Sodium Chloride (Flush - Normal Saline) 10 ml IVF PRN PRN PRN Reason: Saline Flush Tamsulosin HCl (Flomax) 0.4 mg PO DAILY [facility] Last Admin: 01/28/18 17:32 Dose: 0.4 mg Tizanidine HCl (Zanaflex) 2 mg PO Q4H PRN PRN Reason: Muscle Spasm Last Admin: 01/27/18 00:31 Dose: 2 mg Tramadol HCl (Ultram) 50 mg PO Q6H PRN PRN Reason: Moderate Pain (4-6) Last Admin: 01/27/18 05:45 Dose: 50 mg
--- NOTE | 2018-01-29 11:04 | RAD ---
RIGHT SHOULDER RADIOGRAPHS 2 VIEWS: DATE: 01/29/18. PROVIDED CLINICAL HISTORY: Right shoulder pain. FINDINGS: Comparison 01/24/18. Changes of reverse right total shoulder arthroplasty are redemonstrated, without evidence for hardware loosening or migration. Amorphous foci of increased density are seen adjacent to the proximal aspect of the construct presumably reflecting antibiotic-impregnated material. Intr aarticular gas seen on the prior examination is no longer appreciated. No lytic bony changes are gay dent. IMPRESSION: Interval placement of antibiotic impregnated material with resolution of intraarticular gas. POS: [facility]
[2018-01-29] MEDS: Morphine 4 MG/ML VIAL SLOW IVP PRN ×2 (12:30→21:04)
[2018-01-29] MEDS ORDERED: Lidocaine 1% PF 5 ML VIAL ONE (16:38)
[2018-01-29] MEDS ORDERED: Dexamethasone 20 MG/5 ML VIAL ONE (16:38)
[2018-01-29] MEDS ORDERED: PROPOFOL 200 MG/20 ML VIAL ONE (16:38)
[2018-01-29] MEDS ORDERED: Succinylcholine Chloride 20 MG/ML 10 ml SYRINGE FS ONE (16:38)
--- NOTE | 2018-01-29 17:15 | OP ---
DATE OF PROCEDURE: 01/29/2018 PREOPERATIVE DIAGNOSES: 1. Right reverse total shoulder septic arthritis, infected right total shoulder arthroplasty. 2. 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 STAFF: Duke Ling M.D. ANESTHESIOLOGIST: Dr. Castaneda. BEAUTY CULTURIST APPRENTICE: Kyler Tay PA-C. PROCEDURES PERFORMED: 1. Incision and drainage right shoulder with antibiotic beads placement. 2. Incision and drainage right total knee arthroplasty with antibiotic beads placement. ANESTHESIA: The patient received general endotracheal intubation. ESTIMATED BLOOD LOSS: 100 mL TOURNIQUET TIME: None. IMPLANTS: We placed 4 antibiotic wafers within the knee. We placed 7 antibiotic beads on a string within the shoulder. Composition was 1 package of plain cement with 3 grams of vancomycin and 2.4 grams of tobramycin. EXPLANTS: None. COMPLICATIONS: None. HISTORY OF PRESENT ILLNESS: Mr. Palmer is a 72-year-old male who presented with abdominal pain as well as a right shoulder and right knee pain. The patient was noted to have septic joints of his right reverse shoulder arthroplasty and right knee arthroplasty performed by Dr. Rashid and Dr. Russell. The patient had an I&D earlier this week performed by my partners. This patient is planned for a revision, of next week. He has some reaccumulation of fluid. He is currently draining and has been followed by Dr. Varma. The patient is currently on meropenem and followed by ID. He is on scheduled meropenem, the patient was taken back for repeat washout of his right shoulder and his right knee. He does understood the risks and benefits of the surgery, pain, scar, bleeding, infection, damage to vital structures, decreased range of motion or strength, need for further surgeries. He understood and likely we performed a 1 stage versus 0 stage procedure for his right shoulder given its currently in a reverse. His right knee is likely going to undergo one stage versus 2 stage procedure. We have bought time, kind of allow for the abdomen to clear up. He understood the risks and benefits and elected to proceed. DESCRIPTION OF PROCEDURE: After timeout was performed, his right lower extremity as the operative site based on sight, consents, marking, we have prepped and draped the right knee and right shoulder at the same time. PROCEDURE #1: We removed our sutures, take down the Prolene sutures to expose the joint, we washed 5 liters of fluid at the joint, flexing and extending working on motion. We had already started and made 4 wafers, antibiotic cement made of tobramycin and vancomycin, which we placed within the joint. We then closed with 0 Prolene, #1 Prolene and then #2 nylon for the skin at the completion of the procedure. PROCEDURE #2: We then concurrently started separately with separate instruments. The shoulder removed, the sutures from the deltopectoral anterior and lateral had split down through skin, down to the tendon, washed out and I also saw just serous fluid also in the shoulder, washed fluid through. I placed 7 beads on a string to help and close the joint, closed with #1 Prolene and then closed the skin with 2-0 nylon. The patient will be admitted back to Medicine. The patient will be followed in- house. Plan will be for a stage revision of his shoulder and knee later this week by Dr. Jose. The patient understands that this is a complex problem and may be difficult to clear given the unique nature of the organism cultured. BENNY
[2018-01-29] MEDS: HYDROcodone/Acetaminophen 7.5/325 mg Tablet PO PRN ×2 (18:17→23:57)
[2018-01-29] MEDS: MAGNESIUM HYDROXIDE SSW SCH (23:09)
[2018-01-29] MEDS: [UNRECOGNIZED DRUG - OTHER] SSW SCH (23:09)
[2018-01-29] MEDS: ALUMINUM SSW SCH (23:09)
[2018-01-29] MEDS: DIPHENHYDRAMINE SSW SCH (23:09)
[2018-01-30] MEDS: Morphine 4 MG/ML VIAL SLOW IVP PRN ×2 (03:33→20:28)
[2018-01-30] MEDS: MEROPENEM 1 GM/50 ML 1 GM in Premix Bag 1 BAG IVPB SCH ×3 (05:30→20:29)
[2018-01-30] MEDS: [UNRECOGNIZED DRUG - OTHER] SSW SCH ×4 (05:31→23:05)
[2018-01-30] MEDS: DIPHENHYDRAMINE SSW SCH ×4 (05:31→23:05)
[2018-01-30] MEDS: Levothyroxine Sodium 75 MCG TAB PO SCH (05:31)
[2018-01-30] MEDS: MAGNESIUM HYDROXIDE SSW SCH ×4 (05:31→23:05)
[2018-01-30] MEDS: ALUMINUM SSW SCH ×4 (05:31→23:05)
[2018-01-30] MEDS: HYDROcodone/Acetaminophen 7.5/325 mg Tablet PO PRN ×4 (05:31→23:04)
[2018-01-30 08:19] LABS: #Eosinphils 0.1 thou/uL (0.0-0.7); #Monocytes 0.7 thou/uL (0.11-0.59); #Neutrophils 6.3 thou/uL (1.40-6.50); %Basophils 0.1 % (0.0-1.0); %Eosinophils 1.7 % (0.0-10.0); %Lymphocytes 12.4 % (21.0-51.0); %Monocytes 8.8 % (0.0-10.0); %Neutrophils 76.9 % (42.0-75.0); Hemoglobin 10.4 g/dL (14.0-18.0); Mean Corpuscular HGB CONC 32.4 g/dL (32.0-36.0); Mean Corpuscular Hemoglobin 27.4 pg (27.0-31.0); Mean Corpuscular Volume 84.5 fl (80.0-94.0); Mean Platelet Volume 6.9 fL (7.4-10.4); Platelet Count 316 thou/uL (130-400); RBC Distribution Width 12.8 % (11.5-14.5); Red Blood Cell (RBC) Count 3.79 mill/uL (4.70-6.10); White Blood Cell (WBC) Count 8.2 thou/uL (4.8-10.8)
[2018-01-30 08:27] LABS: ALT (SGPT) 9 U/L (8-55); AST (SGOT) 21 U/L (5-34); Albumin 2.6 g/dL (3.4-4.8); Alkaline Phosphatase 105 U/L (40-150); Anion Gap 7 mmol/L (10-20); BUN (Urea Nitrogen) 16 mg/dL (8.4-25.7); Bilirubin, Total 0.5 mg/dL (0.2-1.2); Calc. Creatinine Clearance 113 mL/min (70-130); Calcium 8.2 mg/dL (7.8-10.44); Carbon Dioxide 29 mmol/L (23-31); Chloride 105 mmol/L (98-107); Estimated GFR-MDRD Greater than 90; Globulin 2.1 g/dL (2.4-3.5); Glucose 116 mg/dL (83-110); Potassium 3.8 mmol/L (3.5-5.1); Protein, Total 4.7 g/dL (5.8-8.1); Sodium 137 mmol/L (136-145)
[2018-01-30] MEDS: Loratadine 10 MG TAB PO SCH (10:15)
[2018-01-30] MEDS: Citalopram 10 MG TAB PO SCH (10:15)
[2018-01-30] MEDS: Tamsulosin HCl 0.4 MG CAP PO SCH (10:15)
[2018-01-30] MEDS: Amlodipine 10 MG TAB PO SCH (10:15)
[2018-01-30] MEDS: Atorvastatin Calcium 40 MG TAB PO SCH (10:15)
[2018-01-30] MEDS: Docusate 100 MG CAP PO SCH ×2 (10:15→20:28)
[2018-01-30] MEDS: Potassium Chloride 20 MEQ TAB PO SCH (10:15)
[2018-01-30] MEDS: Metoprolol Tartrate 50 MG TAB PO SCH ×2 (10:15→20:28)
[2018-01-30] MEDS: Heparin 5,000 UNITS/ML VIAL SC SCH ×3 (10:15→20:29)
[2018-01-30] MEDS: diphenhydrAMINE 25 MG CAP PO PRN (11:18)
[2018-01-30] MEDS: traMADol HCl 50 MG TAB PO PRN (11:23)
--- NOTE | 2018-01-30 11:25 | PDOC.PN ---
- Subjective Encounter Start Date: 01/30/18 Encounter Start Time: 09:00 Subjective: feels better -: headache is better this morning - Objective MAR Reviewed: Yes Vital Signs & Weight: Vital Signs (12 hours) Temp Pulse Resp BP BP Pulse Ox 01/30/18 08:00 97.7 F 60 18 166/83 H 95 01/30/18 04:00 97.9 F 67 18 151/94 H 96 I&O: 01/29/18 01/30/18 01/31/18 06:59 06:59 06:59 Intake Total 580 Output Total 350 Balance 230 Result Diagrams: 01/30/18 07:58 01/30/18 07:58 Phys Exam - Physical Examination HEENT: PERRLA, moist MMs Neck: no JVD, supple Respiratory: no wheezing, no rales Cardiovascular: RRR, no significant murmur Gastrointestinal: soft, non-tender, positive bowel sounds lower abd edema+ Musculoskeletal: no edema, pulses present Neurological: non-focal, moves all 4 limbs Psychiatric: normal affect, A&O x 3 Dx/Plan (1) Septic arthritis Status: Acute Qualifiers: Septic arthritis location: multiple locations Comment: right shoulder, knee and likely right hip as well (2) Sepsis Code(s): A41.9 - SEPSIS, UNSPECIFIED ORGANISM Status: Acute Comment: clostridium perfringens (3) Bacteremia Code(s): R78.81 - BACTEREMIA Status: Acute Comment: c.perfringens (4) CAD (coronary artery disease) Code(s): I25.10 - ATHSCL HEART DISEASE OF [place] CORONARY ARTERY W/O ANG PCTRS Status: Chronic Qualifiers: Coronary Disease-Associated Artery/Lesion type: [place] artery [place] vs. transplanted heart: [place] heart Associated angina: without angina Qualified Code(s): I25.10 - Atherosclerotic heart disease of [place] coronary artery without angina pectoris (5) HTN (hypertension) Code(s): I10 - ESSENTIAL (PRIMARY) HYPERTENSION Status: Chronic Qualifiers: Hypertension type: essential hypertension Qualified Code(s): I10 - Essential (primary) hypertension (6) Dyslipidemia Code(s): E78.5 - HYPERLIPIDEMIA, UNSPECIFIED Status: Chronic (7) H/O prostatectomy Code(s): Z90.79 - ACQUIRED ABSENCE OF OTHER GENITAL ORGAN(S) Status: Chronic Comment: in dec of 2017 (8) Hypothyroidism Code(s): E03.9 - HYPOTHYROIDISM, UNSPECIFIED Status: Chronic Qualifiers: Hypothyroidism type: unspecified Qualified Code(s): E03.9 - Hypothyroidism , unspecified - Plan for picc line and lumbar puncture in am -: removal of hardware on per ortho service -: is on meropenem, d/w pt and at bedside -: culture sensitivity is still pending -: counselled to amb more, morphine, norco prn. * . Review of Systems - Medications/Allergies Allergies/Adverse Reactions: Allergies Allergy/AdvReac Type Severity Reaction Status Date / Time niacin Allergy Unknown Verified 06/24/13 14:05 Medications: Current Medications Acetaminophen (Tylenol) 650 mg PO Q4H PRN PRN Reason: Headache/Fever or Pain Last Admin: 01/27/18 00:30 Dose: 650 mg Hydrocodone Bitart/Acetaminophen ([place] 7.5/325) 1 tab PO Q6H PRN PRN Reason: Mild-Moderate Pain (1-5) Last Admin: 01/29/18 18:17 Dose: 1 tab Hydrocodone Bitart/Acetaminophen ([place] 7.5/325) 2 tab PO Q6H PRN PRN Reason: Moderate to Severe Pain (6-10) Last Admin: 01/30/18 10:16 Dose: 2 tab Amlodipine Besylate (Norvasc) 10 mg PO DAILY [facility] Last Admin: 01/30/18 10:15 Dose: 10 mg Atorvastatin Calcium (Lipitor) 40 mg PO DAILY [facility] Last Admin: 01/30/18 10:15 Dose: 40 mg Calcium Carbonate (Tums) 1,000 mg PO Q4H PRN PRN Reason: INDIGESTION Last Admin: 01/28/18 20:39 Dose: 1,000 mg Citalopram Hydrobromide (Celexa) 10 mg PO DAILY [facility] Last Admin: 01/30/18 10:15 Dose: 10 mg Al Hydroxide/Mg Hydroxide 20 ml/ Diphenhydramine HCl 50 mg/Lidocaine HCl 20 ml/ Nystatin 2,000,000 units 0 ml SSW Q6HR [facility] Stop: 01/31/18 18:01 Last Admin: 01/30/18 05:31 Dose: 10 ml Diphenhydramine HCl (Benadryl) 25 mg PO Q6H PRN PRN Reason: Itching & Insomnia Last Admin: 01/30/18 11:18 Dose: 25 mg Docusate Sodium (Colace) 100 mg PO BID [facility] Last Admin: 01/30/18 10:15 Dose: 100 mg Heparin Sodium (Porcine) (Heparin) 5,000 units SC TID [facility] Last Admin: 01/30/18 10:15 Dose: 5,000 units Meropenem 1 gm/ Device 50 mls @ 100 mls/hr IVPB Q8HR [facility] Last Admin: 01/30/18 05:30 Dose: 50 mls Lactulose (Lactulose) 20 gm PO DAILYPRN PRN PRN Reason: Constipation Levothyroxine Sodium (Synthroid) 75 mcg PO 0600 [facility] Last Admin: 01/30/18 05:31 Dose: 75 mcg Loratadine (Claritin) 10 mg PO DAILY [facility] Last Admin: 01/30/18 10:15 Dose: 10 mg Magnesium Hydroxide (Milk Of Magnesium) 30 ml PO DAILYPRN PRN PRN Reason: Constipation Metoprolol Tartrate (Lopressor) 50 mg PO BID [facility] Last Admin: 01/30/18 10:15 Dose: 50 mg Mirabegron (Myrbetriq Er) 25 mg PO DAILY [facility] Last Admin: 01/30/18 10:15 Dose: 25 mg Morphine Sulfate (Morphine) 4 mg SLOW IVP Q3H PRN PRN Reason: Chest Pain/BP Elevations Last Admin: 01/30/18 03:33 Dose: 4 mg Nitroglycerin (Nitrostat) 0.4 mg SL PRN PRN PRN Reason: Chest Pain Olmesartan (Benicar) 40 mg PO DAILY [facility] Last Admin: 01/30/18 10:15 Dose: 40 mg Ondansetron HCl (Zofran Odt) 4 mg PO Q6H PRN PRN Reason: Nausea/Vomiting Ondansetron HCl (Zofran) 4 mg IVP Q6H PRN PRN Reason: Nausea/Vomiting Pantoprazole Sodium (Protonix) 40 mg PO DAILY [facility] Last Admin: 01/30/18 10:15 Dose: 40 mg Potassium Chloride (K-Dur) 20 meq PO DAILY [facility] Last Admin: 01/30/18 10:15 Dose: 20 meq Sodium Chloride (Flush - Normal Saline) 10 ml IVF Q12HR [facility] Last Admin: 01/30/18 10:15 Dose: 10 ml Sodium Chloride (Flush - Normal Saline) 10 ml IVF PRN PRN PRN Reason: Saline Flush Tamsulosin HCl (Flomax) 0.4 mg PO DAILY [facility] Last Admin: 01/30/18 10:15 Dose: 0.4 mg Tizanidine HCl (Zanaflex) 2 mg PO Q4H PRN PRN Reason: Muscle Spasm Last Admin: 01/27/18 00:31 Dose: 2 mg Tramadol HCl (Ultram) 50 mg PO Q6H PRN PRN Reason: Moderate Pain (4-6) Last Admin: 01/30/18 11:23 Dose: 50 mg
[2018-01-31] MEDS: Morphine 4 MG/ML VIAL SLOW IVP PRN (02:05)
[2018-01-31 04:57] LABS: #Eosinphils 0.2 thou/uL (0.0-0.7); #Lymphocytes 0.9 thou/uL (1.20-3.40); #Monocytes 0.7 thou/uL (0.11-0.59); #Neutrophils 6.4 thou/uL (1.40-6.50); %Basophils 0.2 % (0.0-1.0); %Eosinophils 2.3 % (0.0-10.0); %Lymphocytes 10.4 % (21.0-51.0); %Monocytes 8.7 % (0.0-10.0); %Neutrophils 78.5 % (42.0-75.0); Hemoglobin 10.3 g/dL (14.0-18.0); Mean Corpuscular HGB CONC 32.3 g/dL (32.0-36.0); Mean Corpuscular Hemoglobin 27.5 pg (27.0-31.0); Mean Platelet Volume 6.8 fL (7.4-10.4); PLT Morphology Comment Appears Adequate; Platelet Count 356 thou/uL (130-400); RBC Distribution Width 12.8 % (11.5-14.5); Red Blood Cell (RBC) Count 3.76 mill/uL (4.70-6.10); White Blood Cell (WBC) Count 8.2 thou/uL (4.8-10.8)
[2018-01-31 05:01] LABS: Anion Gap 8 mmol/L (10-20); BUN (Urea Nitrogen) 16 mg/dL (8.4-25.7); Calc. Creatinine Clearance 105 mL/min (70-130); Calcium 8.1 mg/dL (7.8-10.44); Carbon Dioxide 31 mmol/L (23-31); Chloride 102 mmol/L (98-107); Estimated GFR-MDRD Greater than 90; Glucose 97 mg/dL (83-110); Potassium 4.1 mmol/L (3.5-5.1); Sodium 137 mmol/L (136-145)
[2018-01-31] MEDS: HYDROcodone/Acetaminophen 7.5/325 mg Tablet PO PRN ×3 (05:50→22:22)
[2018-01-31] MEDS: Levothyroxine Sodium 75 MCG TAB PO SCH (05:50)
[2018-01-31] MEDS: Metoprolol Tartrate 50 MG TAB PO SCH ×2 (05:51→20:58)
[2018-01-31] MEDS: [UNRECOGNIZED DRUG - OTHER] SSW SCH ×3 (05:51→17:45)
[2018-01-31] MEDS: ALUMINUM SSW SCH ×3 (05:51→17:45)
[2018-01-31] MEDS: DIPHENHYDRAMINE SSW SCH ×3 (05:51→17:45)
[2018-01-31] MEDS: MEROPENEM 1 GM/50 ML 1 GM in Premix Bag 1 BAG IVPB SCH ×3 (05:51→20:57)
[2018-01-31] MEDS: MAGNESIUM HYDROXIDE SSW SCH ×3 (05:51→17:45)
[2018-01-31] MEDS: Atorvastatin Calcium 40 MG TAB PO SCH (08:19)
[2018-01-31] MEDS: Amlodipine 10 MG TAB PO SCH (08:19)
[2018-01-31] MEDS: Potassium Chloride 20 MEQ TAB PO SCH (08:19)
[2018-01-31] MEDS: Fluconazole 100 MG TAB PO SCH (08:19)
[2018-01-31] MEDS: Citalopram 10 MG TAB PO SCH (08:20)
[2018-01-31] MEDS: Tamsulosin HCl 0.4 MG CAP PO SCH (08:20)
[2018-01-31] MEDS: Loratadine 10 MG TAB PO SCH (08:20)
[2018-01-31] MEDS: Docusate 100 MG CAP PO SCH ×2 (08:21→20:58)
[2018-01-31] MEDS: Heparin 5,000 UNITS/ML VIAL SC SCH ×3 (08:21→20:58)
[2018-01-31 08:51] LABS: INR-International Normal Ratio 1.2; PTT 33.2 SEC (22.9-36.1); Prothrombin Time 14.9 SEC (12.0-14.7)
--- NOTE | 2018-01-31 12:49 | PDOC.PN ---
- Subjective Encounter Start Date: 01/31/18 Encounter Start Time: 09:15 Subjective: feels better, is waiting for picc line placement -: no pain or sob -: headache is better, says his surgeon cancelled LP - Objective MAR Reviewed: Yes Vital Signs & Weight: Vital Signs (12 hours) Temp Pulse Resp BP BP BP Pulse Ox 01/31/18 11:50 98.3 F 88 20 105/66 94 L 01/31/18 09:00 98.3 F 67 18 159/85 H 95 01/31/18 08:19 71 156/83 H 01/31/18 08:00 98.3 F 67 18 95 01/31/18 04:31 98.0 F 71 18 158/83 H 93 L I&O: 01/30/18 01/31/18 02/01/18 06:59 06:59 06:59 Intake Total 580 580 Output Total 350 Balance 230 580 Result Diagrams: 01/31/18 03:24 01/31/18 03:24 Phys Exam - Physical Examination HEENT: PERRLA, moist MMs Neck: no JVD, supple Respiratory: no wheezing, no rales Cardiovascular: RRR, no significant murmur Gastrointestinal: soft, non-tender, no distention, positive bowel sounds Musculoskeletal: no edema, pulses present Neurological: non-focal, moves all 4 limbs Psychiatric: normal affect, A&O x 3 Dx/Plan (1) Septic arthritis Status: Acute Qualifiers: Septic arthritis location: multiple locations Comment: right shoulder, knee and likely right hip as well (2) Sepsis Code(s): A41.9 - SEPSIS, UNSPECIFIED ORGANISM Status: Acute Comment: clostridium perfringens (3) Bacteremia Code(s): R78.81 - BACTEREMIA Status: Acute Comment: c.perfringens (4) CAD (coronary artery disease) Code(s): I25.10 - ATHSCL HEART DISEASE OF [place] CORONARY ARTERY W/O ANG PCTRS Status: Chronic Qualifiers: Coronary Disease-Associated Artery/Lesion type: [place] artery [place] vs. transplanted heart: [place] heart Associated angina: without angina Qualified Code(s): I25.10 - Atherosclerotic heart disease of [place] coronary artery without angina pectoris (5) HTN (hypertension) Code(s): I10 - ESSENTIAL (PRIMARY) HYPERTENSION Status: Chronic Qualifiers: Hypertension type: essential hypertension Qualified Code(s): I10 - Essential (primary) hypertension (6) Dyslipidemia Code(s): E78.5 - HYPERLIPIDEMIA, UNSPECIFIED Status: Chronic (7) H/O prostatectomy Code(s): Z90.79 - ACQUIRED ABSENCE OF OTHER GENITAL ORGAN(S) Status: Chronic Comment: in sep (8) Hypothyroidism Code(s): E03.9 - HYPOTHYROIDISM, UNSPECIFIED Status: Chronic Qualifiers: Hypothyroidism type: unspecified Qualified Code(s): E03.9 - Hypothyroidism , unspecified - Plan is on meropenem and diflucan (from today) -: for likely removal of hardware on from right shoulder and knee -: had total of 2 debridements for the same joints so far -: continue lopressor, morphine, norco, tizanidine prn -: to amb in hallway as tolerated * . Review of Systems - Medications/Allergies Allergies/Adverse Reactions: Allergies Allergy/AdvReac Type Severity Reaction Status Date / Time niacin Allergy Unknown Verified 06/24/13 14:05 Medications: Current Medications Acetaminophen (Tylenol) 650 mg PO Q4H PRN PRN Reason: Headache/Fever or Pain Last Admin: 01/27/18 00:30 Dose: 650 mg Hydrocodone Bitart/Acetaminophen ([place] 7.5/325) 1 tab PO Q6H PRN PRN Reason: Mild-Moderate Pain (1-5) Last Admin: 01/29/18 18:17 Dose: 1 tab Hydrocodone Bitart/Acetaminophen ([place] 7.5/325) 2 tab PO Q6H PRN PRN Reason: Moderate to Severe Pain (6-10) Last Admin: 01/31/18 05:50 Dose: 2 tab Amlodipine Besylate (Norvasc) 10 mg PO DAILY [facility] Last Admin: 01/31/18 08:19 Dose: 10 mg Atorvastatin Calcium (Lipitor) 40 mg PO DAILY [facility] Last Admin: 01/31/18 08:19 Dose: 40 mg Calcium Carbonate (Tums) 1,000 mg PO Q4H PRN PRN Reason: INDIGESTION Last Admin: 01/28/18 20:39 Dose: 1,000 mg Citalopram Hydrobromide (Celexa) 10 mg PO DAILY [facility] Last Admin: 01/31/18 08:20 Dose: 10 mg Al Hydroxide/Mg Hydroxide 20 ml/ Diphenhydramine HCl 50 mg/Lidocaine HCl 20 ml/ Nystatin 2,000,000 units 0 ml SSW Q6HR [facility] Stop: 01/31/18 18:01 Last Admin: 01/31/18 05:51 Dose: 10 ml Diphenhydramine HCl (Benadryl) 25 mg PO Q6H PRN PRN Reason: Itching & Insomnia Last Admin: 01/30/18 11:18 Dose: 25 mg Docusate Sodium (Colace) 100 mg PO BID [facility] Last Admin: 01/31/18 08:21 Dose: 100 mg Fluconazole (Diflucan) 100 mg PO DAILY [facility] Last Admin: 01/31/18 08:19 Dose: 100 mg Heparin Sodium (Porcine) (Heparin) 5,000 units SC TID [facility] Last Admin: 01/31/18 08:21 Dose: Not Given Meropenem 1 gm/ Device 50 mls @ 100 mls/hr IVPB Q8HR [facility] Last Admin: 01/31/18 05:51 Dose: 50 mls Lactulose (Lactulose) 20 gm PO DAILYPRN PRN PRN Reason: Constipation Levothyroxine Sodium (Synthroid) 75 mcg PO 0600 [facility] Last Admin: 01/31/18 05:50 Dose: 75 mcg Loratadine (Claritin) 10 mg PO DAILY [facility] Last Admin: 01/31/18 08:20 Dose: 10 mg Magnesium Hydroxide (Milk Of Magnesium) 30 ml PO DAILYPRN PRN PRN Reason: Constipation Metoprolol Tartrate (Lopressor) 50 mg PO BID [facility] Last Admin: 01/31/18 05:51 Dose: 50 mg Mirabegron (Myrbetriq Er) 25 mg PO DAILY [facility] Last Admin: 01/31/18 08:20 Dose: 25 mg Morphine Sulfate (Morphine) 4 mg SLOW IVP Q3H PRN PRN Reason: Chest Pain/BP Elevations Last Admin: 01/31/18 02:05 Dose: 4 mg Nitroglycerin (Nitrostat) 0.4 mg SL PRN PRN PRN Reason: Chest Pain Olmesartan (Benicar) 40 mg PO DAILY [facility] Last Admin: 01/31/18 08:19 Dose: 40 mg Ondansetron HCl (Zofran Odt) 4 mg PO Q6H PRN PRN Reason: Nausea/Vomiting Ondansetron HCl (Zofran) 4 mg IVP Q6H PRN PRN Reason: Nausea/Vomiting Pantoprazole Sodium (Protonix) 40 mg PO DAILY [facility] Last Admin: 01/31/18 08:19 Dose: 40 mg Potassium Chloride (K-Dur) 20 meq PO DAILY [facility] Last Admin: 01/31/18 08:19 Dose: 20 meq Sodium Chloride (Flush - Normal Saline) 10 ml IVF Q12HR [facility] Last Admin: 01/31/18 08:20 Dose: 10 ml Sodium Chloride (Flush - Normal Saline) 10 ml IVF PRN PRN PRN Reason: Saline Flush Tamsulosin HCl (Flomax) 0.4 mg PO DAILY [facility] Last Admin: 01/31/18 08:20 Dose: 0.4 mg Tizanidine HCl (Zanaflex) 2 mg PO Q4H PRN PRN Reason: Muscle Spasm Last Admin: 01/27/18 00:31 Dose: 2 mg Tramadol HCl (Ultram) 50 mg PO Q6H PRN PRN Reason: Moderate Pain (4-6) Last Admin: 01/30/18 11:23 Dose: 50 mg
--- NOTE | 2018-01-31 14:31 | SPC ---
ULTRASOUND AND FLUOROSOCPIC GUIDED LEFT UPPER EXTREMITY PICC LINE PLACEMENT. INDICATION: Need for long-term IV antibiotics. TECHNIQUE: Informed consent was obtained. Preprocedure ultrasound demonstrated patent left basilic vein. The l eft upper extremity was prepped and draped in the usual sterile fashion. Buffered 1% Lidocaine was a dministered to the overlying subcutaneous tissues. Under ultrasound guidance, a micropuncture access kit was utilized to gain access to the left basilic vein. The guidewire was advanced to the level o f the right atrium. Multiple attempts were made to advance the wire into the IVC that proved to be u nsuccessful. The wire was then placed within the distal SVC. A 5 [place] catheter sheath was then pl aced. A dual-lumen PICC line trimmed to 49 cm was then guided over the wire and through the sheath. The sheath and wire were removed. The tip of the catheter is seen at the level of the cavoatrial ju nction. The catheter flushed and aspirated appropriately. The total fluoroscopic time was 1.4 minut . Total exposure was 8059 mGy*cm2. IMPRESSION: Successful ultrasound and fluorosocpic-guided left upper extremity PICC line placement. POS: [facility]
--- NOTE | 2018-01-31 16:15 | CON ---
DATE OF CONSULTATION: 01/31/2018 HISTORY OF PRESENT ILLNESS: Mr. Sly Palmer is a very pleasant 72-year-old gentleman, referred for evaluation for hyperbaric oxygen therapy. The patient was admitted to [facility] on 01/23/2018, and shortly thereafter was taken to the operating room for irrigation and debridem ent of an infected right total knee arthroplasty, irrigation and debridement of an infected right jessica ulder arthroplasty, and aspiration of the right hip joint. Cultures of synovial fluid and of the rig ht knee revealed the growth of Clostridium perfringens. In addition, blood cultures obtained on 01/03 also revealed the growth of Clostridium perfringens. On 01/25/2018, the patient underwent CT- guided drainage of a pelvic abscess and cultures also revealed the growth of Clostridium perfringens. Mr. Palmer was taken again to the operating room on 01/29/2018 for incision and drainage of the r ight shoulder with placement of antibiotic beads as well as incision and drainage of right total knee arthroplasty, also with antibiotic bead placement. The patient states he is to return to the operat ing room again in 3 days. PAST MEDICAL HISTORY: 1. Hypertension. 2. Hypothyroidism. 3. Gastroesophageal reflux disease. 4. Coronary artery disease. 5. Prostate carcinoma. PAST SURGICAL HISTORY: 1. Right hip replacement. 2. Bilateral knee replacements. 3. Prostatectomy for prostate carcinoma. 4. Right shoulder surgery. 5. 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 6. Incision and drainage right shoulder with antibiotic bead placement, and incision and drainage ri ght total knee arthroplasty with antibiotic bead placement. MEDICATIONS ON ADMISSION: Amlodipine/atorvastatin, aspirin 325 mg, citalopram, clopidogrel, Dexilant , levothyroxine, olmesartan, tamsulosin, and tramadol. ALLERGIES: NIACIN. SOCIAL HISTORY: Social history is negative for tobacco or ETOH use. FAMILY HISTORY: Family history is significant for coronary artery disease. The patient states that his father was diagnosed with coronary artery disease. PHYSICAL EXAMINATION: VITAL SIGNS: Temperature 98.3, pulse 67, respirations 18, blood pressure 156/83. GENERAL: A 72-year-old gentleman sitting on chair in no acute distress. HEENT: Normocephalic, atraumatic. NECK: No nuchal rigidity. CHEST: Clear to auscultation. CARDIAC: Regular rate and rhythm. ABDOMEN: Soft. EXTREMITIES: No clubbing or cyanosis. NEUROLOGIC: Grossly nonfocal. ASSESSMENT AND PLAN: A 72-year-old gentleman referred for evaluation for hyperbaric oxygen therapy f or treatment of clostridial bacteremia with seeding of multiple joints. The patient denies any histo ry of congestive heart failure, seizures, crushing chest trauma, pneumothorax, recent retinal surgery , blood disorders including hereditary spherocytosis or administration of any chemotherapeutic agents contraindicating hyperbaric oxygen therapy. The patient understands the risks and benefits of hyper baric oxygen therapy and wishes to proceed. The patient will be treated at 3.0ATA for 90 minutes on a daily basis. The length of therapy will depend upon the patient's response to therapy in conjuncti on with serial clinical exams. The patient will be brought to the hyperbaric lab today for the initi ation of HBOT.
--- NOTE | 2018-01-31 19:33 | PRG ---
DATE OF SERVICE: 01/31/2018 SUBJECTIVE: Feeling better from the standpoint of his back area eruption. Joints are about the same . No abdominal pain. A little bit of swelling in the scrotal area. OBJECTIVE: VITAL SIGNS: T-max 98.8, blood pressure 124/79, pulse 75, respirations 18, O2 sat 92%-95%. GENERAL: Awake, alert, oriented. BACK: Back eruption is not as bright as yesterday and does not have the same amount of pruritus. LUNGS: Symmetric clear breath sounds. HEART: S1, S2 regular rate. ABDOMEN: Soft with no tenderness. LABORATORY DATA: White cell count 8.2, hemoglobin 10.3, platelets 356. Sodium 137, creatinine 0.75. 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 No evidence of communication with the colon. A repeat CT scan probably will be advisable, and also with the joint expansion of the infectious process includin g right knee and right shoulder, status post washout and I believe removal of the right shoulder join t. The patient currently on meropenem, to be continued; and oral Diflucan as well. I believe that s omeburak ordered hyperbaric treatment. Date of therapy with meropenem will be week march.
[2018-02-01] MEDS: Morphine 4 MG/ML VIAL SLOW IVP PRN (01:18)
[2018-02-01] MEDS: diphenhydrAMINE 25 MG CAP PO PRN (01:19)
[2018-02-01 05:17] LABS: #Eosinphils 0.2 thou/uL (0.0-0.7); #Lymphocytes 0.9 thou/uL (1.20-3.40); #Monocytes 0.7 thou/uL (0.11-0.59); #Neutrophils 6.8 thou/uL (1.40-6.50); %Basophils 0.1 % (0.0-1.0); %Eosinophils 2.2 % (0.0-10.0); %Lymphocytes 10.3 % (21.0-51.0); %Monocytes 8.3 % (0.0-10.0); %Neutrophils 79.1 % (42.0-75.0); Hemoglobin 9.6 g/dL (14.0-18.0); Mean Corpuscular HGB CONC 32.4 g/dL (32.0-36.0); Mean Corpuscular Hemoglobin 27.6 pg (27.0-31.0); Mean Corpuscular Volume 85.1 fl (80.0-94.0); Platelet Count 355 thou/uL (130-400); RBC Distribution Width 12.8 % (11.5-14.5); Red Blood Cell (RBC) Count 3.48 mill/uL (4.70-6.10); White Blood Cell (WBC) Count 8.6 thou/uL (4.8-10.8)
[2018-02-01] MEDS: MEROPENEM 1 GM/50 ML 1 GM in Premix Bag 1 BAG IVPB SCH ×3 (05:48→20:24)
[2018-02-01] MEDS: Levothyroxine Sodium 75 MCG TAB PO SCH (05:48)
[2018-02-01] MEDS: HYDROcodone/Acetaminophen 7.5/325 mg Tablet PO PRN ×3 (05:48→20:32)
[2018-02-01 05:57] LABS: Anion Gap 8 mmol/L (10-20); BUN (Urea Nitrogen) 14 mg/dL (8.4-25.7); Calc. Creatinine Clearance 114 mL/min (70-130); Carbon Dioxide 29 mmol/L (23-31); Chloride 101 mmol/L (98-107); Estimated GFR-MDRD Greater than 90; Glucose 104 mg/dL (83-110); Potassium 4.3 mmol/L (3.5-5.1); Sodium 134 mmol/L (136-145)
[2018-02-01] MEDS: Docusate 100 MG CAP PO SCH ×2 (08:27→20:23)
[2018-02-01] MEDS: Potassium Chloride 20 MEQ TAB PO SCH (08:27)
[2018-02-01] MEDS: Metoprolol Tartrate 50 MG TAB PO SCH ×2 (08:27→20:24)
[2018-02-01] MEDS: Tamsulosin HCl 0.4 MG CAP PO SCH (08:27)
[2018-02-01] MEDS: Citalopram 10 MG TAB PO SCH (08:27)
[2018-02-01] MEDS: Fluconazole 100 MG TAB PO SCH (08:27)
[2018-02-01] MEDS: Loratadine 10 MG TAB PO SCH (08:27)
[2018-02-01] MEDS: Atorvastatin Calcium 40 MG TAB PO SCH (08:28)
[2018-02-01] MEDS: Heparin 5,000 UNITS/ML VIAL SC SCH ×3 (08:32→20:24)
[2018-02-01] MEDS: Amlodipine 10 MG TAB PO SCH (08:53)
--- NOTE | 2018-02-01 09:23 | PRG ---
DATE OF SERVICE: 01/30/2018 SUBJECTIVE: Patient developed eruption in the back of his body and the torso for the past few days, which is somewhat pruritic. The neck pain is improved markedly, has no headaches, he is not vomiting . Patient had a washout of the shoulder and the knee in preparation for surgery with Dr. Jose and Dr. Ling, I believe on Wednesday. OBJECTIVE: VITAL SIGNS: His T-max is 98.3, blood pressure 160/83, pulse 60, respirations 18, O2 sat 95%. GENERAL: Appears no distress, pleasant, oriented. HEENT: Ocular movements conjugate. SKIN: Shows folliculitis in the back area only. HEART: S1, S2. Regular rate. ABDOMEN: Soft. LUNGS: Clear. EXTREMITIES: Right shoulder and right knee implant sites with dressing, which was not removed. He m oves otherwise the extremities with no limitations except for the inflammatory process in the right s houlder and knee. LABORATORY DATA: White cell count is 8.2, hemoglobin 10.4, MCV 84, platelets , 76% neutrophils. Sodium 137, creatinine 0.7. Liver profile normal. Albumin is 2.6. Microbiology now with Bacteroi eduin, Clostridium perfringens as noted before. 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 Patient has had washout x2 and is going to have the joints removed, I believed Wednesday that is going to be carried out, may have a 1 stage revision. The skin eruption is likely to be secondary to tended folliculitis associated with diapho resis state and antimicrobial therapy administration. We will add Diflucan to that. Continue meropenem as previously planned.
--- NOTE | 2018-02-01 12:30 | PRG ---
DATE OF SERVICE: 01/30/2018 SUBJECTIVE: Sly is postop day 1 from his second incision and drainage washout with antibiotic bead p lacement of the right knee and right glenohumeral joint, both of which arthroplasty in nature. This is a second decompressive washouts and explorations; however, this time we placed periarticular antib iotic spacers in both. I have discussed the patient with both Dr. Duke Ling and Dr. Rickie matos, who will be assuming care from Dr. 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 Yesterday after observing intubation noticed he had a rené y red pharynx with patches of white material observed when he was being intubated, therefore I went a head and treated him with oral swish and swallow antifungal. Today, his throat is a little bit chiquis r. I think his neck pain and headache are little equivocal, but he is eating now and he is having di nner with his family currently. He is eating solid foods. There has been discussion about performin g a lumbar puncture for his headache and neck complaints and I believe PICC line is going to be place d tomorrow as well. PHYSICAL EXAMINATION: He is alert and oriented to person, place, time, and situation. He standing u pright. He does have peripheral edema in the dependent aspect of both upper and lower extremities an d also on the buttocks and his scrotum is quite enlarged and edematous. His belly is nontender and n onperitoneal. His joints move well. No severe provocative pain and they do not appear to be exquisi tely tender. There has been no reaccumulation currently of effusion. He is neurovascular intact. T here is no erythema noted in the extremities. IMPRESSION: 1. 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 2. 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 3. Abdominal fluid collection with of Bacteroides and Clostridium perfringens noted on culture . 4. Peripheral dependent edema. 5. What appears to be a heat rash on his back involving only the posterior torso. I think some of h is symptoms are coming from dependent edema in activity but he appears to be third spacing fair amoun t of fluid but he is not symptomatic from this from pulmonary standpoint. PLAN: We are planning for an excisional arthroplasty on of this week to include excision an d explantation of the right shoulder hardware to include the prosthesis in the humerus as well as the glenoid. Antibiotic spacer will be placed at the same time. Excisional arthroplasty of the right k nee first stage will also be performed the same time. I would like to talk to his Dr. Avani devi g the patient in terms of disposition on his abdomen and a fluid collection with positive cultures, s o that we may move on the joint without receding. PICC line will be placed tomorrow and we will cont inue to monitor his throat, headache, and neck pain and see if he improves. We will recheck the natalee ent tomorrow. Encouraged walking out of bed, oral intake because his albumin has been quite low and I believe he is malnourished. We will recheck the patient tomorrow.
--- NOTE | 2018-02-01 14:34 | PDOC.PN ---
- Subjective Encounter Start Date: 02/01/18 Encounter Start Time: 14:33 Ms. Palmer was seen today in follow-up. He notes that his right knee is a bit " touchy", otherwise no complaints. - Objective MAR Reviewed: Yes Vital Signs & Weight: Vital Signs (12 hours) Temp Pulse Resp BP Pulse Ox 02/01/18 08:53 73 02/01/18 08:00 98 F 73 18 02/01/18 07:49 98.0 F 73 20 129/81 94 L I&O: 01/31/18 02/01/18 02/02/18 06:59 06:59 06:59 Intake Total 580 530 Balance 580 530 Result Diagrams: 02/01/18 03:58 02/01/18 03:58 Phys Exam - Physical Examination HEENT: PERRLA, sclera anicteric Respiratory: no wheezing, no rales, no rhonchi + coarse breath sounds Cardiovascular: RRR, no significant murmur, no rub Gastrointestinal: soft, non-tender, no distention, positive bowel sounds Musculoskeletal: pulses present, edema present trace edema on the right lower extremity Dx/Plan (1) Bacterial infection due to Clostridium perfringens Code(s): B96.7 - CLOSTRIDIUM PERFRINGENS CAUSING DISEASES CLASSD ELSWHR Status : Acute (2) Bacteremia Code(s): R78.81 - BACTEREMIA Status: Acute Comment: c.perfringens (3) HTN (hypertension) Code(s): I10 - ESSENTIAL (PRIMARY) HYPERTENSION Status: Chronic Qualifiers: Hypertension type: essential hypertension Qualified Code(s): I10 - Essential (primary) hypertension (4) Hypothyroidism Code(s): E03.9 - HYPOTHYROIDISM, UNSPECIFIED Status: Chronic Qualifiers: Hypothyroidism type: unspecified Qualified Code(s): E03.9 - Hypothyroidism , unspecified (5) Sepsis Code(s): A41.9 - SEPSIS, UNSPECIFIED ORGANISM Status: Acute Comment: clostridium perfringens (6) Septic arthritis Status: Acute Qualifiers: Septic arthritis location: multiple locations Comment: right shoulder, knee and likely right hip as well - Plan * Bacteremia due to Clostridium Perfringes with septic arthritis of the right knee and right shoulder- continue Meropenem * Plan to to have the prosthesis removed from the knee and shoulder * Patient will also be undergoing HBOT * HTN- blood pressure is stable * Hypothyroidism- clinically stable.
[2018-02-02] MEDS: Levothyroxine Sodium 75 MCG TAB PO SCH (04:28)
[2018-02-02] MEDS: Metoprolol Tartrate 50 MG TAB PO SCH ×2 (04:28→21:01)
[2018-02-02] MEDS: HYDROcodone/Acetaminophen 7.5/325 mg Tablet PO PRN ×4 (04:29→21:00)
[2018-02-02 04:38] LABS: Anion Gap 9 mmol/L (10-20); BUN (Urea Nitrogen) 13 mg/dL (8.4-25.7); Calc. Creatinine Clearance 104 mL/min (70-130); Calcium 8.6 mg/dL (7.8-10.44); Carbon Dioxide 31 mmol/L (23-31); Chloride 99 mmol/L (98-107); Estimated GFR-MDRD Greater than 90; Glucose 113 mg/dL (83-110); Potassium 4.5 mmol/L (3.5-5.1); Sodium 134 mmol/L (136-145)
[2018-02-02 05:23] LABS: #Eosinphils 0.2 thou/uL (0.0-0.7); #Lymphocytes 1.4 thou/uL (1.20-3.40); #Monocytes 0.8 thou/uL (0.11-0.59); #Neutrophils 9.1 thou/uL (1.40-6.50); %Basophils 0.1 % (0.0-1.0); %Eosinophils 1.8 % (0.0-10.0); %Lymphocytes 11.8 % (21.0-51.0); %Neutrophils 79.2 % (42.0-75.0); Hemoglobin 10.4 g/dL (14.0-18.0); Mean Corpuscular HGB CONC 32.2 g/dL (32.0-36.0); Mean Corpuscular Hemoglobin 27.6 pg (27.0-31.0); Mean Corpuscular Volume 85.7 fl (80.0-94.0); Mean Platelet Volume 6.5 fL (7.4-10.4); PLT Morphology Comment Appears Increased; Platelet Count 447 thou/uL (130-400); Red Blood Cell (RBC) Count 3.77 mill/uL (4.70-6.10); White Blood Cell (WBC) Count 11.5 thou/uL (4.8-10.8)
[2018-02-02] MEDS: MEROPENEM 1 GM/50 ML 1 GM in Premix Bag 1 BAG IVPB SCH ×3 (05:36→21:01)
[2018-02-02] MEDS ORDERED: Ciprofloxacin 0.2% Otic ONE (06:35)
[2018-02-02] MEDS: Citalopram 10 MG TAB PO SCH (07:11)
[2018-02-02] MEDS: Fluconazole 100 MG TAB PO SCH (07:11)
[2018-02-02] MEDS: Docusate 100 MG CAP PO SCH ×2 (07:11→21:01)
[2018-02-02] MEDS: Heparin 5,000 UNITS/ML VIAL SC SCH (07:11)
[2018-02-02] MEDS: Amlodipine 10 MG TAB PO SCH (07:11)
[2018-02-02] MEDS: Atorvastatin Calcium 40 MG TAB PO SCH (07:11)
[2018-02-02] MEDS: Tamsulosin HCl 0.4 MG CAP PO SCH (07:12)
[2018-02-02] MEDS: Loratadine 10 MG TAB PO SCH (07:12)
[2018-02-02] MEDS: Potassium Chloride 20 MEQ TAB PO SCH (07:12)
[2018-02-02] MEDS ORDERED: Promethazine HCl 25 MG/ML VIAL IM PRN (09:36)
[2018-02-02] MEDS ORDERED: Ondansetron HCl/PF 4 MG/2 ML Vial IVP PRN (09:36)
[2018-02-02] MEDS ORDERED: Promethazine HCl 25 MG/ML VIAL SLOW IVP PRN (09:36)
[2018-02-02] MEDS ORDERED: Fentanyl 100 MCG/2 ML VIAL ONE (09:59)
--- NOTE | 2018-02-02 12:37 | PRG ---
DATE OF SERVICE: 02/02/2018 SUBJECTIVE: Sly is doing relatively well. His neck and head pain is improved. He is swallowing and eating much better. The hyperbaric treatment has been initiated and his edema has improved as well as the rash on his back is improved and throat discomfort is also much better. We scheduled him for tomorrow to have a first stage of excisional arthroplasty of the right knee as well as an exploration , washout, and possible excisional arthroplasty of the right shoulder in the morning. OBJECTIVE: VITAL SIGNS: Temperature 98, pulse 73, respiratory rate 16, and O2 saturation 96% on room air, blood pressure 150/100. He has been running a little hypertensive lately. GENERAL: He is alert and oriented to person, place, time, and situation, conversing with examiner an d appropriate, smiles and converses easily. Grossly nonfocal. EXTREMITIES: Visual inspection of the right shoulder demonstrates him to have no erythema. Same exa mination of the right knee, little accumulation is noted at the knee, but otherwise no purulence or d rainage. No physeal, no strikethrough. He is neurovascularly intact in both right upper extremity a nd right lower extremity. ASSESSMENT: 1. Septic arthritis, periprosthetic in nature, right glenohumeral joint with Clostridium perfringens . 2. Septic periprosthetic arthritis, right knee, Clostridium perfringens. 3. Hypertension. 4. Mild postoperative hemorrhagic anemia. Hemoglobin 10.4, hematocrit 30.3. This has been relative ly stable. PLAN: 1. The risks, benefits, options, alternatives, and rationale for proceeding with excisional arthropl asty, exploration, and washout the right glenohumeral joint and right knee with staged excisional art hroplasty has been explained in great detail with the patient. He is ready to proceed. All question s were answered. No guarantee of outcome was stated or implied. 2. CBC, C-reactive protein and sedimentation rate for baseline evaluation preoperatively will be obt ained today. 3. We will hold Lovenox. 4. N.p.o. after midnight. 5. Please see orders.
[2018-02-02 12:59] LABS: #Basophils 0.1 thou/uL (0.0-0.2); #Eosinphils 0.2 thou/uL (0.0-0.7); #Lymphocytes 0.8 thou/uL (1.20-3.40); #Monocytes 0.7 thou/uL (0.11-0.59); #Neutrophils 6.7 thou/uL (1.40-6.50); %Basophils 0.7 % (0.0-1.0); %Eosinophils 2.1 % (0.0-10.0); %Lymphocytes 9.4 % (21.0-51.0); %Monocytes 8.7 % (0.0-10.0); Mean Corpuscular HGB CONC 32.1 g/dL (32.0-36.0); Mean Corpuscular Hemoglobin 27.2 pg (27.0-31.0); Mean Corpuscular Volume 84.9 fl (80.0-94.0); Mean Platelet Volume 6.3 fL (7.4-10.4); Platelet Count 415 thou/uL (130-400); RBC Distribution Width 12.9 % (11.5-14.5); Red Blood Cell (RBC) Count 3.68 mill/uL (4.70-6.10); White Blood Cell (WBC) Count 8.4 thou/uL (4.8-10.8)
[2018-02-02] MEDS ORDERED: PROPOFOL 200 MG/20 ML VIAL ONE (14:58)
[2018-02-02] MEDS ORDERED: Lidocaine 1% PF 5 ML VIAL ONE (14:58)
[2018-02-02] MEDS ORDERED: hydrALAZINE 25 MG TAB PO PRN (19:27)
--- NOTE | 2018-02-02 19:38 | PDOC.PN ---
- Subjective Encounter Start Date: 02/02/18 Encounter Start Time: 19:37 Mr. Palmer was seen today in follow-up. He says he got a bit nervous in the Hyperbaric chamber today. He notes that the swelling is improving in his right upper extremity. - Objective MAR Reviewed: Yes Vital Signs & Weight: Vital Signs (12 hours) Temp Pulse Resp BP Pulse Ox 02/02/18 10:31 98 F 73 16 158/100 H 96 I&O: 02/01/18 02/02/18 02/03/18 06:59 06:59 06:59 Intake Total 530 Balance 530 Result Diagrams: 02/02/18 12:46 02/02/18 04:10 Phys Exam - Physical Examination HEENT: PERRLA Respiratory: no wheezing, no rales, no rhonchi, clear to auscultation bilateral Cardiovascular: RRR, no significant murmur, no rub Gastrointestinal: soft, non-tender, no distention, positive bowel sounds Musculoskeletal: edema present + swelling in the right lower extremity, mild erythema no warmth + swelling in the left upper extremity Dx/Plan (1) Bacterial infection due to Clostridium perfringens Code(s): B96.7 - CLOSTRIDIUM PERFRINGENS CAUSING DISEASES CLASSD ELSWHR Status : Acute (2) Bacteremia Code(s): R78.81 - BACTEREMIA Status: Acute Comment: c.perfringens (3) HTN (hypertension) Code(s): I10 - ESSENTIAL (PRIMARY) HYPERTENSION Status: Chronic Qualifiers: Hypertension type: essential hypertension Qualified Code(s): I10 - Essential (primary) hypertension (4) Hypothyroidism Code(s): E03.9 - HYPOTHYROIDISM, UNSPECIFIED Status: Chronic Qualifiers: Hypothyroidism type: unspecified Qualified Code(s): E03.9 - Hypothyroidism , unspecified (5) Sepsis Code(s): A41.9 - SEPSIS, UNSPECIFIED ORGANISM Status: Acute Comment: clostridium perfringens (6) Septic arthritis Status: Acute Qualifiers: Septic arthritis location: multiple locations Comment: right shoulder, knee and likely right hip as well - Plan * Clostridium Perfringes sepsis, and septic joint- continue Meropenem IV * Continue HBOT as indicated * HTN- his blood pressure has been elevated- will add Hydralazine as needed * Hypothyroidism- this is clinically stable.
[2018-02-02] MEDS: Morphine 4 MG/ML VIAL SLOW IVP PRN (23:38)
[2018-02-03] MEDS: Morphine 4 MG/ML VIAL SLOW IVP PRN (04:17)
[2018-02-03] MEDS: MEROPENEM 1 GM/50 ML 1 GM in Premix Bag 1 BAG IVPB SCH ×2 (05:34→16:31)
[2018-02-03] MEDS: HYDROcodone/Acetaminophen 7.5/325 mg Tablet PO PRN (05:37)
[2018-02-03] MEDS: Metoprolol Tartrate 50 MG TAB PO SCH ×2 (05:37→20:41)
[2018-02-03] MEDS: Levothyroxine Sodium 75 MCG TAB PO SCH (05:43)
[2018-02-03 05:48] LABS: #Eosinphils 0.2 thou/uL (0.0-0.7); #Lymphocytes 0.9 thou/uL (1.20-3.40); #Monocytes 0.8 thou/uL (0.11-0.59); #Neutrophils 5.5 thou/uL (1.40-6.50); %Basophils 0.4 % (0.0-1.0); %Eosinophils 3.2 % (0.0-10.0); %Lymphocytes 11.9 % (21.0-51.0); %Monocytes 10.5 % (0.0-10.0); Hemoglobin 9.3 g/dL (14.0-18.0); Mean Corpuscular HGB CONC 31.5 g/dL (32.0-36.0); Mean Corpuscular Hemoglobin 26.8 pg (27.0-31.0); Mean Corpuscular Volume 85.1 fl (80.0-94.0); Mean Platelet Volume 6.3 fL (7.4-10.4); Platelet Count 439 thou/uL (130-400); Red Blood Cell (RBC) Count 3.48 mill/uL (4.70-6.10); White Blood Cell (WBC) Count 7.5 thou/uL (4.8-10.8)
[2018-02-03 06:09] LABS: Anion Gap 7 mmol/L (10-20); BUN (Urea Nitrogen) 14 mg/dL (8.4-25.7); Calc. Creatinine Clearance 111 mL/min (70-130); Calcium 8.3 mg/dL (7.8-10.44); Carbon Dioxide 30 mmol/L (23-31); Chloride 103 mmol/L (98-107); Estimated GFR-MDRD Greater than 90; Glucose 104 mg/dL (83-110); Potassium 4.3 mmol/L (3.5-5.1); Sodium 136 mmol/L (136-145)
[2018-02-03] MEDS: Loratadine 10 MG TAB PO SCH (08:23)
[2018-02-03] MEDS: Docusate 100 MG CAP PO SCH ×2 (08:23→20:42)
[2018-02-03] MEDS: Fluconazole 100 MG TAB PO SCH (08:23)
[2018-02-03] MEDS: Atorvastatin Calcium 40 MG TAB PO SCH (08:23)
[2018-02-03] MEDS: Citalopram 10 MG TAB PO SCH (08:23)
[2018-02-03] MEDS: Amlodipine 10 MG TAB PO SCH (08:23)
[2018-02-03] MEDS: Tamsulosin HCl 0.4 MG CAP PO SCH (08:24)
[2018-02-03] MEDS: Potassium Chloride 20 MEQ TAB PO SCH (08:24)
[2018-02-03] MEDS ORDERED: Vancomycin HCl 1.5 GM, Admixture Fee 1 EACH in Sodium Chloride 0.9% 250 ML 300 ML IVPB SCH (08:30)
[2018-02-03] MEDS ORDERED: Tobramycin Sulfate 1.2 GM VIAL ONE (09:06)
--- NOTE | 2018-02-03 09:29 | OP ---
DATE OF PROCEDURE: 02/02/2018 PREOPERATIVE DIAGNOSES: 1. Barotrauma. 2. Bilateral eustachian tube dysfunction. POSTOPERATIVE DIAGNOSES: 1. Barotrauma. 2. Bilateral eustachian tube dysfunction. PROCEDURES: Bilateral myringotomy with tube placement. SURGEON: Surjit Pereira M.D. ESTIMATED BLOOD LOSS: 0 mL. COMPLICATIONS: None. ANESTHESIA: TIVA. PROCEDURE IN DETAIL: Patient was taken to the operating room and placed supine on the table. Mask ane sthesia was obtained by the Anesthesia staff. The head was slightly tilted. The operating microscope was brought into the field. Attention was turned to the left ear. The speculum was placed, and the ear canal debris and cerumen was removed. The tympanic membrane was note d to be retracted with mucoid effusion. A radial type incision was made in the anterior inferior quad rant. The thick mucoid effusion was suctioned. A tympanostomy tube was placed within the myringotomy. An identical procedure was performed on the right ear. The patient tolerated the procedure well.
[2018-02-03] MEDS ORDERED: Fentanyl 250 MCG/5 ML VIAL ONE (09:33)
[2018-02-03] MEDS ORDERED: Bupivacaine HCl 0.5%/Epinephrine 1:200,000/PF 30 ml Vial ONE (12:24)
--- NOTE | 2018-02-03 12:28 | CON ---
DATE OF CONSULTATION: 02/02/2018 The patient was seen in consultation for evaluation of tube placement. The patient has undergone hyp erbaric oxygen therapy and was unable to perform his first half secondary to ear pain. The patient h as widespread sepsis and is currently planned for undergoing a removal of hardware. He will resume h is previous orthopedic procedures. He has never had problems on planes before, but since his illness he has noticed significantly more nasal congestion, ear pressure, difficulty popping his ears. PAST MEDICAL HISTORY, SURGICAL HISTORY, MEDICATIONS, DRUG ALLERGIES: All reviewed and see attached f orms. PHYSICAL EXAMINATION: Bilateral tympanic membranes are retracted with a scant amount of fluid presen t today. He is unable to auto insufflate his ears. Nasal cavity is fairly clear. Mild boggy nasal mucosa. Neck: No lymphadenopathy or masses. Oral cavity and oropharynx, mucosa is dry, otherwise m ucosa is intact. ASSESSMENT: 1. Barotrauma. 2. Bilateral eustachian tube dysfunction. PLAN: We will schedule for bilateral myringotomy tube placement RADHA.
[2018-02-03] MEDS ORDERED: Lidocaine 1% PF 5 ML VIAL ONE (12:54)
[2018-02-03] MEDS ORDERED: PROPOFOL 200 MG/20 ML VIAL ONE (12:54)
[2018-02-03] MEDS ORDERED: Glycopyrrolate 0.2 MG/ML 5 ML SYRINGE ONE (12:54)
[2018-02-03] MEDS ORDERED: Succinylcholine Chloride 20 MG/ML 10 ml SYRINGE FS ONE (12:54)
[2018-02-03] MEDS ORDERED: PHENYLEPHRINE-NS 100 MCG/ML 10 ML SYRINGE ONE (12:54)
[2018-02-03] MEDS ORDERED: Ketorolac Tromethamine 30 MG/ML VIAL ONE (12:54)
[2018-02-03] MEDS ORDERED: Ondansetron HCl/PF 4 MG/2 ML Vial IVP PRN ×3 (13:11→14:45)
[2018-02-03] MEDS ORDERED: traMADol HCl 50 MG TAB PO PRN (13:11)
[2018-02-03] MEDS ORDERED: Fentanyl 100 MCG/2 ML VIAL SLOW IVP PRN ×2 (13:11)
[2018-02-03] MEDS ORDERED: HYDROcodone/Acetaminophen 10/325 mg Tablet PO PRN ×2 (13:11)
[2018-02-03] MEDS ORDERED: Promethazine HCl 25 MG/ML VIAL SLOW IVP PRN (13:15)
[2018-02-03] MEDS ORDERED: Promethazine HCl 25 MG/ML VIAL IM PRN ×2 (13:15→14:45)
[2018-02-03] MEDS ORDERED: Fentanyl 100 MCG/2 ML VIAL ONE (13:45)
--- NOTE | 2018-02-03 13:59 | RAD ---
RIGHT SHOULDER 2 VIEWS: Date: 02/03/18 HISTORY: 72-year-old male for postop right shoulder replacement. FINDINGS: Reverse right shoulder arthroplasty changes are noted. No evidence for dislocation or periprosthetic fracture. IMPRESSION: Status post right reverse shoulder total replacement without periprosthetic fracture or dislocation. POS: OFF
--- NOTE | 2018-02-03 14:19 | RAD ---
RIGHT KNEE 2 VIEWS: HISTORY: Right knee revision. COMPARISON: 01/26/18. FINDINGS: Metallic femoral head component remains in place without stacy-hardware lucency. Radiolucent tibial c omponent is now in place. Soft tissue and joint gas and fluid are consistent with recent surgery. T iny metallic fragments now lie just posterior to the femoral condyles on the lateral view. IMPRESSION: Interval revision right knee prosthesis. POS: TANIA
[2018-02-03] MEDS ORDERED: Naloxone HCl 0.4 mg/ml Vial IV PRN (14:45)
[2018-02-03] MEDS ORDERED: Zolpidem Tartrate 5 MG TAB PO PRN (14:45)
[2018-02-03] MEDS ORDERED: Ketorolac Tromethamine 30 MG/ML VIAL IVP PRN (14:45)
[2018-02-03] MEDS ORDERED: diphenhydrAMINE 25 MG CAP PO PRN (14:45)
[2018-02-03] MEDS ORDERED: Acetaminophen 1,000 MG in Premix Bag 1 BAG IVPB PRN (14:46)
[2018-02-03] MEDS ORDERED: fentaNYL Citrate/PF 2,000 MCG in Sodium Chloride 0.9% 60 ML IV PRN (15:00)
[2018-02-03] MEDS: Sodium Chloride 0.9% 1,000 ML IV SCH (16:47)
--- NOTE | 2018-02-03 18:14 | PDOC.PN ---
- Subjective Encounter Start Date: 02/03/18 Encounter Start Time: 18:12 Mr. Palmer was seen today in follow-up of septic arthritis. He is s/p surgery to remove the infected hardware from the right shoulder, and knee. He has been having significant pain, and is on a GAS INSPECTOR pump. He is a bit drowsy as a result - Objective MAR Reviewed: Yes Vital Signs & Weight: Vital Signs (12 hours) Temp Pulse Resp Pulse Ox 02/03/18 15:55 98.6 F 93 16 98 02/03/18 08:23 69 02/03/18 08:00 98.2 F 69 16 97 Weight Admit Weight 181 lb 11.2 oz Weight 181 lb 11.2 oz I&O: 02/02/18 02/03/18 02/04/18 06:59 06:59 06:59 Intake Total 580 Balance 580 Result Diagrams: 02/03/18 05:46 02/03/18 03:30 Phys Exam - Physical Examination HEENT: PERRLA Respiratory: no wheezing, no rales, no rhonchi Cardiovascular: RRR, no significant murmur, no rub Gastrointestinal: soft, non-tender, positive bowel sounds Musculoskeletal: edema present + mild swelling in the right upper extremity, and knee Dx/Plan (1) Bacterial infection due to Clostridium perfringens Code(s): B96.7 - CLOSTRIDIUM PERFRINGENS CAUSING DISEASES CLASSD ELSWHR Status : Acute (2) Bacteremia Code(s): R78.81 - BACTEREMIA Status: Acute Comment: c.perfringens (3) HTN (hypertension) Code(s): I10 - ESSENTIAL (PRIMARY) HYPERTENSION Status: Chronic Qualifiers: Hypertension type: essential hypertension Qualified Code(s): I10 - Essential (primary) hypertension (4) Hypothyroidism Code(s): E03.9 - HYPOTHYROIDISM, UNSPECIFIED Status: Chronic Qualifiers: Hypothyroidism type: unspecified Qualified Code(s): E03.9 - Hypothyroidism , unspecified (5) Sepsis Code(s): A41.9 - SEPSIS, UNSPECIFIED ORGANISM Status: Acute Comment: clostridium perfringens (6) Septic arthritis Status: Acute Qualifiers: Septic arthritis location: multiple locations Comment: right shoulder, knee and likely right hip as well - Plan * Clostridium Perfringes Sepsis,and septic arthritis- Continue IV Meropenem * Local wound care as per Orthopedics, and continue HBOT as indicated * HTN- blood pressure is controlled * Hypothyroidism- stable * Symptom Management .
[2018-02-03] MEDS: Calcium Carbonate 500 MG ChewTAB PO PRN (22:45)
[2018-02-03] MEDS: Acetaminophen 325 MG TAB PO PRN (22:54)
[2018-02-04] MEDS: Sodium Chloride 0.9% 1,000 ML IV SCH ×2 (03:36→15:08)
[2018-02-04 04:44] LABS: #Basophils 0.1 thou/uL (0.0-0.2); #Eosinphils 0.2 thou/uL (0.0-0.7); #Lymphocytes 0.8 thou/uL (1.20-3.40); #Monocytes 0.8 thou/uL (0.11-0.59); #Neutrophils 5.3 thou/uL (1.40-6.50); %Basophils 0.8 % (0.0-1.0); %Eosinophils 2.4 % (0.0-10.0); %Lymphocytes 11.2 % (21.0-51.0); %Monocytes 11.1 % (0.0-10.0); %Neutrophils 74.5 % (42.0-75.0); Hemoglobin 8.5 g/dL (14.0-18.0); Mean Corpuscular HGB CONC 32.5 g/dL (32.0-36.0); Mean Corpuscular Hemoglobin 27.6 pg (27.0-31.0); Mean Corpuscular Volume 84.9 fl (80.0-94.0); Mean Platelet Volume 6.5 fL (7.4-10.4); Platelet Count 475 thou/uL (130-400); RBC Distribution Width 12.9 % (11.5-14.5); Red Blood Cell (RBC) Count 3.08 mill/uL (4.70-6.10); White Blood Cell (WBC) Count 7.1 thou/uL (4.8-10.8)
[2018-02-04 04:52] LABS: Anion Gap 7 mmol/L (10-20); BUN (Urea Nitrogen) 15 mg/dL (8.4-25.7); Calc. Creatinine Clearance 111 mL/min (70-130); Calcium 7.8 mg/dL (7.8-10.44); Carbon Dioxide 27 mmol/L (23-31); Chloride 103 mmol/L (98-107); Estimated GFR-MDRD Greater than 90; Glucose 124 mg/dL (83-110); Sodium 133 mmol/L (136-145)
[2018-02-04] MEDS: Levothyroxine Sodium 75 MCG TAB PO SCH (05:59)
[2018-02-04] MEDS ORDERED: Meropenem 1 GM in Sodium Chloride 0.9% 100 ML IVPB SCH (08:00)
[2018-02-04] MEDS ORDERED: MEROPENEM 1 GM/50 ML 1 GM in Admixture Fee 1 EACH IVPB SCH (08:30)
--- NOTE | 2018-02-04 08:32 | OP ---
PREOPERATIVE DIAGNOSES: 1. Hip pain, rule out sepsis. 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 TITLE OF PROCEDURE: 1. Aspiration of right hip under anesthesia with fluoroscopy. 2. Revision total knee arthroplasty with removal of all components and implantation of a Harmans #5 Triathlon femur, #4 all polyethylene Cosme Triathlon baseplate. 3. Revision of Arthrex reverse total shoulder arthroplasty with implantation of a humeral prosthesis +4x39 and a polyethylene humeral component +6 mm. SURGEON: Rickie Jose M.D. [employer] OPERATOR: Damian Tay PA-C BLOOD LOSS: 400 mL SPECIMEN: None. DRAINS: None. COMPLICATIONS: None. DESCRIPTION OF PROCEDURE: The patient was taken to the operating room where general anesthesia was i nduced. First, aspiration of the hip was performed under fluoroscopy. Multiple attempts were made. I obtained just one small drop of blood which was sent for culture, but no purulence was encountered . The right leg was prepped and draped in the usual sterile fashion. Tourniquet was inflated after exsanguination. I opened up the old incision and extended proximally and distally and had good tissu e. I recreated tissue planes, performed a medial arthrotomy. The patella was removed with an oscill ating saw, along with all cement and pegs. The femur was removed with an oscillating saw. There was no cement on the femur. I used osteotomes to supplement this and had excellent bone retention, afte r removal of the femur implant, attention was turned to the tibia, which was removed with an oscillat ing saw and osteotomes. Once again, excellent bone preservation was obtained. I did have to remove the cement from the metaphysis of the tibia. The trials were performed and sizes were chosen as desc ribed above. I let the tourniquet down. I performed copious irrigation and I performed a complete s ynovectomy. I then cemented the polyethylene tibia into place and the femur into place. I left him in about 10 degree flexion contracture in anticipation of loosening of the soft tissues with resoluti on of the infection. Retinaculum repaired with #2 Vicryl and #2 Quill, subcutaneous closed with 2-0 Vicryl, the skin was closed with 2-0 Prolene. A sterile dressing was applied. The patient was place d in knee immobilizer. The whole setup was completely taken down. A new setup was opened and he was placed in a beach chair position. Previous arthrotomy had been done through a deltopectoral split, so I performed a superior approach to the reverse total shoulder arthroplasty taking the deltoid down all the way over to the acromioclavicular joint and extending it distally past the old incision. I performed a complete synovectomy of the shoulder joint. The shoulder was dislocated. I removed the glenosphere, removed the screws holding the glenoid baseplate into the glenoid bone as sample. The r emainder of the implant was stable. Attention was turned back to the humerus where I previously castro kristin the polyethylene liner. I tried to remove the humeral implant, this also was very stable. With p ulsatile lavage irrigation and careful meticulous synovectomy, was able to obtain a very clean joint. At this point, I implanted a +4x39 metal glenosphere and a +6 polyethylene liner, obtained good sta bility with this, irrigation performed again. The deltoid was repaired back to bone and through the AC joint using #5 Ethibond sutures. A #2 Vicryl was used to close the lateral deltoid split, subcuta neous tissue closed with 2-0 Vicryl, the skin was closed with red. Sterile dressings applied. T here were no complications.
[2018-02-04] MEDS: Loratadine 10 MG TAB PO SCH (09:06)
[2018-02-04] MEDS: Metoprolol Tartrate 50 MG TAB PO SCH ×2 (09:06→20:59)
[2018-02-04] MEDS: Fluconazole 100 MG TAB PO SCH (09:06)
[2018-02-04] MEDS: Docusate 100 MG CAP PO SCH ×2 (09:06→20:59)
[2018-02-04] MEDS: Potassium Chloride 20 MEQ TAB PO SCH (09:06)
[2018-02-04] MEDS: Amlodipine 10 MG TAB PO SCH (09:06)
[2018-02-04] MEDS: Tamsulosin HCl 0.4 MG CAP PO SCH (09:07)
[2018-02-04] MEDS: Atorvastatin Calcium 40 MG TAB PO SCH (09:46)
[2018-02-04] MEDS: Heparin 5,000 UNITS/ML VIAL SC SCH ×3 (09:46→20:59)
[2018-02-04] MEDS: Citalopram 10 MG TAB PO SCH (10:02)
[2018-02-04] MEDS: fentaNYL Citrate/PF 2,000 MCG in Sodium Chloride 0.9% 60 ML IV PRN (13:08)
--- NOTE | 2018-02-04 14:28 | PDOC.PN ---
- Subjective Encounter Start Date: 02/04/18 Encounter Start Time: 14:27 Mr. Palmer was seen today in follow-up of Clostridium sepsis, and septic joint. He is much better today. Pain is much better controlled, and he has been able to tolerate breakfast and lunch without vomiting. - Objective MAR Reviewed: Yes Vital Signs & Weight: Vital Signs (12 hours) Temp Pulse Resp BP BP Pulse Ox 02/04/18 11:53 98.7 F 76 17 126/75 96 02/04/18 09:06 71 135/84 02/04/18 07:59 98.7 F 71 16 135/84 97 02/04/18 03:30 98.7 F 76 16 115/63 95 Weight Admit Weight 181 lb 11.2 oz Weight 181 lb 11.2 oz I&O: 02/03/18 02/04/18 02/05/18 06:59 06:59 06:59 Intake Total 580 1075 Output Total 3050 Balance 580 Result Diagrams: 02/04/18 03:22 02/04/18 03:22 Phys Exam - Physical Examination HEENT: PERRLA Respiratory: no wheezing, no rales, no rhonchi, clear to auscultation bilateral Cardiovascular: RRR, no significant murmur, no rub Gastrointestinal: soft, non-tender, no distention, positive bowel sounds Musculoskeletal: no edema Dx/Plan (1) Bacterial infection due to Clostridium perfringens Code(s): B96.7 - CLOSTRIDIUM PERFRINGENS CAUSING DISEASES CLASSD ELSWHR Status : Acute (2) Bacteremia Code(s): R78.81 - BACTEREMIA Status: Acute Comment: c.perfringens (3) HTN (hypertension) Code(s): I10 - ESSENTIAL (PRIMARY) HYPERTENSION Status: Chronic Qualifiers: Hypertension type: essential hypertension Qualified Code(s): I10 - Essential (primary) hypertension (4) Hypothyroidism Code(s): E03.9 - HYPOTHYROIDISM, UNSPECIFIED Status: Chronic Qualifiers: Hypothyroidism type: unspecified Qualified Code(s): E03.9 - Hypothyroidism , unspecified (5) Sepsis Code(s): A41.9 - SEPSIS, UNSPECIFIED ORGANISM Status: Acute Comment: clostridium perfringens (6) Septic arthritis Status: Acute Qualifiers: Septic arthritis location: multiple locations Comment: right shoulder, knee and likely right hip as well - Plan * HTN- blood pressure is well controlled * Clostridium Perfringes sepsis- continue Meropenem, and local wound care * Hypothyroidism- stable .
[2018-02-04] MEDS: MEROPENEM 1 GM/50 ML 1 GM in Admixture Fee 1 EACH IVPB SCH ×2 (16:08→23:52)
--- NOTE | 2018-02-04 16:09 | PRG ---
DATE OF SERVICE: 02/04/2018 SUBJECTIVE: Mr. Palmer had the surgical procedures. The right shoulder was revised at least parti ally and the right knee was totally revised. He is feeling okay. He has no respiratory symptoms or abdominal pain anymore. Dr. Varma is planning on repeat CT scan of the abdomen and pelvis to follow up the left pelvic collection. OBJECTIVE: VITAL SIGNS: Normal. GENERAL: He appears in no distress. Dressings in the right shoulder and right knee and the PICC lynette e in place. LUNGS: Clear. HEART: S1, S2, regular rate without murmurs. ABDOMEN: Soft, not distended. LABORATORY DATA: White cell count 7.1, hemoglobin 8.5, platelets 475,000. Creatinine 0.71. Samples from the hip and shoulder submitted, yet pending. Clostridium difficile was not repeated. ASSESSMENT AND DISCUSSION: Coronary artery disease with prostatectomy, a seroma and infection with p olymicrobial and anaerobic jass including Clostridium perfringens and Bacteroides and then bacteremi a with Clostridium perfringens and seeding of the joints mentioned above. The patient is status post the definitive procedure. We will continue with meropenem until I believe the mid March. After that , oral Augmentin for 3 months and after that then suppressive Pen-Vee K indefinitely.
[2018-02-05 04:10] LABS: #Basophils 0.1 thou/uL (0.0-0.2); #Eosinphils 0.4 thou/uL (0.0-0.7); #Monocytes 0.9 thou/uL (0.11-0.59); #Neutrophils 5.5 thou/uL (1.40-6.50); %Basophils 0.8 % (0.0-1.0); %Eosinophils 4.9 % (0.0-10.0); %Lymphocytes 12.6 % (21.0-51.0); %Monocytes 11.3 % (0.0-10.0); %Neutrophils 70.4 % (42.0-75.0); Mean Corpuscular HGB CONC 32.1 g/dL (32.0-36.0); Mean Corpuscular Volume 84.2 fl (80.0-94.0); Mean Platelet Volume 6.1 fL (7.4-10.4); Platelet Count 465 thou/uL (130-400); RBC Distribution Width 12.9 % (11.5-14.5); Red Blood Cell (RBC) Count 2.94 mill/uL (4.70-6.10); White Blood Cell (WBC) Count 7.8 thou/uL (4.8-10.8)
[2018-02-05 04:49] LABS: Anion Gap 6 mmol/L (10-20); BUN (Urea Nitrogen) 12 mg/dL (8.4-25.7); Calc. Creatinine Clearance 110 mL/min (70-130); Calcium 7.8 mg/dL (7.8-10.44); Carbon Dioxide 28 mmol/L (23-31); Chloride 104 mmol/L (98-107); Estimated GFR-MDRD Greater than 90; Glucose 112 mg/dL (83-110); Sodium 134 mmol/L (136-145)
[2018-02-05] MEDS: Levothyroxine Sodium 75 MCG TAB PO SCH (04:57)
[2018-02-05] MEDS: Sodium Chloride 0.9% 1,000 ML IV SCH ×2 (04:57→18:49)
[2018-02-05] MEDS: MEROPENEM 1 GM/50 ML 1 GM in Admixture Fee 1 EACH IVPB SCH ×2 (08:27→15:26)
[2018-02-05] MEDS: Atorvastatin Calcium 40 MG TAB PO SCH (09:39)
[2018-02-05] MEDS: Metoprolol Tartrate 50 MG TAB PO SCH ×2 (09:39→22:37)
[2018-02-05] MEDS: Docusate 100 MG CAP PO SCH ×2 (09:39→22:37)
[2018-02-05] MEDS: Amlodipine 10 MG TAB PO SCH (09:39)
[2018-02-05] MEDS: Fluconazole 100 MG TAB PO SCH (09:39)
[2018-02-05] MEDS: Citalopram 10 MG TAB PO SCH (09:40)
[2018-02-05] MEDS: Potassium Chloride 20 MEQ TAB PO SCH (09:40)
[2018-02-05] MEDS: Loratadine 10 MG TAB PO SCH (09:40)
[2018-02-05] MEDS: Heparin 5,000 UNITS/ML VIAL SC SCH ×3 (09:47→23:38)
[2018-02-05] MEDS: Tamsulosin HCl 0.4 MG CAP PO SCH (09:49)
[2018-02-05] MEDS: fentaNYL Citrate/PF 2,000 MCG in Sodium Chloride 0.9% 60 ML IV PRN (10:20)
--- NOTE | 2018-02-05 14:25 | PRG ---
DATE OF SERVICE: 02/05/2018 SUBJECTIVE: Sly is now postop day #3 from a staged excisional arthroplasty of the right shoulder and right knee. He has a hybrid all-poly right knee and we did a glenosphere poly swap on the right jessica ulder. Understanding that he has Clostridium perfringens as a solid isolate from both joints and he has been on meropenem now since his admission. He has been through 3 surgeries now in the last 2 wee ks and I have followed his laboratory and his hemoglobin has been trending down precipitously from an admission hemoglobin of 12 down to 8 today. Also, his serum albumin was 2.4 about a week ago have n ot checked it recently. Overall, his level of energy is diminished as well and he feels washed out. He was able to ambulate with physical therapy I believe greater than 100 feet, but he is tired out v elizabeth quickly. OBJECTIVE: GENERAL: Patient is alert, conversive, but he does appear tired. Color is not so great. VITAL SIGNS: Temperature 98.3, pulse 74, respiratory rate 16, and O2 saturation 96% on room air, blo od pressure 107/64. He is taking all of his blood pressure agents. LABORATORY DATA: Hemoglobin and hematocrit 8.0 and 24.8. IMPRESSION: 1. Polyarticular symmetric septic arthritis, right shoulder and right knee status post excisional ar throplasty, stage I, right shoulder and knee. 2. Postoperative hemorrhagic anemia. 3. Hypoalbuminemia. PLAN: We will go ahead and order 2 units packed red blood cells transfused today. Talked to Dr. Nataliya jimenez about this. Regarding the patient's level of energy, precipitous anemia and the need for good ti ssue healing, we should probably intervene sooner than later and not let him become grossly symptomat ic. I have ordered the blood, discussed this with Dr. Jose. We will transfuse today.
--- NOTE | 2018-02-05 14:45 | PDOC.PN ---
- Subjective Encounter Start Date: 02/05/18 Encounter Start Time: 14:41 Mr. Palmer was seen today in follow-up. He was walking in the [place] with PT. He say he feels a bit fatigued. - Objective MAR Reviewed: Yes Vital Signs & Weight: Vital Signs (12 hours) Temp Pulse Resp BP BP Pulse Ox 02/05/18 12:11 98.3 F 74 16 107/64 96 02/05/18 09:39 74 121/74 02/05/18 08:07 98.5 F 74 16 121/74 95 02/05/18 07:45 98.5 F 74 16 95 02/05/18 04:50 98.6 F 68 16 109/73 96 Weight Admit Weight 181 lb 11.2 oz Weight 181 lb 11.2 oz I&O: 02/04/18 02/05/18 02/06/18 06:59 06:59 06:59 Intake Total 1075 2900 Output Total 3050 4500 Balance -1974 -1599 Result Diagrams: 02/05/18 03:28 02/05/18 03:28 Phys Exam - Physical Examination HEENT: PERRLA Respiratory: no wheezing, no rales, no rhonchi, clear to auscultation bilateral Cardiovascular: RRR, no significant murmur, no rub Gastrointestinal: soft, non-tender, positive bowel sounds Musculoskeletal: no edema Dx/Plan (1) Bacterial infection due to Clostridium perfringens Code(s): B96.7 - CLOSTRIDIUM PERFRINGENS CAUSING DISEASES CLASSD ELSWHR Status : Acute (2) Bacteremia Code(s): R78.81 - BACTEREMIA Status: Acute Comment: c.perfringens (3) HTN (hypertension) Code(s): I10 - ESSENTIAL (PRIMARY) HYPERTENSION Status: Chronic Qualifiers: Hypertension type: essential hypertension Qualified Code(s): I10 - Essential (primary) hypertension (4) Hypothyroidism Code(s): E03.9 - HYPOTHYROIDISM, UNSPECIFIED Status: Chronic Qualifiers: Hypothyroidism type: unspecified Qualified Code(s): E03.9 - Hypothyroidism , unspecified (5) Sepsis Code(s): A41.9 - SEPSIS, UNSPECIFIED ORGANISM Status: Acute Comment: clostridium perfringens (6) Septic arthritis Status: Acute Qualifiers: Septic arthritis location: multiple locations Comment: right shoulder, knee and likely right hip as well - Plan * Clostridium Perfringes sepsis with septic joints- continue Meropenem and will need until mid March * Anemia- agree with transfusion due to fatigue * HTN- blood pressure is stable * Deconditioning- continue PT/OT. * Can begin considering discharge planning- ? Rehab
[2018-02-05] MEDS ORDERED: Zolpidem Tartrate 5 MG TAB PO PRN (20:43)
[2018-02-05 22:07] LABS: Hemoglobin 8.8 g/dL (14.0-18.0); Platelet Count 444 thou/uL (130-400)
[2018-02-06] MEDS: MEROPENEM 1 GM/50 ML 1 GM in Admixture Fee 1 EACH IVPB SCH ×3 (01:13→16:09)
[2018-02-06] MEDS: diphenhydrAMINE 50 MG/ML VIAL IM/IV PRN ×2 (01:13→22:18)
[2018-02-06 04:21] LABS: #Eosinphils 0.3 thou/uL (0.0-0.7); #Lymphocytes 1.2 thou/uL (1.20-3.40); #Monocytes 0.7 thou/uL (0.11-0.59); #Neutrophils 5.2 thou/uL (1.40-6.50); %Basophils 0.7 % (0.0-1.0); %Eosinophils 3.5 % (0.0-10.0); %Lymphocytes 15.9 % (21.0-51.0); %Monocytes 9.6 % (0.0-10.0); %Neutrophils 70.3 % (42.0-75.0); Hemoglobin 8.2 g/dL (14.0-18.0); Mean Corpuscular Volume 84.3 fl (80.0-94.0); Platelet Count 452 thou/uL (130-400); RBC Distribution Width 12.9 % (11.5-14.5); Red Blood Cell (RBC) Count 3.03 mill/uL (4.70-6.10); White Blood Cell (WBC) Count 7.3 thou/uL (4.8-10.8)
[2018-02-06 04:34] LABS: Anion Gap 8 mmol/L (10-20); BUN (Urea Nitrogen) 8 mg/dL (8.4-25.7); Calc. Creatinine Clearance 110 mL/min (70-130); Calcium 8.2 mg/dL (7.8-10.44); Carbon Dioxide 29 mmol/L (23-31); Chloride 103 mmol/L (98-107); Estimated GFR-MDRD Greater than 90; Glucose 108 mg/dL (83-110); Potassium 3.8 mmol/L (3.5-5.1); Sodium 136 mmol/L (136-145)
[2018-02-06] MEDS: Levothyroxine Sodium 75 MCG TAB PO SCH (06:45)
[2018-02-06] MEDS ORDERED: HYDROcodone/Acetaminophen 10/325 mg Tablet PO PRN (08:28)
[2018-02-06] MEDS ORDERED: traMADol HCl 50 MG TAB PO PRN (08:30)
[2018-02-06] MEDS: Loratadine 10 MG TAB PO SCH (09:05)
[2018-02-06] MEDS: Atorvastatin Calcium 40 MG TAB PO SCH (09:05)
[2018-02-06] MEDS: Amlodipine 10 MG TAB PO SCH (09:06)
[2018-02-06] MEDS: Potassium Chloride 20 MEQ TAB PO SCH (09:06)
[2018-02-06] MEDS: Docusate 100 MG CAP PO SCH ×2 (09:07→22:35)
[2018-02-06] MEDS: Tamsulosin HCl 0.4 MG CAP PO SCH (09:07)
[2018-02-06] MEDS: Fluconazole 100 MG TAB PO SCH (09:07)
[2018-02-06] MEDS: Metoprolol Tartrate 50 MG TAB PO SCH ×2 (09:07→22:18)
[2018-02-06] MEDS: Heparin 5,000 UNITS/ML VIAL SC SCH ×3 (09:08→22:18)
[2018-02-06] MEDS: Citalopram 10 MG TAB PO SCH (09:08)
[2018-02-06] MEDS: HYDROcodone/Acetaminophen 10/325 mg Tablet PO PRN ×2 (10:38→22:17)
--- NOTE | 2018-02-06 14:31 | PDOC.PN ---
- Subjective Encounter Start Date: 02/06/18 Encounter Start Time: 14:30 omega Palmer was seen today in follow-up of Clostridium Perfringes sepsis. He says he feels better today, not as weak. He says the pain is well controlled in his shoulder and knee. - Objective MAR Reviewed: Yes Vital Signs & Weight: Vital Signs (12 hours) Temp Pulse Pulse Resp BP BP BP 02/06/18 12:45 98.3 F 76 20 106/69 02/06/18 12:27 98.5 F 71 20 110/69 02/06/18 11:50 98.6 F 72 16 106/67 02/06/18 09:06 76 120/76 02/06/18 08:00 98.5 F 76 20 02/06/18 07:40 98.2 F 76 18 120/76 02/06/18 04:20 98.8 F 79 16 132/73 Pulse Ox 02/06/18 12:45 95 02/06/18 12:27 96 02/06/18 11:50 94 L 02/06/18 09:06 02/06/18 08:00 96 02/06/18 07:40 93 L 02/06/18 04:20 96 Weight Admit Weight 181 lb 11.2 oz Weight 181 lb 11.2 oz I&O: 02/05/18 02/06/18 02/07/18 06:59 06:59 06:59 Intake Total 2900 2300 1960 Output Total 4500 2400 2450 Balance -1600 -100 -490 Result Diagrams: 02/06/18 03:54 02/06/18 03:54 Phys Exam - Physical Examination HEENT: PERRLA Respiratory: no wheezing, no rales, no rhonchi, clear to auscultation bilateral Cardiovascular: RRR, no significant murmur, no rub Gastrointestinal: soft, non-tender, no distention, positive bowel sounds Musculoskeletal: edema present trace pedal edema on the right lower extremity Dx/Plan (1) Bacterial infection due to Clostridium perfringens Code(s): B96.7 - CLOSTRIDIUM PERFRINGENS CAUSING DISEASES CLASSD ELSWHR Status : Acute (2) Bacteremia Code(s): R78.81 - BACTEREMIA Status: Acute Comment: c.perfringens (3) HTN (hypertension) Code(s): I10 - ESSENTIAL (PRIMARY) HYPERTENSION Status: Chronic Qualifiers: Hypertension type: essential hypertension Qualified Code(s): I10 - Essential (primary) hypertension (4) Hypothyroidism Code(s): E03.9 - HYPOTHYROIDISM, UNSPECIFIED Status: Chronic Qualifiers: Hypothyroidism type: unspecified Qualified Code(s): E03.9 - Hypothyroidism , unspecified (5) Sepsis Code(s): A41.9 - SEPSIS, UNSPECIFIED ORGANISM Status: Acute Comment: clostridium perfringens (6) Septic arthritis Status: Acute Qualifiers: Septic arthritis location: multiple locations Comment: right shoulder, knee and likely right hip as well - Plan * Clostridium Perfringes Sepsis and septic knee and shoulder joint- continue Meropenem * Continue local wound care * Anemia- due to acute blood loss- he is receiving a second unit of blood- will check stool for occult blood, and will limit blood draws to only what is absolutely necessary * HTN- blood pressure is stable * Continue PT/OT * Discharge planning is in progress.
[2018-02-06] MEDS: Sodium Chloride 0.9% 1,000 ML IV SCH ×3 (15:25→22:35)
[2018-02-06] MEDS: traMADol HCl 50 MG TAB PO PRN (18:56)
[2018-02-07] MEDS: MEROPENEM 1 GM/50 ML 1 GM in Admixture Fee 1 EACH IVPB SCH ×4 (00:29→23:47)
[2018-02-07] MEDS: HYDROcodone/Acetaminophen 10/325 mg Tablet PO PRN ×2 (03:12→16:01)
[2018-02-07] MEDS: diphenhydrAMINE 25 MG CAP PO PRN (03:13)
[2018-02-07] MEDS: Levothyroxine Sodium 75 MCG TAB PO SCH (05:17)
[2018-02-07 06:37] LABS: Hemoglobin 9.4 g/dL (14.0-18.0); Platelet Count 452 thou/uL (130-400)
[2018-02-07] MEDS: Tamsulosin HCl 0.4 MG CAP PO SCH (08:49)
[2018-02-07] MEDS: Potassium Chloride 20 MEQ TAB PO SCH (08:49)
[2018-02-07] MEDS: Loratadine 10 MG TAB PO SCH (08:49)
[2018-02-07] MEDS: Amlodipine 10 MG TAB PO SCH (08:49)
[2018-02-07] MEDS: Atorvastatin Calcium 40 MG TAB PO SCH (08:49)
[2018-02-07] MEDS: Metoprolol Tartrate 50 MG TAB PO SCH ×2 (08:49→21:22)
[2018-02-07] MEDS: Docusate 100 MG CAP PO SCH ×2 (08:49→21:22)
[2018-02-07] MEDS: Fluconazole 100 MG TAB PO SCH (08:49)
[2018-02-07] MEDS: Citalopram 10 MG TAB PO SCH (08:50)
[2018-02-07] MEDS: Heparin 5,000 UNITS/ML VIAL SC SCH ×3 (08:50→21:30)
[2018-02-07 10:45] LABS: White Blood Cell (WBC) Count 7.1 thou/uL (4.8-10.8)
[2018-02-07] MEDS: Sodium Chloride 0.9% 1,000 ML IV SCH ×2 (12:38→21:21)
[2018-02-07] MEDS ORDERED: ALPRAZolam 0.25 MG TAB PO SCH (13:00)
--- NOTE | 2018-02-07 16:20 | PDOC.PN ---
- Subjective Encounter Start Date: 02/07/18 Encounter Start Time: 16:19 Mr. Palmer was seen today in follow-up of Clostridium Perfringes sepsis. He says he is feeling a little better today. No complaints.The pain in his shoulder and knee is tolerable. - Objective MAR Reviewed: Yes Vital Signs & Weight: Vital Signs (12 hours) Temp Pulse Resp BP BP Pulse Ox 02/07/18 11:34 97.8 F 70 18 112/67 93 L 02/07/18 08:49 74 132/77 02/07/18 08:30 98.7 F 74 16 98 02/07/18 07:55 98.7 F 74 16 132/77 98 Weight Admit Weight 181 lb 11.2 oz Weight 181 lb 11.2 oz I&O: 02/06/18 02/07/18 02/08/18 06:59 06:59 06:59 Intake Total 2300 3385 1720 Output Total 2400 5550 1650 Balance -100 -2165 70 Result Diagrams: 02/07/18 06:32 02/06/18 03:54 Phys Exam - Physical Examination HEENT: PERRLA Respiratory: no wheezing, no rales, no rhonchi, clear to auscultation bilateral Cardiovascular: RRR, no significant murmur, no rub Gastrointestinal: soft, non-tender, positive bowel sounds Musculoskeletal: no edema Dx/Plan (1) Bacterial infection due to Clostridium perfringens Code(s): B96.7 - CLOSTRIDIUM PERFRINGENS CAUSING DISEASES CLASSD ELSWHR Status : Acute (2) Bacteremia Code(s): R78.81 - BACTEREMIA Status: Acute Comment: c.perfringens (3) HTN (hypertension) Code(s): I10 - ESSENTIAL (PRIMARY) HYPERTENSION Status: Chronic Qualifiers: Hypertension type: essential hypertension Qualified Code(s): I10 - Essential (primary) hypertension (4) Hypothyroidism Code(s): E03.9 - HYPOTHYROIDISM, UNSPECIFIED Status: Chronic Qualifiers: Hypothyroidism type: unspecified Qualified Code(s): E03.9 - Hypothyroidism , unspecified (5) Sepsis Code(s): A41.9 - SEPSIS, UNSPECIFIED ORGANISM Status: Acute Comment: clostridium perfringens (6) Septic arthritis Status: Acute Qualifiers: Septic arthritis location: multiple locations Comment: right shoulder, knee and likely right hip as well - Plan * Clostridium Perfringes sepsis with septic arthritis- continue Meropenem * HTN- blood pressure is stable * Continue HBOT as indicated * Continue PT/OT * awaiting penitentiary placement.
[2018-02-07] MEDS: traMADol HCl 50 MG TAB PO PRN (21:28)
[2018-02-07] MEDS: tiZANidine HCl 4 MG TAB PO PRN (21:29)
[2018-02-08] MEDS: Levothyroxine Sodium 75 MCG TAB PO SCH (06:46)
[2018-02-08] MEDS: Potassium Chloride 20 MEQ TAB PO SCH (08:36)
[2018-02-08] MEDS: Atorvastatin Calcium 40 MG TAB PO SCH (08:36)
[2018-02-08] MEDS: Citalopram 10 MG TAB PO SCH (08:36)
[2018-02-08] MEDS: Loratadine 10 MG TAB PO SCH (08:37)
[2018-02-08] MEDS: Docusate 100 MG CAP PO SCH ×2 (08:37→20:25)
[2018-02-08] MEDS: Metoprolol Tartrate 50 MG TAB PO SCH ×2 (08:37→20:25)
[2018-02-08] MEDS: Tamsulosin HCl 0.4 MG CAP PO SCH (08:38)
[2018-02-08] MEDS: Fluconazole 100 MG TAB PO SCH (08:38)
[2018-02-08] MEDS: Amlodipine 10 MG TAB PO SCH (08:38)
[2018-02-08] MEDS: MEROPENEM 1 GM/50 ML 1 GM in Admixture Fee 1 EACH IVPB SCH (08:39)
[2018-02-08] MEDS: Heparin 5,000 UNITS/ML VIAL SC SCH ×3 (08:39→20:26)
--- NOTE | 2018-02-08 12:43 | PDOC.PN ---
- Subjective Encounter Start Date: 02/08/18 Encounter Start Time: 12:39 Mr. Palmer was seen today in follow-up of Clostridium Perfringes sepsis. He does not have complaints, but he has periodic episodes of confusion, and he has been twitching off and on. - Objective MAR Reviewed: Yes Vital Signs & Weight: Vital Signs (12 hours) Temp Pulse Resp BP BP BP Pulse Ox 02/08/18 11:45 98.0 F 71 18 115/67 96 02/08/18 08:38 68 122/80 02/08/18 08:00 98.5 F 68 16 122/80 98 02/08/18 03:20 98.4 F 65 18 114/72 99 Weight Admit Weight 181 lb 11.2 oz Weight 181 lb 11.2 oz I&O: 02/07/18 02/08/18 02/09/18 06:59 06:59 06:59 Intake Total 3385 3630 Output Total 5550 5700 Balance -5 -2069 Result Diagrams: 02/07/18 06:32 02/06/18 03:54 Phys Exam - Physical Examination HEENT: PERRLA Respiratory: no wheezing, no rales, no rhonchi, clear to auscultation bilateral Cardiovascular: RRR, no significant murmur, no rub Gastrointestinal: soft, non-tender, no distention, positive bowel sounds Musculoskeletal: no edema Neurological: non-focal Dx/Plan (1) Bacterial infection due to Clostridium perfringens Code(s): B96.7 - CLOSTRIDIUM PERFRINGENS CAUSING DISEASES CLASSD ELSWHR Status : Acute (2) Bacteremia Code(s): R78.81 - BACTEREMIA Status: Acute Comment: c.perfringens (3) HTN (hypertension) Code(s): I10 - ESSENTIAL (PRIMARY) HYPERTENSION Status: Chronic Qualifiers: Hypertension type: essential hypertension Qualified Code(s): I10 - Essential (primary) hypertension (4) Hypothyroidism Code(s): E03.9 - HYPOTHYROIDISM, UNSPECIFIED Status: Chronic Qualifiers: Hypothyroidism type: unspecified Qualified Code(s): E03.9 - Hypothyroidism , unspecified (5) Sepsis Code(s): A41.9 - SEPSIS, UNSPECIFIED ORGANISM Status: Acute Comment: clostridium perfringens (6) Septic arthritis Status: Acute Qualifiers: Septic arthritis location: multiple locations Comment: right shoulder, knee and likely right hip as well - Plan * Delirium- this has been off and on since surgery- could be due to the effects of his overall illness, and older age- however, will check, a serum ammonia, ( due to the twitching, ) and an ABG to look at his CO2 level, and a TSH and free T4. I have also spoken with Dr. Roy regarding Meropenem, if this could be a possible cause. Will also remove the Lee catheter * HTN- blood pressure is stable * Arrangements for Outpatient antibiotics are pending .
[2018-02-08 13:44] LABS: CO2 Tension 36.8 mmHg (35.0-45.0); pH, Arterial 7.48 (7.35-7.45)
[2018-02-08 13:45] LABS: Actual Bicarbonate (HCO3a) 26.6 mEq/L (22-26); Calcium, Ionized 1.2 mmol/L (1.12-1.30); Hematocrit-ABG 29.4 % (42.0-52.0); O2 Tension (PaO2) 84.7 mmHg (80.0-100.0); Puncture Site RRA
--- NOTE | 2018-02-08 13:59 | PRG ---
DATE OF SERVICE: 02/08/2018 HISTORY: Mr. Palmer has developed delirium. Denies any headaches, no respiratory symptoms or abdo montrell pain. Mild pain at the operative sites in the joints. PHYSICAL EXAMINATION: VITAL SIGNS: Normal. GENERAL: He is a little bit confused, establishes eye contact, but sometimes has confabulatory thoug hts and delusional thinking process. HEENT: The ocular movements are conjugate. LUNGS: Clear. EXTREMITIES: The right shoulder and right knee have the usual postoperative appearance. No abnormal ities noted. He moves extremities equally. ABDOMEN: Soft, not distended. LABORATORY: White cell count 7.1, hemoglobin 9.4, platelets 452. Slight lymphocytopenia. Creatinin e 0.72, sodium 136, potassium 3.8. CRP was 21.35, which is down from previous values. Microbiology negative latest cultures from the infected areas. ASSESSMENT AND DISCUSSION: Coronary disease, prostatectomy and seroma with infection by Clostridium perfringens and Bacteroides. The possibility of communication with bowel had been discussed in the p ast; however, no such evidence was demonstrated by the imaging studies performed. Could he have had transient bowel involvement and then sealing of the opening in the bowel is something to be concerned with. For example a small area of enterotomy that spontaneously sealed. Right now he continues to improve from the inflammatory process; however, he has developed delirium which is very common in hos pitalized patients. Meropenem is not usually associated with delirium, but I will go ahead and disco ntinue it. Switch him to Rocephin plus oral Flagyl which will also facilitate discharge planning. His delirium must be multifactorial and other potential precipitating factors to be evaluated.
[2018-02-08 14:16] LABS: Free T4 (Free Thyroxine) 1.07 ng/dL (0.70-1.48); Thyroid Stimulating Hormone 1.9568 uIU/mL (0.35-4.94)
[2018-02-08] MEDS: metroNIDAZOLE 500 MG TAB PO SCH ×2 (14:56→20:25)
[2018-02-08] MEDS: cefTRIAXone\\ROCEPHIN 2 GM in Sodium Chloride 0.9% 100 ML IVPB SCH (14:57)
[2018-02-08] MEDS ORDERED: ISOVUE-370 76%-LOCM 1 ML ONE (15:02)
[2018-02-08] MEDS: Sodium Chloride 0.9% 1,000 ML IV SCH (18:20)
--- NOTE | 2018-02-08 20:17 | CT ---
CT OF PELVIS PERFORMED WITH INTRAVENOUS CONTRAST ENHANCEMENT: 02/08/18 HISTORY: Followup of abscess drainage. COMPARISON: 01/25/18 and 01/23/18 studies. Partially visualized right renal cysts are again seen. A loculated fluid collection adjacent to the l eft obturator internis is noted. It has slightly decreased in size as compared to the 01/23/18 study b ut still measures approximately 6 cm in diameter. Causes some minimal displacement of the bladder to the right. There is a moderate amount of stool present in the rectum region. A right hip prosthesis i s present. IMPRESSION: Persistent loculated fluid collection along the medial aspect of the right acetabulum just along the obturator internis muscle. It measures 6 cm in diameter. It is slightly decreased in size as compared to the previous 01/23/18 study. POS: [facility]
[2018-02-08] MEDS: HYDROcodone/Acetaminophen 10/325 mg Tablet PO PRN (20:23)
[2018-02-09] MEDS: Levothyroxine Sodium 75 MCG TAB PO SCH (05:02)
[2018-02-09] MEDS: Sodium Chloride 0.9% 1,000 ML IV SCH (05:11)
[2018-02-09 08:18] VITALS: BP 113/69; TEMP 98
[2018-02-09] MEDS: Amlodipine 10 MG TAB PO SCH (08:43)
[2018-02-09] MEDS: Metoprolol Tartrate 50 MG TAB PO SCH (08:43)
[2018-02-09] MEDS: metroNIDAZOLE 500 MG TAB PO SCH (08:43)
[2018-02-09] MEDS: Potassium Chloride 20 MEQ TAB PO SCH (08:43)
[2018-02-09] MEDS: Tamsulosin HCl 0.4 MG CAP PO SCH (08:43)
[2018-02-09] MEDS: Docusate 100 MG CAP PO SCH (08:43)
[2018-02-09] MEDS: Atorvastatin Calcium 40 MG TAB PO SCH (08:44)
[2018-02-09] MEDS: Heparin 5,000 UNITS/ML VIAL SC SCH (08:44)
[2018-02-09] MEDS: Citalopram 10 MG TAB PO SCH (08:44)
[2018-02-09] MEDS: Fluconazole 100 MG TAB PO SCH (08:44)
[2018-02-09] MEDS: Loratadine 10 MG TAB PO SCH (08:44)
[2018-02-09] MEDS: cefTRIAXone\\ROCEPHIN 2 GM in Sodium Chloride 0.9% 100 ML IVPB SCH (12:26)
[2018-02-09] MEDS: HYDROcodone/Acetaminophen 10/325 mg Tablet PO PRN (12:27)
--- NOTE | 2018-02-09 13:59 | DIS ---
DATE OF ADMISSION: 01/23/2018 DATE OF DISCHARGE: 02/09/2018 DISCHARGE DISPOSITION: Home. PRIMARY CARE PROVIDER: Srinivas Dixon M.D. FINAL DIAGNOSES: Septic arthritis with Clostridium perfringens in multiple joints, hypertension, cor onary artery disease, anemia of acute disease, delirium. DISCHARGE MEDICATIONS: Prevacid 15 mg a day, tramadol 50 mg p.o. q.4 hours p.r.n., Flomax 0.4 mg a d ay, Benicar 40 mg a day, levothyroxine 75 mg a day, amlodipine/atorvastatin 10/40 once a day, Flagyl 500 mg p.o. t.i.d., Rocephin 2 grams IV piggyback q.24 hours, metoprolol 50 mg p.o. b.i.d., Celexa 10 mg a day, potassium chloride 20 mEq a day. ALLERGIES: NIACIN. PENDING AT THE TIME OF DISCHARGE: Nothing. CODE STATUS: FULL. HOSPITAL COURSE: The patient admitted to the hospital with nausea, vomiting, diarrhea, fever to 102. 9. Blood and urine cultures were obtained. Brain MRI, no acute process. Abdomen and pelvis CT flui d collection in left lower quadrant suggested postoperative fluid collection measured 6 x 8 cm. Consultations were obtained with Dr. Jamie Varma, Dr. Tremayne Roy, [facility] [place] [facility], Dr. Surjit Pereira, ENT. Shoulder x-ray revealed soft tissue air in the right shoulder. PROCEDURES DONE: Patient underwent arthrocentesis of the right shoulder 01/25, underwent CT-guided d rainage of the lower quadrant abdominal fluid. On 01/25, patient had an incision and drainage of his right shoulder. Pertinent cultures, venous blood of his both arms grew Clostridium perfringens. Th e synovial fluid of his shoulder and knee grew Clostridium perfringens. The abdominal abscess grew C lostridium perfringens and Bacteroides thetaiotaomicron. On 01/25, Dr. Tremayne Roy saw the patient . The patient has been put on meropenem and vancomycin. PICC line was ordered, 01/26. Followup MRI was again negative. Echocardiogram normal. The patient was eventually transitioned to Rocephin 2 g claudia daily, metronidazole 500 mg p.o. twice a day at the time of discharge. Dr. Tremayne Roy has or dered the antibiotics and will follow them as an outpatient. He will determine when they need to be stopped. On 01/29/2018, patient had incision and drainage of right shoulder with antibiotic bead jeromy cement, incision and drainage of right knee arthroplasty with antibiotic bead placement. On 01/31, a PICC line was placed. At this point, the patient is being discharged home on IV Rocephin and p.o. Flagyl for his Clostridium perfringens infection. He will be followed up with Dr. Roy in 1-2 weeks . Follow up with his PCP and followed up with Dr. Jose for his septic arthritis. Home health has been ordered for physical therapy, wound care. PICC line care and IV antibiotics. This has been arr anged through Dr. Tremayne Roy. PERTINENT LABORATORY DATA: During his hospital stay, his initial white count was 16,500, hemoglobin 12.6, platelet count 209,000. His white count has been normal since that time and has been monitored on a daily basis. His C-reactive protein is 21.3. His chemistries, comp metabolic profile was norm al except for blood sugar 129. This was followed. His initial C-reactive protein was 34.74 and is d ecreasing. He had some episodes of delirium. These have resolved. Ammonia was ordered which was 16 . Thyroid function tests were ordered, which were normal. At the present time, the patient is marke dly improved, being discharged on IV antibiotics for the aforementioned followup. Thirty-five minutes spent preparing this discharge.
--- NOTE | 2018-02-16 08:33 | PQF ---
DAVID VALENTINE, [facility] [id number] CLINICAL DOCUMENTATION CLARIFICATION FORM: POST DISCHARGE Addendum to original discharge summary date: 02/09/2018 DATE: 02/16/18 ATTN: Dr. Aguillon Please exercise your independent, professional judgment in responding to the clarification form. 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 Thank You. CLINICAL INDICATORS - SIGNS / SYMPTOMS / LABS Per H&P: White count 16,500. Fever to 102.9. Per blood culture: Positive blood cultures for Clostridium Perfringens. Per discharge summary: Synovial fluid right shoulder/right knee grew Clostridium Perfringens. Per discharge summary: Abdominal abscess grew Clostridium Perfringens and Bacteroides Thetaitaomicron. Per discharge summary: Septic arthritis with Clostridium Perfringens in multiple joints. Per Hospitalist progress notes: Sepsis. Bacteremia c. perfringens. RISK FACTORS Infected right total shoulder replacement. Infected right toal knee replacement. Abdominal abscess. TREATMENTS: (per progress/consult notes) Revision right knee/right shoulder replacements. Drainage abdominal abscess. Blood/wound cultures. ID Consult IV Vancomycin. IV Meropenem. IV Rocephin. IV Fluids (This form is maintained as a part of the permanent medical record) 2014 [employer]. All Rights Reserved [email or web address] [phone] [email or web address]
== END 2018-02-09 14:50 | disposition home health service (06) | DRG 853 ==
LOC: ERS 10:44 → T4-A 17:20 → OBSVTOIN 01-24 08:56 → SJJU 02-03 16:16
PROVIDERS: ADMIT Internal Medicine; ATTEND Internal Medicine
PROC: 0R9J3ZZ Drainage of Right Shoulder Joint, Percutaneous Approach (ICD-10-PCS; 2018-01-24)
PROC: 0S9C3ZZ Drainage of Right Knee Joint, Percutaneous Approach (ICD-10-PCS; 2018-01-24)
PROC: 3E1U38Z Irrigation of Joints using Irrigating Substance, Percutaneous Approach (ICD-10-PCS; 2018-01-24)
PROC: 3E1U38Z Irrigation of Joints using Irrigating Substance, Percutaneous Approach (ICD-10-PCS; 2018-01-24)
PROC: 0W9J30Z Drainage of Pelvic Cavity with Drainage Device, Percutaneous Approach (ICD-10-PCS; 2018-01-25)
PROC: 3E0U029 Introduction of Other Anti-infective into Joints, Open Approach (ICD-10-PCS; 2018-01-29)
PROC: 3E0U029 Introduction of Other Anti-infective into Joints, Open Approach (ICD-10-PCS; 2018-01-29)
PROC: 02HV33Z Insertion of Infusion Device into Superior Vena Cava, Percutaneous Approach (ICD-10-PCS; 2018-01-31)
PROC: 0S993ZZ Drainage of Right Hip Joint, Percutaneous Approach (ICD-10-PCS; principal; 2018-02-03)
PROC: 0SPC0JZ Removal of Synthetic Substitute from Right Knee Joint, Open Approach (ICD-10-PCS; 2018-02-03)
PROC: 0SRC0J9 Replacement of Right Knee Joint with Synthetic Substitute, Cemented, Open Approach (ICD-10-PCS; 2018-02-03)
PROC: 0RRJ0J7 Replacement of Right Shoulder Joint with Synthetic Substitute, Glenoid Surface, Open Approach (ICD-10-PCS; 2018-02-03)
PROC: 0RPJ0JZ Removal of Synthetic Substitute from Right Shoulder Joint, Open Approach (ICD-10-PCS; 2018-02-03)
PROC: 099570Z Drainage of Right Middle Ear with Drainage Device, Via Natural or Artificial Opening (ICD-10-PCS; 2018-02-03)
PROC: 099670Z Drainage of Left Middle Ear with Drainage Device, Via Natural or Artificial Opening (ICD-10-PCS; 2018-02-03)
DX: A41.89 Other specified sepsis (principal); K65.1 Peritoneal abscess; T84.53XA Infection and inflammatory reaction due to internal right knee prosthesis, initial encounter; D62 Acute posthemorrhagic anemia; T84.59XA Infection and inflammatory reaction due to other internal joint prosthesis, initial encounter; F05 Delirium due to known physiological condition; I10 Essential (primary) hypertension; E03.9 Hypothyroidism, unspecified; K21.9 Gastro-esophageal reflux disease without esophagitis; I25.10 Atherosclerotic heart disease of native coronary artery without angina pectoris; E78.5 Hyperlipidemia, unspecified; E88.09 Other disorders of plasma-protein metabolism, not elsewhere classified; H69.83 Other specified disorders of Eustachian tube, bilateral; T70.0XXA Otitic barotrauma, initial encounter; B96.7 Clostridium perfringens [C. perfringens] as the cause of diseases classified elsewhere; I25.2 Old myocardial infarction; Z85.46 Personal history of malignant neoplasm of prostate; Z90.79 Acquired absence of other genital organ(s); Z96.641 Presence of right artificial hip joint; Z96.653 Presence of artificial knee joint, bilateral; Z88.8 Allergy status to other drugs, medicaments and biological substances; Z91.018 Allergy to other foods; Z96.611 Presence of right artificial shoulder joint; Y83.1 Surgical operation with implant of artificial internal device as the cause of abnormal reaction of the patient, or of later complication, without mention of misadventure at the time of the procedure
CPT/HCPCS: 36415; 36430; 36569; 49020; 70551; 70553; 72156; 74176; 74177; 76000; 77012; 80048; 80053; 80074; 80202; 81003; 81015; 82140; 82274; 82570; 82805; 82945; 83690; 84157; 84439; 84443; 84484; 84540; 84560; 85014; 85018; 85025; 85048; 85049; 85060; 85610; 85652; 85730; 86140; 86850; 86900; 86901; 87040; 87045; 87046; 87070; 87076; 87086; 87205; 87324; 87389; 87449; 87899; 89051; 89060; 93005; 93306; 96360; 96374; A4216; C1713; C1729; C1751; C1776; C9113; G0277; G8978-GP-CK; G8979-GP-CI; G8979-GP-CJ; G8987-GO-CK; G8988-GO-CI; J0131; J0670; J0696; J1100; J1170; J1200; J1644; J1885; J2001; J2185; J2250; J2270; J2405; J2704; J3010; J3260; J3370; J7050; P9016; Q0162; S0028

== ENCOUNTER 2018-04-21 13:56 | Outpatient (CLI) | payer MEDICARE | END 2018-04-21 13:57 | disposition home or self-care (01) | LOC: CTENTCT 13:56 | PROVIDERS: ATTEND Otolaryngology Plastic Surgery within the Head & Neck | DX: J32.9 Chronic sinusitis, unspecified (principal) | CPT/HCPCS: 70486 ==

== ENCOUNTER 2018-07-29 13:48 | Observation (INO) | payer MEDICARE ==
[2018-07-29] MEDS ORDERED: Ondansetron PF 4 MG/2 ML Vial ONE ×2 (14:54→18:46)
[2018-07-29 15:03] LABS: #Lymphocytes 0.8 thou/uL (1.20-3.40); #Monocytes 0.2 thou/uL (0.11-0.59); #Neutrophils 6.3 thou/uL (1.40-6.50); %Basophils 0.4 % (0.0-1.0); %Eosinophils 0.7 % (0.0-10.0); %Lymphocytes 11.1 % (21.0-51.0); %Neutrophils 84.9 % (42.0-75.0); Hemoglobin 15.1 g/dL (14.0-18.0); Mean Corpuscular HGB CONC 31.8 g/dL (32.0-36.0); Mean Corpuscular Hemoglobin 28.6 pg (27.0-31.0); Mean Platelet Volume 7.2 fL (7.4-10.4); Platelet Count 238 thou/uL (130-400); RBC Distribution Width 13.5 % (11.5-14.5); Red Blood Cell (RBC) Count 5.28 mill/uL (4.70-6.10); White Blood Cell (WBC) Count 7.4 thou/uL (4.8-10.8)
[2018-07-29 15:09] LABS: INR-International Normal Ratio 1.1
--- NOTE | 2018-07-29 15:13 | RAD ---
TWO VIEWS CHEST: Comparison: 02-16-14 History: Hypertension and chest pain. FINDINGS: Two views of the chest show normal sized cardiomediastinal silhouette. There is no evidence of consol idation, mass, or pleural effusion. Degenerative changes are seen in the spine. IMPRESSION: No evidence of acute cardiopulmonary disease. POS: [facility]
[2018-07-29 15:23] LABS: ALT (SGPT) 8 U/L (8-55); AST (SGOT) 13 U/L (5-34); Albumin 4.6 g/dL (3.4-4.8); Alkaline Phosphatase 131 U/L (40-150); Anion Gap 12 mmol/L (10-20); BUN (Urea Nitrogen) 10 mg/dL (8.4-25.7); Bilirubin, Total 0.8 mg/dL (0.2-1.2); CK (CPK) 52 U/L (30-200); Calc. Creatinine Clearance 0 mL/min (70-130); Calcium 9.7 mg/dL (7.8-10.44); Carbon Dioxide 25 mmol/L (23-31); Chloride 105 mmol/L (98-107); Estimated GFR-MDRD 89; Globulin 2.4 g/dL (2.4-3.5); Glucose 110 mg/dL (83-110); Lipase 11 U/L (8-78); Magnesium 1.9 mg/dL (1.6-2.6); Potassium 3.7 mmol/L (3.5-5.1); Sodium 138 mmol/L (136-145)
--- NOTE | 2018-07-29 15:38 | CT ---
CT OF THE BRAIN WITHOUT CONTRAST: Date: 07/29/18 COMPARISON: None. HISTORY: Headache. TECHNIQUE: Multiple contiguous axial images were obtained in a CT of the brain without contrast. FINDINGS: The brain is normal in morphology and attenuation without focal lesions or confluent areas of infarct ion. There is no evidence of hydrocephalus, intracranial hemorrhage, or extra-axial fluid collection. The calvarium and overlying soft tissues are unremarkable. The visualized paranasal sinuses and masto id air cells are well aerated. IMPRESSION: No evidence of acute intracranial abnormality. POS: [facility]
[2018-07-29 15:39] LABS: CKMB 2.4 ng/mL (0-6.6); Troponin I Less than 0.010 ng/mL (< 0.028)
[2018-07-29 15:42] LABS: Bilirubin Negative (Negative); Blood, Urine Negative (Negative); Clarity CLEAR (Clear); Glucose, Urine (Dipstick) Negative (Negative); Leukocyte Negative (Negative); Nitrite Negative (Negative); Protein, Urine (Dipstick) Negative (Neg-Trace); Specific Gravity, Urine 1.016 (1.002-1.036); Urobilinogen 0.2 mg/dL (0.2-1.0)
[2018-07-29] MEDS ORDERED: Labetalol HCl 100 MG/20 ML VIAL ONE (16:09)
[2018-07-29] MEDS ORDERED: Nitroglycerin 2% Ointment 1 INCH/1 GM Packet ONE (17:50)
[2018-07-29] MEDS ORDERED: Ondansetron ODT 4 MG TAB SL PRN (19:25)
[2018-07-29] MEDS ORDERED: Ondansetron PF 4 MG/2 ML Vial IVP PRN ×2 (19:25→20:22)
[2018-07-29 19:27] VITALS: BMI 25.4
[2018-07-29] MEDS ORDERED: Promethazine HCl 25 MG/ML VIAL SLOW IVP SCH (20:00)
[2018-07-29] MEDS ORDERED: Promethazine HCl 25 MG/ML VIAL IM/IV PRN (20:22)
[2018-07-29] MEDS ORDERED: Labetalol HCl 100 MG/20 ML VIAL SLOW IVP PRN (20:22)
[2018-07-29] MEDS ORDERED: Morphine 2 MG/ML SYRINGE SLOW IVP PRN (20:22)
[2018-07-29] MEDS ORDERED: Ondansetron ODT 4 MG TAB PO PRN (20:22)
[2018-07-29] MEDS ORDERED: hydrALAZINE 20 MG/ML VIAL SLOW IVP PRN (20:22)
[2018-07-29] MEDS ORDERED: Promethazine HCl 25 MG in Sodium Chloride 0.9% 50 ML IVPB SCH (20:30)
[2018-07-29] MEDS ORDERED: Amlodipine 5 MG TAB PO SCH (20:30)
[2018-07-29] MEDS ORDERED: Promethazine HCl 25 MG in Sodium Chloride 0.9% 50 ML IVPB PRN (20:31)
[2018-07-29] MEDS: Sodium Chloride 0.9% 1,000 ML IV SCH (20:37)
[2018-07-29] MEDS: Penicillin V Potassium 250 MG TAB PO SCH (20:46)
[2018-07-29] MEDS ORDERED: Pantoprazole 40 MG VIAL IVP SCH (21:00)
[2018-07-29] MEDS: Acetaminophen 325 MG TAB PO PRN (22:13)
--- NOTE | 2018-07-29 23:59 | HP ---
PRIMARY CARE PHYSICIAN: Dr. Dixon. CHIEF COMPLAINT: Severe headache, nausea and vomiting. HISTORY OF PRESENT ILLNESS: Mr. Palmer is a pleasant 73-year-old gentleman who has a history of hy pertension and coronary artery disease. He was hospitalized last in our facility back in February for sep sis with joint infection due to Clostridium perfringens in multiple joints. He says that he was disc harged home and when he followed up with his overweaver, it was noted that his blood pressure was e xtremely low. He said he could barely hold his head up and at that time his overweaver took him of f of Benicar as well as amlodipine. He says shortly after that his blood pressure started to go back up, and he started taking Benicar again and he has been on Benicar for the last 2 months; however, i n the last week, he has noticed bad headaches and not feeling well off and on. He took his blood pre ssure and it was 190/104 and he said it felt like his head was about to blow off at top. He says the headache started on left side of his face and then went around to the back of his head and then towa rds the top. He took his blood pressure and it was 190/104. He has also been having problems with n ausea as well and for this reason, he came to the ER for evaluation. There it was noted that his blo od pressure has been elevated and the pressure initially was approximately 163/104 and he is being br ought into the hospital for hypertensive urgency. Please note that he did have a CT scan of the brai n in the ER, which was negative. Chest x-ray also done was negative. The patient denies any fevers, no chills and he has had a little bit of diarrhea off and on. No abdominal pain, no weakness in his extremities. REVIEW OF SYSTEMS: All systems were reviewed and are negative except for that mentioned in the histo ry of present illness. PAST MEDICAL HISTORY: Significant for hypertension, coronary artery disease, hypothyroidism, gastroe sophageal reflux disease, hyperlipidemia, and migraine headaches. PAST SURGICAL HISTORY: He has had a right hip replacement, bilateral knee replacements, prostatectom y and right shoulder surgery. SOCIAL HISTORY: He is a nonsmoker, nondrinker. Denies any drug use. FAMILY HISTORY: Significant for hypertension, heart disease in the family as well as brain cancer in his father. ALLERGIES: NIACIN and PECANS as well as STRAWBERRIES. MEDICATIONS: Include potassium 20 mEq daily, amlodipine 10 mg daily, citalopram 10 mg a day, loratad ine 10 mg daily, Pen-Vee K 250 mg twice a day, Dexilant 60 mg daily, Benicar 40/12.5 mg daily, levoth yroxine 75 mcg daily, tramadol 50 mg as needed and Plavix 75 mg daily. PHYSICAL EXAMINATION: GENERAL: He is alert and oriented. He does appear to be in some distress as he is having retching a nd vomiting during the interview. VITAL SIGNS: Initially blood pressure was 170/105, heart rate is in the 70s, respiratory rate of 16, and he is afebrile. HEENT: Pupils are equal, round, and reactive. Extraocular muscles are intact. Sclerae are anicteri c. Throat: There was no erythema, no exudates. NECK: No adenopathy, no bruits, no jugular venous distention. LUNGS: Clear to auscultation. There is no wheezing, no rales. CARDIOVASCULAR: He has a normal S1, S2. I did not appreciate an S3 or S4. Slight grade 2/6 systoli c murmur. No gallops. ABDOMEN: Soft, it is nontender, nondistended. Positive for bowel sounds. There is no rebound, no g uarding, no organomegaly. EXTREMITIES: There is no clubbing, cyanosis, no edema. No calf tenderness. His knee joint on the r ight is slightly larger than on the left, but there is no erythema, no fluctuance, no crepitus, no wa rmth. The right shoulder joint also showed some joint abnormalities, but again no warmth or crepitus . SKIN/INTEGUMENT: There are no skin changes. No rashes. LABORATORY DATA AND IMAGING DATA: White blood cell count 7.4, hemoglobin 15.1, hematocrit is 47.5, p latelet count is 235. Sodium is 138, potassium 3.7, chloride is 105, CO2 is 25, BUN of 10, creatinin e 0.85 and glucose is 110. Troponin is less than 0.010. Urinalysis was negative. INR is 1.1. He h ad EKG which was sinus rhythm. There are no ST wave changes. The rate was 68. This is by my readin g. Also had a chest x-ray that I read as being normal heart size. There is no evidence of any infil trates, effusions or obvious mass. ASSESSMENT AND PLAN: This is a 73-year-old gentleman that presents to the emergency room with elevat ed blood pressure with symptoms of severe headache and nausea and vomiting. Therefore, this makes as hypertensive urgency. 1. For hypertensive urgency, we will place him in observation, start him on p.r.n. medications for b lood pressure, given that he is vomiting right now. Try to get control of the nausea and vomiting an d headache and then restart his usual regular medications. Hopefully, this will render his blood pre ssure controlled. 2. History of coronary artery disease or coronary artery disease. This is clinically stable at this time. His initial troponin was negative. 3. Hypothyroidism. Also this appears to be clinically stable. We can restart his usual medication for thyroid. 4. Gastroesophageal reflux disease. This will be treated symptomatically with a proton pump inhibit or and the patient will be reassessed in the a.m. Hopefully, if his symptoms have resolved and his b lood pressure is better, he can be discharged home.
[2018-07-30] MEDS: Acetaminophen 325 MG TAB PO PRN (02:29)
[2018-07-30] MEDS: Sodium Chloride 0.9% 1,000 ML IV SCH ×2 (04:52→13:01)
[2018-07-30 05:13] LABS: Anion Gap 11 mmol/L (10-20); BUN (Urea Nitrogen) 10 mg/dL (8.4-25.7); Calc. Creatinine Clearance 96 mL/min (70-130); Calcium 8.9 mg/dL (7.8-10.44); Carbon Dioxide 25 mmol/L (23-31); Chloride 109 mmol/L (98-107); Estimated GFR-MDRD Greater than 90; Glucose 108 mg/dL (83-110); Potassium 3.5 mmol/L (3.5-5.1); Sodium 141 mmol/L (136-145)
[2018-07-30 05:32] LABS: #Lymphocytes 1.4 thou/uL (1.20-3.40); #Monocytes 0.5 thou/uL (0.11-0.59); %Basophils 0.2 % (0.0-1.0); %Eosinophils 0.2 % (0.0-10.0); %Monocytes 6.8 % (0.0-10.0); %Neutrophils 72.9 % (42.0-75.0); Hemoglobin 12.4 g/dL (14.0-18.0); Mean Corpuscular HGB CONC 32.4 g/dL (32.0-36.0); Mean Corpuscular Volume 89.4 fL (78.0-98.0); Mean Platelet Volume 7.4 fL (7.4-10.4); Platelet Count 208 thou/uL (130-400); RBC Distribution Width 13.3 % (11.5-14.5); White Blood Cell (WBC) Count 6.8 thou/uL (4.8-10.8)
[2018-07-30] MEDS ORDERED: Levothyroxine Sodium 75 MCG TAB PO SCH (06:00)
[2018-07-30] MEDS: Penicillin V Potassium 250 MG TAB PO SCH (08:46)
[2018-07-30] MEDS ORDERED: Loratadine 10 MG TAB PO SCH (09:00)
[2018-07-30] MEDS ORDERED: Enoxaparin Sodium 40 MG/0.4 ML SYRINGE SC SCH (09:00)
[2018-07-30] MEDS ORDERED: Potassium Chloride 20 MEQ TAB PO SCH (09:00)
[2018-07-30] MEDS ORDERED: Non-Formulary Item 1 EACH (Olmesartan/Hydrochlorothiazide [Benicar Hct] 1 TABLET) PO SCH (09:00)
[2018-07-30] MEDS ORDERED: Citalopram 10 MG TAB PO SCH (09:00)
[2018-07-30] MEDS ORDERED: Amlodipine 10 MG TAB PO SCH (09:00)
[2018-07-30] MEDS ORDERED: Hydrochlorothiazide 25 MG TAB PO SCH (09:00)
[2018-07-30 10:38] VITALS: BP 130/60; TEMP 98.4
== END 2018-07-30 15:13 | disposition home or self-care (01) ==
LOC: ERS 13:48 → 2SW 16:50
PROVIDERS: ADMIT Internal Medicine; ATTEND Internal Medicine
DX: I16.0 Hypertensive urgency (principal); I10 Essential (primary) hypertension; I25.10 Atherosclerotic heart disease of native coronary artery without angina pectoris; E03.9 Hypothyroidism, unspecified; K21.9 Gastro-esophageal reflux disease without esophagitis; G43.909 Migraine, unspecified, not intractable, without status migrainosus; E78.5 Hyperlipidemia, unspecified; Z88.8 Allergy status to other drugs, medicaments and biological substances; Z79.899 Other long term (current) drug therapy
CPT/HCPCS: 70450; 71046; 80048; 80053; 81003; 82550; 82553; 83605; 83690; 83735; 83880; 84484; 85025 ×2; 85610; 85730; 87040; 90662; 93005; 96361 ×3; 96372; 96374; 96375 ×2; 99285; G0008; G0378 ×2; 36415; 90471; C9113; J1650; J2270; J2405; J2550; J7050

== ENCOUNTER 2020-09-27 15:14 | Emergency (ER) | payer MEDICARE ==
--- NOTE | 2020-09-27 15:52 | RAD ---
XR Ankle Lt 3 View STANDARD INDICATION: Left ankle injury after stepping off a ladder COMPARISON: None. FINDINGS: Bones: There is calcination within the distal syndesmotic space of the lower left foreleg likely rela laith to prior syndesmotic injury. There is a ossific density seen just distal to the lateral malleolus likely reflecting sequela of prior fracture. No definite acute fracture or subluxation is e vident. There is enthesopathic change off the plantar calcaneus. 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 Subtalar joint: Normal. Visualized hindfoot: No acute fracture or subluxation demonstrated. Periarticular soft tissues: Normal. IMPRESSION: 1. No acute fracture or subluxation demonstrated. 2. 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 3. Posttraumatic changes of the left ankle as above
== END 2020-09-27 17:00 | disposition home or self-care (01) ==
LOC: ERS 15:14
DX: M76.62 Achilles tendinitis, left leg (principal); I25.2 Old myocardial infarction; I10 Essential (primary) hypertension

== ENCOUNTER 2022-09-11 05:53 | Day surgery (SDC) | payer MEDICARE ==
[2022-09-10 11:32] VITALS: BMI 26.4
[2022-09-11] MEDS ORDERED: fentaNYL PF 100 MCG/2 ML SYRINGE ONE (06:29)
[2022-09-11] MEDS ORDERED: Famotidine/PF 20 mg/2ml Vial ONE (07:03)
[2022-09-11] MEDS ORDERED: Bupivacaine/Epinephrine 0.25% 30 ML VIAL ONE (07:22)
[2022-09-11] MEDS ORDERED: CEFAZOLIN 2 GM VIAL ONE (07:45)
[2022-09-11] MEDS ORDERED: Sodium Chloride 0.9% 100 ML ONE (07:45)
[2022-09-11] MEDS ORDERED: Ondansetron PF 4 MG/2 ML Vial ONE (07:47)
[2022-09-11] MEDS ORDERED: GLYCOPYRROLATE/PF 0.2 MG/ML VIAL ONE (07:47)
[2022-09-11] MEDS ORDERED: PROPOFOL 200 MG/20 ML VIAL ONE (07:47)
[2022-09-11] MEDS ORDERED: Dexamethasone 20 MG/5 ML VIAL ONE (07:47)
[2022-09-11] MEDS ORDERED: ePHEDrine 50 MG/ML VIAL ONE (07:47)
[2022-09-11] MEDS ORDERED: Phenylephrine 10 MG/ML VIAL ONE (07:47)
== END 2022-09-11 10:12 | disposition home or self-care (01) ==
LOC: SDC 05:53
PROVIDERS: ATTEND Surgery
PROC: 0YU60JZ Supplement Left Inguinal Region with Synthetic Substitute, Open Approach (ICD-10-PCS; principal; 2022-09-11)
DX: K40.90 Unilateral inguinal hernia, without obstruction or gangrene, not specified as recurrent (principal); I10 Essential (primary) hypertension; I25.10 Atherosclerotic heart disease of native coronary artery without angina pectoris; E89.0 Postprocedural hypothyroidism; M19.90 Unspecified osteoarthritis, unspecified site; I25.2 Old myocardial infarction; Z79.890 Hormone replacement therapy; Z79.899 Other long term (current) drug therapy; Z88.8 Allergy status to other drugs, medicaments and biological substances; Z91.018 Allergy to other foods
CPT/HCPCS: 49505; C1781; J1100; J2370; J2405; J2704; J3490; S0028

== ENCOUNTER 2022-11-20 07:29 | Outpatient (CLI) | payer MEDICARE | END 2022-11-20 07:30 | disposition home or self-care (01) | LOC: NM 07:29 | PROVIDERS: ATTEND Specialist | DX: T84.84XA Pain due to internal orthopedic prosthetic devices, implants and grafts, initial encounter (principal); M16.11 Unilateral primary osteoarthritis, right hip; Z96.641 Presence of right artificial hip joint | CPT/HCPCS: 78315; A9503 ==

== ENCOUNTER 2023-02-12 23:36 | Emergency (ER) | payer OTHER, MEDICARE | END 2023-02-13 00:52 | disposition home or self-care (01) | LOC: ERS 23:36 | DX: S82.51XA Displaced fracture of medial malleolus of right tibia, initial encounter for closed fracture (principal); S82.61XA Displaced fracture of lateral malleolus of right fibula, initial encounter for closed fracture; I10 Essential (primary) hypertension; W01.0XXA Fall on same level from slipping, tripping and stumbling without subsequent striking against object, initial encounter | CPT/HCPCS: 27808 ==

== ENCOUNTER 2023-03-25 12:26 | Outpatient (CLI) | payer MEDICARE | END 2023-03-25 12:27 | disposition home or self-care (01) | LOC: BICULT 12:26 | PROVIDERS: ATTEND Urology | DX: N28.9 Disorder of kidney and ureter, unspecified (principal); N28.1 Cyst of kidney, acquired | CPT/HCPCS: 76770 ==

== ENCOUNTER 2024-03-03 09:56 | Outpatient (CLI) | payer MEDICARE | END 2024-03-03 09:57 | disposition home or self-care (01) | LOC: BICMRI 09:56 | PROVIDERS: ATTEND Family Medicine | DX: R47.81 Slurred speech (principal); J32.3 Chronic sphenoidal sinusitis | CPT/HCPCS: 70551 ==

== ENCOUNTER 2024-08-07 08:08 | Outpatient (CLI) | payer MEDICARE | END 2024-08-07 08:09 | disposition home or self-care (01) | LOC: ULT 08:08 | PROVIDERS: ATTEND Urology | DX: N28.9 Disorder of kidney and ureter, unspecified (principal); N28.1 Cyst of kidney, acquired | CPT/HCPCS: 36415; 76770; 80048; 81001; 84153; 87086 ==

== ENCOUNTER 2024-08-16 10:37 | Outpatient (CLI) | payer MEDICARE | END 2024-08-16 10:38 | disposition home or self-care (01) | LOC: RAD 10:37 | PROVIDERS: ATTEND Psychiatry & Neurology Neurology | DX: R13.10 Dysphagia, unspecified (principal); G12.29 Other motor neuron disease | CPT/HCPCS: 74230 ==

== ENCOUNTER 2025-06-29 14:08 | Emergency (ER) | payer MEDICARE ==
[2025-06-29] MEDS ORDERED: PROPOFOL 20 ML ONE (14:56)
== END 2025-06-29 17:30 | disposition home or self-care (01) ==
LOC: ERS 14:08
DX: S73.004A Unspecified dislocation of right hip, initial encounter (principal); I10 Essential (primary) hypertension; I48.91 Unspecified atrial fibrillation; X50.0XXA Overexertion from strenuous movement or load, initial encounter; Z79.01 Long term (current) use of anticoagulants; Z79.899 Other long term (current) drug therapy
CPT/HCPCS: 27265; 96374; 99152; J2704

== ENCOUNTER 2025-08-30 12:29 | Emergency (ER) | payer MEDICARE ==
[2025-08-30] MEDS ORDERED: Ondansetron PF 4 MG/2 ML Vial ONE (14:00)
[2025-08-30] MEDS ORDERED: Ketamine In 0.9 % NaCl 50 MG/5 ML SYRINGE ONE (14:00)
== END 2025-08-30 16:42 | disposition home or self-care (01) ==
LOC: ERS 12:29
DX: T84.020A Dislocation of internal right hip prosthesis, initial encounter (principal); I10 Essential (primary) hypertension; I25.2 Old myocardial infarction; I48.91 Unspecified atrial fibrillation; Z79.899 Other long term (current) drug therapy; Z79.890 Hormone replacement therapy; Z79.01 Long term (current) use of anticoagulants; Z79.2 Long term (current) use of antibiotics; Z55.6 Problems related to health literacy; X50.9XXA Other and unspecified overexertion or strenuous movements or postures, initial encounter
CPT/HCPCS: 73502; 93005; J2405; J3010; J3490; 27250; 96374; 96375; 99152